=== PATIENT | female | born 1955 | race Caucasian/White ===

== ENCOUNTER 2023-09-24 08:55 | Outpatient (OUT) | payer MEDICARE, SELFPAY ==
--- NOTE | 2023-09-24 | XR_ITS ---
The [address] [address] Patient Name: PAT DELAROSA MRN: [id number] date: 1955 Sex: F Assigned Patient Location: [facility] Current Patient Location: RAD Accession/Order Number: [id number] Exam Date: 09/24/2023 09:03 Report Date: 09/24/2023 11:26 At the request of: ASHWINI GARCIA Procedure: XR ankle RT min 3V PROCEDURE: XR ankle RT min 3V COMPARISON: 10/16/2022 HISTORY: RIGHT ANKLE PAIN FINDINGS: BONES:Stable tibiotalar joint arthroplasty. No acute fracture, dislocation or mechanical failure. 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 To severe degenerative changes with joint space narrowing and marginal osteophyte formation most significant talar navicular joint. Moderate enthesopathic spurring of the calcaneus at the Achilles and plantar insertions SOFT TISSUES:Negative. No visible soft tissue swelling. EFFUSION:None visible. OTHER: Negative. XR/XR ankle RT min 3V IMPRESSION: Stable tibiotalar arthroplasty Electronically authenticated by: EDI ADAMS Date: 09/24/2023 11:26
== END 2023-09-24 08:56 | disposition home or self-care (01) ==
LOC: RAD 09:00
PROVIDERS: Visit Provider Podiatrist Foot & Ankle Surgery
DX: M25.571 Pain in right ankle and joints of right foot (principal)
CPT/HCPCS: 73610

== ENCOUNTER 2024-10-06 07:09 | Outpatient (OUT) | payer MEDICARE, SELFPAY ==
--- NOTE | 2024-10-06 | XR_ITS ---
[address] [address] Patient Name: PAT DELAROSA MRN: [id number] date: 1955 Sex: F Assigned Patient Location: [facility] Current Patient Location: Accession/Order Number: [id number] Exam Date: 10/06/2024 07:15 Report Date: 10/08/2024 12:04 At the request of: ASHWINI GARCIA Procedure: XR ankle RT min 3V PROCEDURE: XR ankle RT min 3V COMPARISON: 09/24/2023 HISTORY: M25.571 Ankle pain FINDINGS: BONES:Stable tibiotalar arthroplasty in anatomic alignment. 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 Moderate degenerative changes midfoot and hindfoot with joint space narrowing marginal osteophyte formation and enthesopathic spurring SOFT TISSUES:Negative. No visible soft tissue swelling. EFFUSION:None visible. OTHER: Negative. XR/XR ankle RT min 3V IMPRESSION: Stable tibiotalar arthroplasty. Electronically authenticated by: EDI ADAMS Date: 10/08/2024 12:04
--- OUTSIDE RECORDS SUMMARY | 2024-10-06 07:12 | XMS_ITS | CCD ---
Demographics Address [address] [place] [address] Preferred Language en Marital Status Single Voodoo Affiliation Unknown Race White Ethnic Group Not or Lati no Author Organization [facility] ion [facility] Care Team Providers Care Benefits Clerk Name Role Phone MD Raji Haile Primary Care Provider [phone] SHIELA Hernandez Attending Provider [phone] MD Lazara Raji Primary Care Provider MD Minh Mazariegos Attending Provider MD Minh Mazariegos Admit Provider Minh Mazariegos Unavailable MD Lazara Raji Primary Care Provider MD Minh Mazariegos Attending Provider MD Lazara Raji Primary Care Provider MD Minh Mazariegos Attending Provider [phone] DR EDI ADAMS V Consulting Unavailable ASHWINI GARCIA Admitting Unavailable ASHWINI GARCIA Attending Unavailable ASHWINI GARCIA Consulting Unavailable RACH SEN Admitting Unavailable DR KIET PHAM Consulting Unavailable RACH SEN Attending Unavailable RACH SEN Consulting Unavailable Bharat Valdivia Unavailable MD Lazara [facility] Primary Care Provider MD Minh Mazariegos Attending Provider MD Bharat Valdivia Attending Provider MD Raji Haile Primary Care Provider [phone] MD Bharat Valdivia Attending Provider CLAUDE Valentine Attending Provider Sanjuana Valentine Unavailable MD Lazara [facility] Primary Care Provider CLAUDE Valentineica Attending Provider MD Bharat Valdivia Attending Provider [phone] Lazara ASHBY, [facility] Primary Care Provider MD Lazara [facility] Primary Care Provider [phone] Ly, DO Temi L Attending Provider Unavailable Primary Care Provider UnavailMD Minh Goldberg Attending Provider Frances REYES Yolanda Leach Unavailable Lazara ASHBY [facility] Primary Care Provider BAN, TRACIE Attending Unavailable BAN, TRACIE Admitting Unavailable [facility] Primary Care Unavailable MINH MAZARIEGOS Attending Unavailable MINH MAZARIEGOS Admitting Unavailable MD Lazara [facility] Care Provider [phone] Ly, DO Temi L Attending Provider SHIELA Horowitz Attending Provider MD Lazara [facility] Care Provider Ly, DO Temi L Attending Provider MD Bharat Valdivia Attending Provider Unav ailable BAN, TRACIE Referring Unavailable BAN, TRACIE Attending Unavailable LORI AGUAYO Referring Unavailable [facility] Primary Care Unavailable LY, TEMI Referring Unavailable [facility] Primary Care Unavailable THANIA WELLS Attending Unavailable [facility] Primary Care Unavailable AUGUSTINA MCGARRY Referring Unavailable BAN, TRACIE Referring Unavailable Ly, Temi L Admitting Unavailable Ly, Temi L Attending Unavailable [facility] Primary Care Unavailable Ly, Temi L Admitting Unavailable Ly, Temi L Attending Unavailable [facility] Primary Care Unavailable [facility] Primary Care Unavailable Bharat Valdivia Admitting UnavailBharat Flaherty Attending UnavailAnisa Heredia Admitting Unavailable Anisa Horowitz Attending Unavailable [facility] Care Unavailable [facility] Primary Care Unavailable Minh Mazariegos Admitting Unavailable Minh Mazariegos Attending Unavailable Ly, Temi L Admitting Unavailable Ly, Temi L Attending Unavailable [facility] Primary Care Unavailable SHAHBAZ ROLON Referring Unavailable LAZARA, RAJI Arreola Referring Unavailable LAZARA, RAJI Arreola Attending Unavailable LAZARA, RAJI Arreola Attending Unavailable APLING, ALICE Lona Attending Unavailable APLING, ALICE B Referring Unavailable LAZARA, RAJI F Attending Unavailable LAZARA, RAJI F Attending Unavailable LAZARA, RAJI F Referring Unavailable LAZARA, RAJI Arreola Referring Unavailable LAZARA, RAJI Arreola Attending Unavailable LAZARA, RAJI Arreola Referring Unavailable LAZARA, RAJI Arreola Attending Unavailable Allergies Allergy Classification Reported Allergen(s) Allergy Type Date of Onset Reaction(s) Facility [facility]io[facility]onists (1 source) Morphine Drug Allergy 09-08-19 08 [facility] (20 sources) Morphine; Translations: [morphine] Drug Allergy 09-08-19 08 Palpitations [facility] (1 source) bee venom Drug allergy (disorder) [facility] (20 sources) buPROPion Drug Allergy 03-30-20 18 Hallucinations [facility] (20 sources) Honey bee venom Allergy to substance 01-27-20 23 Swelling [facility] (20 sources) varenicline Drug Allergy 10-23-19 22 Hallucinations [facility] (1 source) Acetaminophen / oxyCODONE; Translations: [Percocet 5/325] Drug Allergy [facility] Rep[facility] (4 sources) bee venom protein (honey bee); Translations: [bee venom protein (honey bee)] Allergy to substance 05-12-20 24 Edema [facility] (18 sources) Acetaminophen / oxyCODONE Drug Allergy 03-08-20 24 Nausea And Vomiting [facility] Medications Current Medications Medication Drug Class(es) Dates Sig (Normalized) Sig (Original) [id number] 200 actuat albuterol 0.09 mg/actuat metered dose inhaler (4 sources) beta2-Adrenergic Agonist Start: 04-28-2023 take 2 puff(s) by inhalation every six hours for wheezing albuterol HFA 90 mcg/act inhaler Indications: Chronic obstructive pulmonary disease, unspecified COPD type ([facility]/HCC) Inhale 2 puffs every 6 (six) hours if needed for wheezing. 18 g 11 04/28/2023 Active ascorbic acid 500 mg oral capsule (1 source) Vitamin C Vitamin C 500 MG Orally Active 24 hr buPROPion hydrochloride 300 mg extended release oral tablet (9 sources) Aminoketone Start: 10-16-2023 End: 10-23-2023 take 1 tablet by mouth every twenty-four hours in the morning buPROPion XL (Wellbutrin XL) 150 MG 24 hr tablet Indications: Major depressive disorder, recurrent, moderate (HCC) (CMS/HCC) Take 1 tablet (150 mg) by mouth in the morning for 7 days. Take 150 mg po every day x 1 week then 300 mg po qam Do not crush, chew, or split.. 7 tablet 0 10/16/2023 10/23/2023 Active Start: 10-16-2023 End: 10-15-2024 take 1 tablet by mouth every twenty-four hours in the morning buPROPion XL (Wellbutrin XL) 300 MG 24 hr tablet Indications: Major depressive disorder, recurrent, moderate (CMS/HCC) Take 1 tablet (300 mg) by mouth in the morning. Do not crush, chew, or split.. 30 tablet 11 10/16/2023 06/08/2024 Discontinued (Therapy completed) Calcium + D 500-1000-40 MG-UNT-MCG (11 sources) Calcium + D 500- 1000-40 MG-UNT-MCG Orally Active calcium carbonate 1250 mg chewable tablet (20 sources) Start: 12-16-2023 take 1 tablet by mouth once daily Calcium Carbonate (Calcium 500) 500 mg calcium (1,250 mg) tablet,chewable Active 500 MG PO Daily December 16, 2023 12:00am Start: 01-11-2022 End: 04-02-2023 Calcium Carbonate (Calcium 6 00) 600 mg calcium (1,500 mg) Tablet Discontinued 1200 MG PO Daily January 11, 2022 12:00am April 02, 2023 11:13am End: 06-08-2024 calcium carbonate (Os-Reji) 1 250 (500 Ca) MG tablet Take 500 mg by mouth in the morning. 06/08/2024 Discontinued (Therapy completed) calcium carbonat e (CALCIUM 300 ORAL) Take by mouth once daily. Active calcium carbonat e (CALCIUM 300 ORAL) Take by mouth once daily. 0 Active calcium carbonate 1250 mg / cholecalciferol 1000 unt / vitamin k 0.4 mg chewable tablet (1 source) Vitamin D Calcium + D 500- 1000-40 MG-UNT-MCG Orally Active cholecalciferol 0.125 mg oral tablet (20 sources) Vitamin D Start: 01-11-2022 take 1 tablet by mouth once daily Cholecalciferol (Vitamin D3) (Vitamin D3) 125 mcg (5,000 unit) Tablet Active 5000 UNIT PO Daily January 11, 2022 12:00am Cholecalciferol, Vitamin D3, (VITAMIN D-3) 50 mcg (2,000 unit) cap Take by mouth once daily. Active doxycycline hyclate 100 mg oral tablet (8 sources) Tetracycline-class Drug Start: 09-02-2024 End: 09-12-2024 doxycycline (Vibra-Tabs) 100 MG tablet Indications: Chronic obstructive pulmonary disease with acute exacerbation (CMS/HCC) Take 1 tablet (100 mg) by mouth in the morning and 1 tablet (100 mg) before bedtime. Do all this for 10 days. Take with a full glass of water and do not lie down for at least 30 minutes after.. 20 tablet 09/02/2024 09/12/2024 Active Start: 06-22-2024 End: 07-02-2024 doxycycline (Vibra-Tabs) 100 MG tablet Indications: COPD exacerbation (CMS/HCC) Take 1 tablet (100 mg) by mouth in the morning and 1 tablet (100 mg) before bedtime. Do all this for 10 days. Take with a full glass of water and do not lie down for at least 30 minutes after.. 20 tablet 06/22/2024 07/02/2024 Active Start: 10-16-2023 End: 10-26-2023 doxycycline (Vibra-Tabs) 100 MG tablet Indications: COPD exacerbation (CMS/HCC) Take 1 tablet (100 mg) by mouth in the morning and 1 tablet (100 mg) before bedtime. Do all this for 10 days. Take with a full glass of water and do not lie down for at least 30 minutes after.. 20 tablet 0 10/16/2023 10/26/2023 Active DULoxetine 60 mg delayed release oral capsule (20 sources) Serotonin and Norepinephrine Reuptake Inhibitor Start: 01-12-2024 End: 01-11-2025 take 1 capsule by mouth once daily DULoxetine (Cymbalta) [address] capsule Indications: Major depressive disorder, recurrent, moderate (CMS/HCC) Take 1 capsule (60 mg) by mouth Daily Do not crush or chew. 30 capsule 11 01/12/2024 01/11/2025 Active Start: 12-16-2023 take 1 capsule by mo ut once daily Duloxetine Active 30 MG PO Daily December 16, 2023 12:00am FreeTextSig: TAKE 1 CAPSULE BY MOUTH EVERY DAY Oral; Note: Source Status: Taking; Refills: 2; Qty: 90 Each; Provider: LAZARA ELLIS Start: 12-16-2023 take 1 capsule by mo ut once daily Duloxetine Active 60 MG PO Daily December 16, 2023 12:00am FreeTextSig: TAKE 1 CAPSULE BY MOUTH EVERY DAY Oral; Note: Source Status: Taking; Refills: 2; Qty: 90 Each; Provider: LAZARA ELLIS Start: 10-16-2023 End: 10-30-2023 take 1 capsule by mouth in the morning DULoxetine (Cymbalta) [address] capsule Indications: Major depressive disorder, recurrent, moderate (HCC) (CMS/HCC) Take 1 capsule (30 mg) by mouth in the morning for 14 days. Do not crush or chew.. 14 capsule 0 10/16/2023 10/30/2023 Active Start: 07-22-2023 End: 10-16-2023 take 1 capsule by mouth in the morning DULoxetine (Cymbalta) [address] capsule Indications: Current mild episode of major depressive disorder without prior episode (HCC) (CMS/HCC) TAKE 1 CAPSULE(60 MG) BY MOUTH IN THE MORNING 90 capsule 0 07/22/2023 10/16/2023 Discontinued (Therapy completed) Start: 01-11-2022 End: 04-02-2023 take 60 mg by mouth once daily Duloxetine Discontinued 60 MG PO Daily January 11, 2022 12:00am April 02, 2023 11:13am Hxdbrqhmfwr-Lvloitncl-Ipunxk (Trelegy Ellipta) 200-62.5-25 MCG/ACT aerosol powder (20 sources) Start: 10-31-2023 take 1 puff(s) by inhalation once daily Cvcrdyclsqv-Pvwaimxmm-Seqbdz (Trelegy Ellipta) 200-62.5-25 MCG/ACT aerosol powder Indications: Chronic obstructive pulmonary disease, unspecified COPD type (CMS/HCC) Inhale 1 puff Daily 180 each 3 10/31/2023 Active Fluticasone-Umec lidin-Vilant (Trelegy Ellipta) 200-62.5-25 MCG/ACT aerosol powder Inhale. 0 Active Oxzsvfrqjrs-Knkiihhms-Algfad er (11 sources) Start: 12-16-2023 Gkjlzfmtkwf-Kafitcyxb-Cqopgd er (Trelegy Ellipta) 200-62.5-25 mcg blister with device Active 1 INH INHALATION Daily December 16, 2023 12:00am lnfthmqkhvw-asgifuslc-mtmmee er (TRELEGY ELLIPTA) 200-62.5-25 mcg inhalation powder (7 sources) take 1 puff(s) by inhalation once daily evrunuvfnah-uscghjzky-opxuyvtl (TRELEGY ELLIPTA) 200-62.5-25 mcg inhalation powder Inhale 1 Puff as instructed once daily. Active take 1 puff(s) by in halation once daily wreomhzstbv-uityiuehk-qiivdoau (TRELEGY ELLIPTA) 200-62.5-25 mcg inhalation powder Inhale 1 Puff as instructed once daily. 0 Active hydroCHLOROthiazide 25 mg oral tablet (20 sources) Thiazide Diuretic Start: 03-17-2023 End: 03-16-2024 take 1 tablet by mouth in the morning hydroCHLOROthiazide (HYDRODiuril) 25 MG tablet Indications: Essential hypertension (CMS/HCC) TAKE 1 TABLET(25 MG) BY MOUTH IN THE MORNING 90 tablet 3 12/19/2023 Active Lactobacillus acidophilus (7 sources) Lactobacillus acidophilus (PROBIOTIC ACIDOPHILUS ORAL) Take by mouth once daily. Active Lactobacillus ac idophilus (PROBIOTIC ACIDOPHILUS ORAL) Take by mouth once daily. 0 Active lidocaine 0.05 mg/mg medicated patch (3 sources) Antiarrhythmic, Amide Local Anesthetic Start: 06-20-2023 Lidocaine 5 % 1 patch remove after 12 hours Externally Once a day for 30 Jun, Active linaclotide 0.29 mg oral capsule (20 sources) Guanylate Cyclase-C Agonist Start: 02-24-2024 End: 02-23-2025 take 2 capsules by mouth before mealtime linaCLOtide (Linzess) 145 MCG capsule Indications: Mixed hyperlipidemia (CMS/HCC) Take 2 capsules (290 mcg) by mouth in the morning. Take before meals. 180 capsule 3 02/24/2024 06/08/2024 Discontinued (Therapy completed) Start: 01-02-2024 Linzess 290 MC G capsule 04/05/2024 Active Start: 01-11-2022 End: 05-18-2024 take 1 capsule by mouth once daily Linaclotide (Linzess) 145 mcg capsule Discontinued 145 MCG PO Daily January 11, 2022 12:00am May 18, 2024 11:03am take 1 capsule by mo [facility] every twenty-four hours Linzess 145 MCG 1 capsule Orally Once a day for 30 days Active Linzess 145 MCG Not Available Oral for 30 Days Active lipase/protease/amylase (JING PEP ORAL) (7 sources) take 1 capsule by mouth once daily at mealtime lipase/protease/amylase (ZENPEP ORAL) Take by mouth. 40,000 international unit(s) 2 capsules with meals daily and 1 capsule with snacks. Active take 1 capsule by [facility] once daily at mealtime lipase/protease/amylase (ZENPEP ORAL) Ta ke by mouth. 40,000 international unit(s) 2 capsules with meals daily and 1 capsule with snacks. 0 Active methylPREDNISolone 4 mg oral tablet (3 sources) Corticosteroid Start: 06-20-2023 Medrol 4 MG as directed Orally daily for Jun, Active metoprolol tartrate 25 mg oral tablet (20 sources) beta-Adrenergic Yara take 1 tablet by mouth once metoprolol tartrate (Lopressor) 25 MG tablet Take 25 mg by mouth 1 (one) time Active metoprolol tartr ate (Lopressor) 25 MG tablet every 12 (twelve) hours Active mirtazapine 30 mg oral tablet (20 sources) Start: 03-19-2023 take 1 tablet by mouth at bedtime mirtazapine (Remeron) 30 MG tablet Take 30 mg by mouth at bedtime 03/19/2023 Active Nirmatrelvir&Ritonavir 300/100 (Paxlovid, 300/100,) 20 x 150 MG & 10 x 100MG tablet therapy pack (7 sources) Start: 08-30-2024 take 3 tablets by mouth in the morning Nirmatrelvir&Ritonavir 300/100 (Paxlovid, 300/100,) 20 x 150 MG & 10 x 100MG tablet therapy pack Indications: COVID-19 Take 3 tablets by mouth in the morning and 3 tablets before bedtime. 30 each 08/30/2024 Active Inkom 1-Zjd-Wbe-Fish Oil (Fish Oil) 1,200 (144-216) mg Capsule (20 sources) Start: 01-11-2022 take 1 capsule by mouth once daily Inkom 8-Rti-Lxr-Fish Oil (Fish Oil) 1,200 (144-216) mg Capsule Active 1 CAP PO Daily January 11, 2022 8:51am Start: 01-11-2022 take 1 capsule by mo uth once daily Inkom 7-Asl-Kps-Fish Oil (Fish Oil) 1,200 (144-216) mg Capsule Active 1 CAP PO Daily January 10, 2022 11:00pm Start: 01-11-2022 take 1 capsule by mo uth once daily Inkom 3-Zkf-Jif-Fish Oil (Fish Oil) 1,200 (144-216) mg Capsule Active 1 CAP PO Daily January 11, 2022 12:00am omega-3 DHA-EPA (FISH OIL) 1,200 (144-216) mg capsule (7 sources) take 1 capsule by mo uth once daily at breakfast omega-3 DHA-EPA (FISH OIL) 1,200 (144-216) mg capsule Take 1 capsule by mouth daily with breakfast. Active take 1 capsule by mo uth once daily at breakfast omega-3 DHA-EPA (FISH OIL) 1,200 (144-21 6) mg capsule Take 1 capsule by mouth daily with breakfast. 0 Active predniSONE 10 mg oral tablet (20 sources) Start: 09-02-2024 End: 09-12-2024 take 1 tablet by mouth five times daily, then take 1 tablet by mouth four times daily, then take 1 tablet by mouth three times daily, then take 1 tablet by mouth twice daily, then take 1 tablet by mouth once daily predniSONE (Deltasone) 10 MG tablet Indications: Chronic obstructive pulmonary disease with acute exacerbation (CMS/HCC) Take 1 tablet (10 mg) by mouth 5 (five) times a day for 2 days, THEN 1 tablet (10 mg) 4 (four) times a day for 2 days, THEN 1 tablet (10 mg) 3 (three) times a day for 2 days, THEN 1 tablet (10 mg) 2 (two) times a day for 2 days, THEN 1 tablet (10 mg) Daily for 2 days. 30 tablet 09/02/2024 09/12/2024 Active Start: 10-22-2024 End: 06-29-2024 take 1 tablet by mouth four times daily, then take 1 tablet by mouth three times daily, then take 1 tablet by mouth twice daily, then take 1 tablet by mouth once daily predniSONE (Deltasone) 10 MG tablet Indications: COPD exacerbation (CMS/HCC) Take 1 tablet (10 mg) by mouth 4 (four) times a day for 2 days, THEN 1 tablet (10 mg) 3 (three) times a day for 2 days, THEN 1 tablet (10 mg) 2 (two) times a day for 2 days, THEN 1 tablet (10 mg) Daily for 2 days. 20 tablet 06/22/2024 06/29/2024 Active Start: 10-16-2023 End: 10-26-2023 take 1 tablet by mouth five times daily, then take 1 tablet by mouth four times daily, then take 1 tablet by mouth three times daily, then take 1 tablet by mouth twice daily, then take 1 tablet by mouth once daily predniSONE (Deltasone) 10 MG tablet Indications: COPD exacerbation (CMS/HCC) Take 1 tablet (10 mg) by mouth 5 (five) times a day for 2 days, THEN 1 tablet (10 mg) 4 (four) times a day for 2 days, THEN 1 tablet (10 mg) 3 (three) times a day for 2 days, THEN 1 tablet (10 mg) 2 (two) times a day for 2 days, THEN 1 tablet (10 mg) Daily for 2 days. 30 tablet 0 10/16/2023 10/26/2023 Active Start: 01-25-2022 Prednisone Act eleuterio 1 dose pk PO per package directions January 25, 2022 8:15am take 4 tabs for 3 days then take 3 tabs for 3 days then take 2 tabs for 3 days then take 1 tab for 3 days Start: 01-25-2022 End: 04-02-2023 Prednisone Discontinued 1 do se pk PO per package directions January 24, 2022 11:00pm April 02, 2023 10:14am take 4 tabs for 3 days then take 3 tabs for 3 days then take 2 tabs for 3 days then take 1 tab for 3 days Start: 01-25-2022 End: 04-02-2023 Prednisone Discontinued 1 do se pk PO per package directions January 25, 2022 12:00am April 02, 2023 11:14am take 4 tabs for 3 days then take 3 tabs for 3 days then take 2 tabs for 3 days then take 1 tab for 3 days Start: 01-25-2022 Prednisone Act eleuterio 1 dose pk PO per package directions January 24, 2022 11:00pm take 4 tabs for 3 days then take 3 tabs for 3 days then take 2 tabs for 3 days then take 1 tab for 3 days Start: 01-25-2022 Prednisone Act eleuterio 1 dose pk PO per package directions January 25, 2022 12:00am take 4 tabs for 3 days then take 3 tabs for 3 days then take 2 tabs for 3 days then take 1 tab for 3 days Probiotic Product (DAILY PRO BIOTIC PO) (20 sources) Probiotic Produc t (DAILY PROBIOTIC PO) Take by mouth Active Probiotic Produc t (DAILY PROBIOTIC PO) Take by mouth. Active Probiotic Produc t (DAILY PROBIOTIC PO) Take by mouth. 0 Active Turmeric Curcumin 500 MG (12 sources) Turmeric Curcumi n 500 MG Orally Active Vitamin C 500 MG (11 sources) Vitamin C 500 MG Orally Active Completed/Discontinued Medications Medication Drug Class(es) Dates Sig (Normalized) Sig (Original) acetaminophen 325 mg / HYDROcodone bitartrate 5 mg oral tablet (9 sources) Opioid Agonist Start: 06-07-2023 End: 06-08-2024 HYDROcodone-acetami nophen ([place]) 5-325 MG tablet 06/07/2023 06/08/2024 Discontinued (Therapy completed) acetaminophen 325 mg / oxyCODONE hydrochloride 5 mg oral tablet (20 sources) Opioid Agonist Start: 07-15-2017 End: 01-11-2022 take 1 tablet by mouth every six hours Oxycodone-Acetamino phen Discontinued 1 TAB PO Q6H 40 14 July 15, 2017 1:00am January 11, 2022 8:42am amylase [id number] unt / lipase 49255 unt / protease [id number] unt delayed release oral capsule (13 sources) Start: 06-02-2023 End: 06-08-2024 take 2 capsules by mouth three times daily at mealtime, then take 1 capsule by mouth twice daily Zenpep [id number] units capsule delayed-release particles capsule TAKE 2 CAPSULES BY MOUTH THREE TIMES DAILY WITH MEALS AND 1 CAPSULE TWICE DAILY WITH SNACKS 06/02/2023 06/08/2024 Discontinued (Therapy completed) Start: 05-29-2023 take 2 capsules by m outh once daily at mealtime, then take 1 capsule by mouth once daily Zenpep [id number] UNIT 2 capsules with meals and 1 with snacks Orally daily for 30 days Please allow for 3 meals and 2 snacks daily May, Active atorvastatin 20 mg oral tablet (20 sources) HMG-CoA Reductase Inhibitor Start: 07-02-2017 End: 01-11-2022 take 1 tablet by mouth once daily at bedtime Atorvastatin Discontinued 1 TAB PO Daily at bedtime July 02, 2017 12:00am January 11, 2022 8:37am 120 actuat budesonide 0.16 mg/actuat / formoterol fumarate 0.0045 mg/actuat metered dose inhaler (20 sources) Corticosteroid, beta2-Adrenergic Agonist Start: 01-11-2022 End: 12-16-2023 take 1 puff(s) by inhalation twice daily Budesonide-Formote rol (Symbicort) 160-4.5 mcg/actuation HFA aerosol inhaler Discontinued 2 PUFF INHALATION Twice daily January 11, 2022 12:00am December 16, 2023 9:36am Symbicort 160-4. 5 MCG/ACT Not Available Inhalation for 30 Days Active Symbicort 160-4. 5 MCG/ACT Not Available Inhalation for 30 Days Active cephalexin 500 mg oral capsule (20 sources) Cephalosporin Antibacterial Start: 01-25-2022 End: 04-02-2023 take 500 mg by mouth three times daily Cephalexin Discontinued 500 MG PO Three times daily January 25, 2022 12:00am April 02, 2023 11:14am Start: 07-15-2017 End: 01-11-2022 take 1 capsule by mouth every eight hours Cephalexin (Keflex) 500 mg capsule Discontinued 500 MG PO Q8H 21 July 15, 2017 1:00am January 11, 2022 8:42am cetirizine hydrochloride 10 mg oral capsule (5 sources) Histamine-1 Receptor Antagonist Start: 05-08-2010 End: 02-02-2024 CETIRIZINE 10 MG CAP cyclobenzaprine hydrochloride 10 mg oral tablet (20 sources) Muscle Relaxant Start: 07-02-2017 End: 01-11-2022 take 1 tablet by mouth once daily at bedtime Cyclobenzaprine Discontinued 1 TAB PO Daily at bedtime 40 July 15, 2017 8:19am January 11, 2022 8:42am Start: 09-04-2007 End: 02-02-2024 take 10 mg by mouth three times daily Cyclobenzaprine Discontinued 10 MG PO Three times daily 40 January 25, 2022 12:00am April 02, 2023 11:13am docosahexaenoic acid 120 mg / eicosapentaenoic acid 180 mg oral capsule (9 sources) End: 06-08-2024 omega-3 (Fish Oil) 1000 MG capsule 1 capsule 1 (one) time each day at the same time. 06/08/2024 Discontinued (Therapy completed) docusate sodium 50 mg / sennosides, alf 8.6 mg oral tablet (20 sources) Start: 07-15-2017 End: 01-11-2022 take 2 tablets by mouth twice daily Sennosides-Docusa te Sodium (Dok Plus) 8.6-50 mg Tablet Discontinued 2 TAB PO Twice daily 40 July 15, 2017 1:00am January 11, 2022 8:42am escitalopram 20 mg oral tablet (20 sources) Serotonin Reuptake Inhibitor Start: 07-02-2017 End: 01-11-2022 take 1 tablet by mouth once daily Escitalopram Oxalate Discontinued 1 TAB PO Daily July 02, 2017 12:00am January 11, 2022 8:42am 24 hr etodolac 500 mg extended release oral tablet (20 sources) Nonsteroidal Anti-inflammatory Drug Start: 01-11-2022 End: 04-02-2023 take 500 mg by mouth twice daily Etodolac Discontinued 500 MG PO Twice daily January 11, 2022 12:00am April 02, 2023 11:13am fluconazole 100 mg oral tablet (5 sources) Azole Antifungal Start: 03-30-2024 End: 06-08-2024 take 1 tablet by mouth once daily fluconazole (Diflucan) 100 MG tablet Indications: Thrush Take 1 tablet (100 mg) by mouth Daily 3 tablet 03/30/2024 06/08/2024 Discontinued (Therapy completed) Ctmneu-Kaybebgv-Rojigl e (Zenpep) 40,000-126,000- 168,000 unit capsule,delayed release(DR/EC) (20 sources) Start: 11-27-2023 End: 05-18-2024 Apamss-Kbtonsgh-V mylase (Zenpep) 40,000-126,000- 168,000 unit capsule,delayed release(DR/EC) Discontinued 0 PO As Directed November 27, 2023 10:59am May 18, 2024 11:03am 2 capsules three times a day and 1 capsule with a snack orally as directed; Start: 11-27-2023 Lipase-Proteas e-Amylase (Zenpep) 40,000-126,000- 168,000 unit capsule,delayed release(DR/EC) Active 0 PO As Directed November 27, 2023 10:59am 2 capsules three times a day and 1 capsule with a snack orally as directed; Start: 11-27-2023 End: 11-27-2023 take [id number] capsules by mouth three times daily at mealtime Egjrih-Xxttiwss-Oyevkzb (Zenpep) 40,000-126,000- 168,000 unit capsule,delayed release(DR/EC) Discontinued 1 CAP PO Three times daily November 27, 2023 12:00am November 27, 2023 11:00am administer with meals and/or snacks meloxicam 15 mg oral tablet (5 sources) Nonsteroidal Anti-inflammatory Drug Start: 09-04-2007 End: 02-02-2024 MELOXICAM 15 MG TAB niacin 500 mg oral tablet (5 sources) Nicotinic Acid Start: 05-08-2010 End: 02-02-2024 NIACIN 500 MG TAB omeprazole 40 mg delayed release oral capsule (20 sources) Proton Pump Inhibitor Start: 03-09-2024 End: 08-31-2027 take 1 capsule by mouth before mealtime omeprazole (PriLOSEC) [address] capsule Indications: Gastroesophageal reflux disease without esophagitis Take 1 capsule (40 mg) by mouth in the morning. Take before meals. Do not crush or chew.. 90 capsule 3 03/09/2024 09/15/2024 Discontinued (Reorder) Start: 07-02-2017 End: 01-11-2022 take 40 mg by mouth once daily Omeprazole Active 40 MG PO Daily January 11, 2022 12:00am oxyCODONE hydrochloride 5 mg oral tablet (20 sources) Opioid Agonist Start: 01-25-2022 End: 04-02-2023 take 5-10 mg by mouth every six hours Oxycodone Discontinued 5 - 10 MG PO Q6H 20 04January 25, 2022 April 02, 2023 11:14am polyethylene glycol 3350 [id number] mg / potassium chloride 2970 mg / sodium bicarbonate 6740 mg / sodium chloride 5860 mg / sodium sulfate 47006 mg powder for oral solution (5 sources) Osmotic Laxative Start: 05-13-2024 End: 06-08-2024 GaviLyte-G 236 g solution FOLLOW INSTRUCTIONS GIVEN BY OFFICE 05/13/2024 06/08/2024 Discontinued (Therapy completed) Start: 05-12-2024 End: 06-01-2024 Peg 3350-Electrolytes (Golyt glenn) 236-22.74-6.74 -5.86 gram recon soln Discontinued 240 ML PO Q10M 3999May 12, 2024 12:00am June 01, 2024 10:31am Follow instructions given by office RABEprazole sodium 20 mg delayed release oral tablet (5 sources) Proton Pump Inhibitor Start: 05-08-2010 End: 02-02-2024 rabeprazole sodium(ACIPHEX 20 MG TAB) simvastatin 40 mg oral tablet (5 sources) HMG-CoA Reductase Inhibitor Start: 05-08-2010 End: 02-02-2024 SIMVASTATIN 40 MG TAB traZODone hydrochloride 50 mg oral tablet (5 sources) Serotonin Reuptake Inhibitor Start: 05-08-2010 End: 02-02-2024 TRAZODONE 50 MG TAB Triamcinolone (20 sources) Corticosteroid Start: 03-11-2018 Kenalog -40 mg Mar, 10 mg Start: 01-15-2018 Kenalog -40 mg December, 10 mg Problems Active Problems Problem Classification Problem Date Documented Da te Episodic/Chronic Abdominal hernia (4 sources) Hiatal hernia; Translations: [Diaphragmatic hernia without obstruction or gangrene] Episodic Anal and rectal conditions (1 source) Disease of anus and rectum, unspecified; Translations: [Anal lesion] Onset: Episodic Anxiety disorders (20 sources) Anxiety; Translations: [Anxiety disorder, unspecified] Onset: 6 05-30-2023 Chronic Aortic; peripheral; and visceral artery aneurysms (5 sources) Aortic aneurysm; Translations: [Aortic aneurysm of unspecified site, without rupture] Chronic Cataract (20 sources) Senile cataract; Translations: [Unspecified age-related cataract] Onset: 0 05-02-2010 Chronic Chronic obstructive pulmonary disease and bronchiectasis (20 sources) Chronic obstructive lung disease; Translations: [Chronic obstructive pulmonary disease, unspecified] Onset: 5 01-28-2023 Chronic Disorders of lipid metabolism (20 sources) Mixed hyperlipidemia; Translations: [Mixed hyperlipidemia] Onset: 6 01-28-2023 Chronic E Codes: Fall (1 source) Unspecified fall, initial encounter Episodic Esophageal disorders (20 sources) Gastroesophageal reflux disease; Translations: [Gastro-esophageal reflux disease without esophagitis] Onset: 6 Chronic Essential hypertension (20 sources) Essential hypertension; Translations: [Essential (primary) hypertension] Onset: 8 01-28-2023 Chronic Gastritis and duodenitis (20 sources) Atrophic gastritis; Translations: [Chronic atrophic gastritis without bleeding] Onset: 9 01-28-2023 Chronic Genitourinary symptoms and ill-defined conditions (20 sources) Genuine stress incontinence; Translations: [Stress incontinence (female) (male)] Onset: 0 01-28-2023 Chronic Immunizations and screening for infectious disease (3 sources) Patient encounter status; Translations: [Encounter for screening for human immunodeficiency virus [HIV]] 01-27-2024 Episodic Miscellaneous mental health disorders (20 sources) Primary insomnia; Translations: [Primary insomnia] Onset: 6 01-28-2023 Chronic Mood disorders (20 sources) Recurrent major depressive episodes, moderate ; Translations: [Major depressive disorder, recurrent, moderate] Onset: 8 01-28-2023 Chronic Noninfectious gastroenteritis (2 sources) Gastroenteritis; Translations: [Noninfective gastroenteritis and colitis, unspecified] 09-14-2024 Episodic Nonspecific chest pain (2 sources) Chest wall pain; Translations: [Other chest pain] 06-22-2024 Episodic Osteoarthritis (20 sources) Arthritis of left hip; Translations: [Unilateral primary osteoarthritis, left hip] Onset: 04-05-201 8 Chronic Other acquired deformities (11 sources) Lumbar spondylolisthesis; Translations: [Spondylolisthesis, lumbar region] Episodic Other acquired deformities (4 sources) Spondylolisthesis, lumbar region Onset: 2 Resolved: 2 Episodic Other and unspecified benign neoplasm (1 source) Polyp ; Translations: [Benign neoplasm, unspecified site] 04-27-2024 Episodic Other and unspecified benign neoplasm (1 source) Personal history of colonic polyps; Translations: [Personal history of colonic polyps] 05-12-2024 Episodic Other and unspecified benign neoplasm (1 source) Benign neoplasm, unspecified site; Translations: [Adenomatous polyposis] Onset: 4 Episodic Other connective tissue disease (20 sources) Artificial knee joint present; Translations: [Presence of unspecified artificial knee joint] Onset: 8 01-28-2023 Chronic Other connective tissue disease (20 sources) Arthrodesis status; Translations: [Arthrodesis status] Onset: 2 Resolved: 2 Episodic Other connective tissue disease (8 sources) History of lumbar fusion; Translations: [Arthrodesis status] 01-20-2024 Episodic Other disorders of stomach and duodenum (6 sources) Indigestion; Translations: [Functional dyspepsia] Episodic Other disorders of stomach and duodenum (1 source) Functional dyspepsia Episodic Other gastrointestinal disorders (20 sources) Irritable bowel syndrome characterized by constipation; Translations: [Irritable bowel syndrome with constipation] Onset: 8 01-28-2023 Chronic Other gastrointestinal disorders (1 source) Constipation, unspecified Episodic Other gastrointestinal disorders (2 sources) Chronic constipation; Translations: [Other constipation] 05-12-2024 Episodic Other gastrointestinal disorders (2 sources) Other constipation; Translations: [Constipation, unspecified] 05-12-2024 Episodic Other nervous system disorders (20 sources) Cervical myelopathy; Translations: [Disease of spinal cord, unspecified] Onset: 4 01-20-2024 Chronic Other nervous system disorders (12 sources) Disease of spinal cord, unspecified; Translations: [Cervical spondylosis with myelopathy] Onset: 2 Resolved: 2 Chronic Other nervous system disorders (20 sources) Chronic pain; Translations: [Other chronic pain] Onset: 6 01-28-2023 Chronic Other nutritional; endocrine; and metabolic disorders (1 source) Abnormal weight loss Episodic Other screening for suspected conditions (not mental disorders or infectious disease) (2 sources) Imaging of thorax abnormal; Translations: [Abnormal findings on diagnostic imaging of other specified body structures] 06-22-2024 Chronic Other screening for suspected conditions (not mental disorders or infectious disease) (20 sources) Mammography abnormal; Translations: [Other abnormal and inconclusive findings on diagnostic imaging of breast] Onset: 7 04-28-2023 Episodic Other upper respiratory disease (20 sources) Allergic rhinitis due to pollen; Translations: [Allergic rhinitis due to pollen] Onset: 0 01-28-2023 Chronic Other upper respiratory disease (20 sources) Seasonal allergy; Translations: [Other seasonal allergic rhinitis] Onset: 9 04-28-2023 Chronic Other upper respiratory infections (20 sources) Sinusitis; Translations: [Chronic sinusitis, unspecified] Onset: 9 04-28-2023 Chronic Peripheral and visceral atherosclerosis (20 sources) Intermittent claudication; Translations: [Peripheral vascular disease, unspecified] Onset: 0 04-28-2023 Chronic Residual codes; unclassified (20 sources) Obstructive sleep apnea syndrome; Translations: [Obstructive sleep apnea (adult) (pediatric)] Onset: 8 01-28-2023 Chronic Residual codes; unclassified (2 sources) Tobacco user; Translations: [Tobacco use] 10-16-2023 Episodic Residual codes; unclassified (1 source) Family history of leukemia; Translations: [Family history of leukemia] 04-27-2024 Episodic Residual codes; unclassified (1 source) Family history of breast cancer; Translations: [Family history of malignant neoplasm of breast] 04-27-2024 Episodic Residual codes; unclassified (1 source) Family history of cancer of colon; Translations: [Family history of malignant neoplasm of digestive organs] 04-27-2024 Episodic Residual codes; unclassified (1 source) Family history of leukemia; Translations: [Family history of leukemia] Onset: Episodic Residual codes; unclassified (1 source) Family history of malignant neoplasm of breast; Translations: [Family history of breast cancer] Onset: 4 Episodic Residual codes; unclassified (1 source) Family history of malignant neoplasm of digestive organs; Translations: [Family history of colon cancer] Onset: 4 Episodic Spondylosis; intervertebral disc disorders; other back problems (20 sources) Lumbar spondylosis; Translations: [Other intervertebral disc degeneration, lumbar region] Onset: 2 Resolved: 2 Chronic Substance-related disorders (20 sources) Smoker; Translations: [Nicotine dependence, unspecified, uncomplicated] Onset: 4 02-02-2024 Chronic Unclassified (20 sources) Patient on antidepressant monitoring plan Onset: 3 08-19-2023 Unclassified (20 sources) Baseline PHQ-9 Onset: 3 08-19-2023 Unclassified (1 source) Abdominal aortic aneurysm, without rupture, unspecified; Translations: [Abdominal aortic aneurysm, without rupture, unspecified] Onset: 4 Unclassified (1 source) Low back pain, unspecified; Translations: [Low back pain, unspecified] Onset: 4 Past or Other Problems Problem Classification Problem Date Documented Da te Episodic/Chronic Abdominal pain (20 sources) Unspecified abdominal pain; Translations: [Epigastric pain] Onset: 06-05-2024 Episodic Gastritis and duodenitis (20 sources) Gastritis; Translations: [Gastritis, unspecified, without bleeding] Onset: 01-28-2023 01-28-2023 Episodic Headache; including migraine (20 sources) Headache disorder; Translations: [Other headache syndrome] Onset: 09-03-2021 01-28-2023 Episodic Other and unspecified benign neoplasm (20 sources) History of polyp of colon; Translations: [Personal history of colonic polyps] Onset: 06-05-2024 05-12-2024 Episodic Other connective tissue disease (20 sources) Full thickness rotator cuff tear; Translations: [Complete rotator cuff tear or rupture of left shoulder, not specified as traumatic] Onset: 11-03-2018 01-28-2023 Episodic Other connective tissue disease (20 sources) Recurrent falls ; Translations: [Repeated falls] Onset: 05-14-2021 04-28-2023 Episodic Other connective tissue disease (20 sources) Tear of left rotator cuff; Translations: [Unspecified rotator cuff tear or rupture of left shoulder, not specified as traumatic] Onset: 03-19-2018 04-28-2023 Episodic Other connective tissue disease (19 sources) History of cervical spine fusion; Translations: [Arthrodesis status] Onset: 06-05-2024 04-22-2024 Episodic Other connective tissue disease (18 sources) Myalgia caused by statin; Translations: [Myalgia, unspecified site] Onset: 11-28-2023 11-28-2023 Episodic Other gastrointestinal disorders (20 sources) Constipation; Translations: [Constipation, unspecified] Onset: 01-28-2023 01-28-2023 Episodic Other lower respiratory disease (20 sources) Productive cough ; Translations: [Productive cough] Onset: 05-24-2019 04-28-2023 Episodic Other nervous system disorders (20 sources) Impairment of balance; Translations: [Other abnormalities of gait and mobility] Onset: 05-14-2021 04-28-2023 Episodic Pancreatic disorders (not diabetes) (20 sources) Exocrine pancreatic insufficiency; Translations: [Exocrine pancreatic insufficiency] Onset: 06-05-2024 Episodic Residual codes; unclassified (20 sources) History of hysterectomy for benign disease; Translations: [Acquired absence of both cervix and uterus] Onset: 05-06-2019 01-28-2023 Episodic Spondylosis; intervertebral disc disorders; other back problems (20 sources) Spinal stenosis of lumbar region; Translations: [Spinal stenosis, lumbar region with neurogenic claudication] Onset: 10-15-2021 Resolved: 04-23-2022 01-24-2022 Episodic Unclassified (1 source) Abdominal aortic aneurysm (AAA) 3.0 cm to 5.0 cm in diameter in female I71.40 Viral infection (2 sources) Anal warts; Translations: [Anogenital (venereal) warts] Onset: 01-27-2024 01-20-2024 Episodic Results Test Name Value Interpretation Reference Range Facility BI MAMMOGRAM SCREENING TOMOS YNTHESIS BILATERALon 09-29-2024 BI MAMMOGRAM SCREENING TOMOSYNTHESIS BILATERAL This is a summary report. The complete report is available in the patient's medical record. If you cannot access the medical record, please contact the sending organization for a detailed fax or copy. Examination: BI MAMMOGRAM SCREENING TOMOSYNTHESIS BILATERAL Clinical History: screen Technique: Screening digital mammography study of both breasts was performed with 2-D and 3-D tomosynthesis imaging. Study was compared to the prior exam dated 09/10/2023. Findings: There is no evidence of interval dominant spiculated mass, grouped microcalcifications, or skin thickening which would be suggestive of malignancy. Scattered benign-appearing calcifications are noted bilaterally. Axillary lymph nodes are noted bilaterally. IMPRESSION: Impression: No specific evidence of malignancy seen in either breast. BIRADS 2 - Benign Findings DENSITY: The breasts are heterogeneously dense, which may obscure small masses. FOLLOW-UP: Routine Screening Mammogram ELECTRONICALLY SIGNED BY: Eduardo Castro M.D. Normal Not Available CT CHEST W IV CONTRASTon CT CHEST W IV CONTRAST EXAM: CT Chest with Contrast. REASON FOR EXAM: Right upper chest pain status post falling one month ago. COMPARISON: CTA chest July 09, 2024. TECHNIQUE: Multiplanar images of the chest obtained. 100 mL of Isovue-300 IV administered without reported complication. FINDINGS: The lower neck is without abnormality. No mediastinal adenopathy. Sliver of fluid in the superior pericardial recess versus lymph node present. Previously measuring 1.65 cm in diameter and 22 Hounsfield units. Currently measuring 1.34 cm in diameter and 41 Hounsfield units. Morphologically slightly smaller. Ectasia of the ascending aorta is present, maximum dimension 3.64 cm, unchanged. Heart not enlarged. No pericardial thickening. Likely coronary artery calcifications are present. Images of the upper abdomen are without acute abnormality. Cholecystectomy clips are present. Areas of stranding in the right upper quadrant are noted. This conforms with stool or debris within bowel or colon on the coronal reconstructed images. There is no axillary adenopathy. There is a right anterolateral second rib fracture. Flowing periosteal reaction with healing of the fracture line. Cortical buckle of the anterior right third rib at the costovertebral margin. The lung parenchyma is without abnormality. Metallic fixation of the lower cervical spine and left shoulder are present. IMPRESSION: 1. Essentially healed right anterior second rib fracture from previous CT. 2. New cortical buckle of the anterior third rib near the costochondral junction. Correlate with interval trauma. This was not previously present. 3. Smaller anterior mediastinal fluid collection or lymph node. All CT scans at this institution are performed using dose optimization techniques as appropriate for the performed exam including the following: Automated exposure control Adjustment of the mA and/or kV according to patient size Use of iterative reconstruction technique This report is generated using voice recognition reporting ([employer]). On occasion, [employer] erroneously drops words from the report or replaces the spoken word with a similar sounding word. Please call with any questions/concerns regarding the report. Dictated and transcribed 09/29/2024/tm This report has been electronically signed and approved by the interpreting radiologist. Normal Not Available Comment on above: Order Comment: FELL 1 MONTH AGO, UPPER RT CHEST PAIN XR CHEST 2 VIEWSon 5 SARS-CoV-2 (COVID-19) RNA ARSEN+probe Ql (Unsp spec) Exam: XR CHEST 2 VIEWS Reason for study: COVID since Friday, productive cough Comparison: None FINDINGS: The heart size is normal. No airspace infiltrates or pleural effusions. Reverse arthroplasty of the left shoulder is noted. IMPRESSION: No infiltrates or acute findings. Dictated on: 09/02/2024 8:56 AM This report has been electronically signed and approved by the interpreting Radiologist. Normal Not Available XR Chest 2 Viewson 5 SARS-CoV-2 (COVID-19) RNA ARSEN+probe Ql (Unsp spec) Exam: XR CHEST 2 VIEWS Reason for study: COVID since Friday, productive cough Comparison: None FINDINGS: The heart size is normal. No airspace infiltrates or pleural effusions. Reverse arthroplasty of the left shoulder is noted. IMPRESSION: No infiltrates or acute findings. Dictated on: 09/02/2024 8:56 AM This report has been electronically signed and approved by the interpreting Radiologist. IMAGING Jeremías Geller MD - 09/02/2024 Exam: XR CHEST 2 VIEWS Reason for study: COVID since Friday, productive cough Comparison: None FINDINGS: The heart size is normal. No airspace infiltrates or pleural effusions. Reverse arthroplasty of the left shoulder is noted. IMPRESSION: No infiltrates or acute findings. Dictated on: 09/02/2024 8:56 AM This report has been electronically signed and approved by the interpreting Radiologist. [facility] Radiology Study observation (narrative) [facility] XR Chest 2 ViewsOrdered By: Jeremías Geller on 09-02-2024 [facility] [employer] Work Phone: CT ANGIOGRAM CHESTon [phone] CT ANGIOGRAM CHEST EXAM: CTA of the [address]. REASON FOR EXAM: Right upper chest pain 2 weeks ago. Previous CTA chest February 06, 2023. DISCUSSION: Axial, coronal sagittal images of the chest with MIP reconstructions obtained. 100 cc of Isovue-300 IV without reported complication. The lower neck is without abnormality. No mediastinal fluid collection. A hypodensity of the anterior mediastinum just anterior to the main pulmonary artery present measuring 1.65 cm. 21.56 Hounsfield units. This was previously present and is unchanged. The heart is not enlarged. No pericardial thickening. The RV/LV ratio is less than 1. Multivessel coronary artery calcifications are present. The pulmonary arteries are fairly well opacified. No filling defects, vascular cutoffs or web lesions. Images of the upper abdomen are without acute change. The aorta is notable for diffuse calcified and soft plaque without significant narrowing. No axillary adenopathy. The lungs are without consolidation or mass lesion. Trace bilateral pleural effusions are noted. A small 2 to 3 mm calcified lesion in the left lung base is present. The osseous structures are notable for degenerative changes of the right shoulder. Metallic fixation of the left shoulder. Bony callus formation of the right anterior second rib without fracture lines visualized. Cortical buckle is present. Metallic fixation of the lower cervical spine is present. IMPRESSION: 1. No CT evidence of acute pulmonary emboli. 2. Question subacute right anterior second rib fracture. There is exuberant callus formation more than typically encountered. A pathologic fracture or pathologic bone lesion is not excluded. Follow-up to document benign progression is recommended. 3. Coronary artery disease. Atherosclerosis of the arch. 4. Previous granulomatous exposure. 5. 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 Histology unknown. *This report is generated using voice recognition reporting ([employer]). On occasion [employer] erroneously drops words from the report or replaces the spoken word with similar sounding words. Please call with any questions/concerns regarding this report.* Dictated and transcribed 07/08/24/dpd This report has been electronically signed and approved by the interpreting radiologist. Normal Not Available Comment on above: Order Comment: RT UP PER CHEST PAIN 2 WKS AGO XR RIBS 2 VIEWS RIGHT WITH C HEST ANTEROPOSTERIORon 06-22-2024 XR RIBS 2 VIEWS RIGHT WITH CHEST ANTEROPOSTERIOR EXAM: XR Right Ribs, Five Views. REASON FOR EXAM: Acute right upper anterior chest/rib pain for one day, no known injury. COMPARISON: Chest x-ray May 27, 2022. FINDINGS: Five images. The cardiac silhouette is not enlarged. The mediastinum is slightly prominent. There is no pleural effusion, focal lung opacity or pneumothorax. Metallic fixation of the lower cervical spine noted. Humeral prosthesis on the left incompletely visualized. The rib detail demonstrates no pleural widening, sclerotic or lytic bone lesions or displaced rib fractures. Chronic right lateral seventh rib fracture with callus formation noted. Metallic fixation of the lumbar spine and cholecystectomy clips incidentally noted. IMPRESSION: 1. No evidence of acute rib fracture radiographically. 2. Chronic right lateral rib fracture as detailed above. 3. There is slight prominence of the mediastinum which can be accentuated by positioning and a diminished inspiratory effort. Mediastinal pathology not excluded. Recommend CTA of the chest for further evaluation. *This report is generated using voice recognition reporting ([employer]). On occasion [employer] erroneously drops words from the report or replaces the spoken word with similar sounding words. Please call with any questions/concerns regarding this report.* Dictated and transcribed 06/22/24/dpd This report has been electronically signed and approved by the interpreting radiologist. Electronically Signed Jerson Day II, M.D. 2024-06-22 10:43:15 Normal Not Available XR Ribs Views and Chest PAon 06-22-2024 EXAM: XR Right Ribs, Five Views. REASON FOR EXAM: Acute right upper anterior chest/rib pain for one day, no known injury. COMPARISON: Chest x-ray May 27, 2022. FINDINGS: Five images. The cardiac silhouette is not enlarged. The mediastinum is slightly prominent. There is no pleural effusion, focal lung opacity or pneumothorax. Metallic fixation of the lower cervical spine noted. Humeral prosthesis on the left incompletely visualized. The rib detail demonstrates no pleural widening, sclerotic or lytic bone lesions or displaced rib fractures. Chronic right lateral seventh rib fracture with callus formation noted. Metallic fixation of the lumbar spine and cholecystectomy clips incidentally noted. IMPRESSION: 1. No evidence of acute rib fracture radiographically. 2. Chronic right lateral rib fracture as detailed above. 3. There is slight prominence of the mediastinum which can be accentuated by positioning and a diminished inspiratory effort. Mediastinal pathology not excluded. Recommend CTA of the chest for further evaluation. *This report is generated using voice recognition reporting ([employer]). On occasion [employer] erroneously drops words from the report or replaces the spoken word with similar sounding words. Please call with any questions/concerns regarding this report.* Dictated and transcribed 06/22/24/dpd This report has been electronically signed and approved by the interpreting radiologist. Electronically Signed Jerson Day II, M.D. 2024-06-22 10:43:15 IMAGING Jerson Day MD - 06/22/2024 EXAM: XR Right Ribs, Five Views. REASON FOR EXAM: Acute right upper anterior chest/rib pain for one day, no known injury. COMPARISON: Chest x-ray May 27, 2022. FINDINGS: Five images. The cardiac silhouette is not enlarged. The mediastinum is slightly prominent. There is no pleural effusion, focal lung opacity or pneumothorax. Metallic fixation of the lower cervical spine noted. Humeral prosthesis on the left incompletely visualized. The rib detail demonstrates no pleural widening, sclerotic or lytic bone lesions or displaced rib fractures. Chronic right lateral seventh rib fracture with callus formation noted. Metallic fixation of the lumbar spine and cholecystectomy clips incidentally noted. IMPRESSION: 1. No evidence of acute rib fracture radiographically. 2. Chronic right lateral rib fracture as detailed above. 3. There is slight prominence of the mediastinum which can be accentuated by positioning and a diminished inspiratory effort. Mediastinal pathology not excluded. Recommend CTA of the chest for further evaluation. *This report is generated using voice recognition reporting ([employer]). On occasion PowerScribe erroneously drops words from the report or replaces the spoken word with similar sounding words. Please call with any questions/concerns regarding this report.* Dictated and transcribed 06/22/24/dpd This report has been electronically signed and approved by the interpreting radiologist. Electronically Signed Jerson Day II, M.D. 2024-06-22 10:43:15 [facility] Radiology Study observation (narrative) [facility] XR Ribs Views and Chest PAOr dered By: Jerson Day on 06-22-2024 [facility] Work Phone: US aortaon 06-07-2024 US aorta [facility] [place] [address] [place] [id number] Ultrasound Report Signed Patient: Debra Delarosa MR#: [id number] : 1955 Acct:[id number] Age/Sex: 68 / F ADM Date: 06/07/24 Loc: Room: Type: [facility] Attending Dr: Bharat Valdivia MD Ordering Provider: Bharat Valdivia MD Date of Service: 06/07/24 US/US aorta: Abdominal aortic aneurysm (AAA) 3.0 cm to 5.0 cm in diameter Copies to: Bharat Valdivia MD Aortic ultrasound Reason for exam: Follow-up aneurysm Comparison: Aortic ultrasound 07/02/2023 Technique: Grayscale, spectral and color Doppler images of the abdominal aorta were obtained. Findings: Stable aneurysmal dilatation of the distal abdominal aorta measuring 3.1 cm. There appears to be associated atherosclerotic calcification. Visualized common iliac arteries appear normal in caliber. US/US aorta Impression: Stable aneurysmal dilatation of the abdominal aorta measuring 3.1 cm. Impression dictated by: Josue Hickman Jr., DPatrickOPatrick06/07/2024 10:08 AM Dictation Location: [place] [address] Tech: Nunu Adorno Transcribed By: [facility] 06/07/24 1008 Dictated By: Josue Hickman Jr DO 06/07/24 1007 Signed By: 06/07/24 1008 Normal [facility] No Panel InformationOrdered By: Temi Fajardo on 06-02-2024 Miscellaneous Pathology Test See comment [facility] Comment on above: See report. Scanned copy available in EMR. Pathology Request for Lab Co rpon 06-02-2024 Pathology Request for Lab Jass Normal [facility] Comment on above: Order Comment: PATHO LOGY GI SPECIMEN Result Comment: See report. Scanned copy available in EMR. PERFORMED BY: [place] [address] PATHOLOGIST PHOTOLITHOGRAPHER MIKE MELVIN M.D. Performed By: #### P ATH TO [facility] #### [facility] [address] [id number] [facility] Lore 05-17-2024 CNPN Telephone ([facility]) -------- DEBRA DELAROSA Seda ([id number]) 1955 F Date Time Provider Department 05/17/24 TRACIE JOHNSON [facility] During your visit today, we recorded the following information about you: Margy Lobo 05/17/2024 10:58 AM Signed Patient calling to discuss genetic testing results. # [phone] Ramone Killian RN 05/17/2024 11:14 AM Signed Returned call. No answer. Left voice message informing her that she should reach out to her genetic counselor with any questions regarding her genetic tests and the results. If she has any questions about her surgery, she can give our office a call back. Allergies As of Date: 05/17/2024 Noted Allergy Reaction MORPHINE 09/08/2007 Date Reviewed: 02/13/2024 Reviewed by: Michelle Esposito, RN - Fully Assessed Reason for Visit: Results [95] Prescriptions as of 05/17/2024 - lipase/protease/amylase (ZENPEP ORAL) Take by mouth. 40,000 international unit(s) 2 capsules with meals daily and 1 capsule with snacks. - linaCLOtide (LINZESS) 290 mcg capsule Take by mouth daily at 6 am. - hydroCHLOROthiazide 25 mg tablet Take 25 mg by mouth once daily. - DULoxetine (CYMBALTA) 60 mg capsule Take 60 mg by mouth once daily. - Lactobacillus acidophilus (PROBIOTIC ACIDOPHILUS ORAL) Take by mouth once daily. - oxjcmhxsoby-pyfdymhix-yz lanter (TRELEGY ELLIPTA) 200-62.5-25 mcg inhalation powder Inhale 1 Puff as instructed once daily. - Cholecalciferol, Vitamin D3, (VITAMIN D-3) 50 mcg (2,000 unit) cap Take by mouth once daily. - omega-3 DHA-EPA (FISH OIL) 1,200 (144-216) mg capsule Take 1 capsule by mouth daily with breakfast. - calcium carbonate (CALCIUM 300 ORAL) Take by mouth once daily. - omeprazole (PRILOSEC) 40 mg capsule Take 40 mg by mouth once daily. Problem List As Of Date 05/17/2024 Noted Resolved Unspecified Senile Cataract [H25.9] 05/02/2010 Smoker [F17.200] 02/02/2024 COPD (chronic obstructive pulmonary disease) (H*02/02/2024 GERD (gastroesophageal reflux disease) [K21.9] 02/02/2024 Primary hypertension [I10] 02/02/2024 Obstructive sleep apnea syndrome [G47.33] 02/02/2024 Encounter Status:Closed by RAMONE KILLIAN on 05/17/24 Normal [facility] CNPN Telephone ([facility]) -------- DEBRA DELAROSA ([id number]) 1955 F Date Time Provider Department 05/17/24 RUSSELL WALKER During your visit today, we recorded the following information about you: Russell Walker MS 05/17/2024 12:04 PM Signed Results left on patient voicemail. Debra Delarosa's Custom Multi-Cancer Panel and Hereditary Myelodysplastic Syndrome/Leukemia Panel with preliminary evidence genes through [employer] was negative for a pathogenic variant. Please see WorkMeIn message for further discussion. Russell Walker, Licensed, Certified Genetic Counselor Allergies As of Date: 05/17/2024 Noted Allergy Reaction MORPHINE 09/08/2007 Date Reviewed: 02/13/2024 Reviewed by: Michelle Esposito RN - Fully Assessed Reason for Visit: Results [95] Cmt: Negative genetic test results Prescriptions as of 05/17/2024 - lipase/protease/amylase (ZENPEP ORAL) Take by mouth. 40,000 international unit(s) 2 capsules with meals daily and 1 capsule with snacks. - linaCLOtide (LINZESS) 290 mcg capsule Take by mouth daily at 6 am. - hydroCHLOROthiazide 25 mg tablet Take 25 mg by mouth once daily. - DULoxetine (CYMBALTA) 60 mg capsule Take 60 mg by mouth once daily. - Lactobacillus acidophilus (PROBIOTIC ACIDOPHILUS ORAL) Take by mouth once daily. - aastjrzvepz-bijomlyxe-bk lanter (TRELEGY ELLIPTA) 200-62.5-25 mcg inhalation powder Inhale 1 Puff as instructed once daily. - Cholecalciferol, Vitamin D3, (VITAMIN D-3) 50 mcg (2,000 unit) cap Take by mouth once daily. - omega-3 DHA-EPA (FISH OIL) 1,200 (144-216) mg capsule Take 1 capsule by mouth daily with breakfast. - calcium carbonate (CALCIUM 300 ORAL) Take by mouth once daily. - omeprazole (PRILOSEC) 40 mg capsule Take 40 mg by mouth once daily. Problem List As Of Date 05/17/2024 Noted Resolved Unspecified Senile Cataract [H25.9] 05/02/2010 Smoker [F17.200] 02/02/2024 COPD (chronic obstructive pulmonary disease) (H*02/02/2024 GERD (gastroesophageal reflux disease) [K21.9] 02/02/2024 Primary hypertension [I10] 02/02/2024 Obstructive sleep apnea syndrome [G47.33] 02/02/2024 Encounter Status:Closed by RUSSELL WALKER on 05/17/24 [facility] Telephone ([place]) -------- DEBRA DELAROSA ([id number]) 1955 F Date Time Provider Department 05/17/24 THANIA WELLS During your visit today, we recorded the following information about you: Angie Steiner 05/17/2024 11:30 AM Signed Received a call from PT looking for results of her genetic testing. Answered PT question that I cannot see if her results are back in the portal yet, but I will ask her GC Thania Wells to follow up as soon as she can. Explained that Thania will be out of office until later this week, so PT can expect a call later this week or early next week. PT expressed understanding and stated this is okay, she is just a bit anxious to know her results. Empathized with PT and let her know we will be in touch as soon as possible. PT had no further questions at this time. Angie Steiner Genetic Counseling Ride Attendant Allergies As of Date: 05/17/2024 Noted Allergy Reaction MORPHINE 09/08/2007 Date Reviewed: 02/13/2024 Reviewed by: Michelle Esposito RN - Fully Assessed Reason for Visit: Patient Question [0455] Cmt: Results Prescriptions as of 05/17/2024 - lipase/protease/amylase (ZENPEP ORAL) Take by mouth. 40,000 international unit(s) 2 capsules with meals daily and 1 capsule with snacks. - linaCLOtide (LINZESS) 290 mcg capsule Take by mouth daily at 6 am. - hydroCHLOROthiazide 25 mg tablet Take 25 mg by mouth once daily. - DULoxetine (CYMBALTA) 60 mg capsule Take 60 mg by mouth once daily. - Lactobacillus acidophilus (PROBIOTIC ACIDOPHILUS ORAL) Take by mouth once daily. - tstseusmxln-imjrwxgdb-qt lanter (TRELEGY ELLIPTA) 200-62.5-25 mcg inhalation powder Inhale 1 Puff as instructed once daily. - Cholecalciferol, Vitamin D3, (VITAMIN D-3) 50 mcg (2,000 unit) cap Take by mouth once daily. - omega-3 DHA-EPA (FISH OIL) 1,200 (144-216) mg capsule Take 1 capsule by mouth daily with breakfast. - calcium carbonate (CALCIUM 300 ORAL) Take by mouth once daily. - omeprazole (PRILOSEC) 40 mg capsule Take 40 mg by mouth once daily. Problem List As Of Date 05/17/2024 Noted Resolved Unspecified Senile Cataract [H25.9] 05/02/2010 Smoker [F17.200] 02/02/2024 COPD (chronic obstructive pulmonary disease) (H*02/02/2024 GERD (gastroesophageal reflux disease) [K21.9] 02/02/2024 Primary hypertension [I10] 02/02/2024 Obstructive sleep apnea syndrome [G47.33] 02/02/2024 Encounter Status:Closed by ANGIE STEINER on 05/17/24 Normal [facility] MISC SEND OUT TST 2023 [facility] TEST 1 Custom Multi-Cancer panel and Hereditary Myelodysplastic Syndrome/Leukemia Panel plus preliminary evidence genes [facility]CF TEST RESULTS 1 View results in Scan chris Documents link when available [facility] Healthcare Specimen Type: BLOOD SPECIMEN Ordering Facility: [facility] Address: [address] [place] [address] Original Ordering Provider: [facility] M[facility] SCAN TEST RESULTS 1 View results in Scanned Documents link when available Normal [facility] Comment on above: Order Comment: Speci men Type: BLOOD SPECIMEN Ordering Facility: [facility] Address: [address] [place] [address] Performed By: #### M ISC1 #### [facility] CLIA [id number] [address] [place] [address] [place] NON-INTERFACED REF LABS CLIA SEE SCANNED RESULTS REFERRAL LAB 1 (DROP-DOWN) [facility] Normal [facility] Comment on above: Order Comment: Speci men Type: BLOOD SPECIMEN Ordering Facility: [facility] Address: [address] [place] [address] Performed By: #### M ISC1 #### [facility] CLIA [id number] [address] [place] [address] [place] NON-INTERFACED REF LABS CLIA SEE SCANNED RESULTS TEST 1 Custom Multi-Cancer panel and Hereditary Myelodysplastic Syndrome/Leukemia Panel plus preliminary evidence genes Normal [facility] Comment on above: Order Comment: Speci men Type: BLOOD SPECIMEN Ordering Facility: [facility] Address: [address] [place] [id number] Performed By: #### M ISC1 #### [facility] CLIA [id number] [address] [facility] [address] [id number] [id number] [place] NON-INTERFACED REF LABS CLIA SEE SCANNED RESULTS MR cervical spine wo conon 0 03-25-2024 MR cervical spine wo con [facility] [place] [address] [place] [address] MRI Report Signed Patient: Debra Delarosa MR#: [id number] : 1955 Acct:[id number] Age/Sex: 68 / F ADM Date: 03/25/24 Loc: [facility]: [facility] Dr: Anisa Horowitz APRN Copies to: Anisa Horowitz APRN Ordering Provider: Anisa Horowitz APRN Date of Service: 03/25/24 MR/MR cervical spine wo con: G95.9 - Disease of spinal cord, unspecified MR cervical spine wo con 03/25/2024 8:01 AM SIGNS AND SYMPTOMS: Right-sided posterior neck pain PROTOCOL: Multiplanar multisequence MR images of the cervical spine were obtained without IV contrast COMPARISON: 02/06/2017 FINDINGS: The bones of the cervical spine are in anatomic alignment. There is preservation of vertebral body heights. Intervertebral disc fusion is noted at C5-C6. There is anterior and intervertebral fusion at C7-T1. There is moderate disc height loss at C6-C7 with severe disc height loss at T1-T2. Modic type I endplate edema is noted at T3-T4. There is posterior decompression from C4 through C6. T2 and T2 STIR hyperintense signal is noted in the cervical cord with cord atrophy at C6-C7 and T2-T3 consistent with chronic myelomalacia. No epidural or paraspinous fluid collection is appreciated. The visualized paraspinous soft tissues are within normal limits. The prevertebral soft tissues are within normal limits. At C2-C3: There is uncovertebral joint spurring and facet hypertrophy. There is moderate bilateral neural foraminal narrowing with mild spinal canal stenosis. This is slightly worse when compared to the prior exam. At C3-C4: There is a broad-based disc bulge without joint spurring and facet hypertrophy. There is mild left and moderate to severe right neural foraminal narrowing, similar to the prior exam. There is mild spinal canal stenosis which is unchanged. At C4-C5: There is a broad-based disc bulge with facet and into degenerative change contributing to mild bilateral neural foraminal narrowing and mild spinal canal narrowing. This is similar to the prior exam. At C5-C6: There is intervertebral fusion with uncovertebral joint spurring and facet hypertrophy contributing to moderate left and severe right neural foraminal narrowing with mild spinal canal narrowing. This is similar to the prior exam. At C6-C7: There is a broad-based disc bulge with uncovertebral joint spurring. There is moderate to severe bilateral neural foraminal narrowing with mild spinal canal narrowing. This is similar to the prior exam. At C7-T1: There is a broad-based disc bulge with facet and operative injection change. There is moderate to severe spinal canal narrowing with moderate to severe bilateral neural foraminal narrowing. Spinal canal narrowing has improved slightly with interval intervertebral disc and anterior fusion hardware placement. MR/MR cervical spine wo con IMPRESSION: Chronic myelomalacia is noted in the cervical cord at C6-C7 and T2-3. Postoperative changes are noted as described above with new intervertebral fusion and anterior fusion hardware placement at C7-T1. Similar significant degrees of spinal canal and neural foraminal narrowing are noted throughout the cervical spine showing only improvement in spinal canal stenosis at C7-T1. Impression dictated by: Julian Guerrero M.D.03/25/2024 1:39 PM Dictation Location: [place] [address] Transcribed By: [facility] 03/25/24 1339 Dictated By: Julian Guerrero II, MD 03/25/24 1225 Signed By: 03/25/24 1339 Normal [facility] ADT Notificationon ADT Notification - From: Savanah Macias (Therapy Registrar ([facility])) To: Centralized Scheduling Pool ([facility]); Sent: 02/24/2024 10:22:12 EDT Subject: ADT Notification Caller Name: DEBRA DELAROSA; Caller Number: Elvis , M RE: Debra Delarosa This patient was originally scheduled for January 22, 2024. She did not keep appointment. Can you please D/C this Pre Admit FIN if appropriate. Thank you, Savanah Stack D/C [facility] ANES POSTPROC EVALon 024 ANES POSTPROC EVAL HNO ID: [id number] Author: KIET LE MD Service: Anesthesiology Author Type: Anesthesiologist Type: Anesthesia Postprocedure Evaluation Filed: 02/13/2024 14:36 Note Text: POST ANESTHESIA EVALUATION NOTE : 1955 Procedure Summary Date: 02/13/24 Room / Location: [address] Anesthesia Start: 1353 Anesthesia Stop: 1425 Procedures: EXAM UNDER ANESTHESIA RECTAL (Anus) SURGICAL EXCISION LESION ANAL (Anus) Diagnosis: Anal lesion (Anal lesion [K62.9]) Surgeons: Tracie Johnson MD Responsible Provider: Kiet Le MD Anesthesia Type: MAC ASA Status: 3 Anesthesia Type: MAC Last Vitals Vitals Value Taken Time BP 139/69 02/13/24 1422 Temp 36.9 ?C (98.4 ?F) 02/13/24 1422 Pulse 02/13/24 1435 Resp 16 02/13/24 1422 SpO2 98 % 02/13/24 1422 Post Anesthesia Patient Status Patient Evaluation: PACU. PACU/ICU Patient Condition: stable. Anticipated Disposition: phase 2 then home. Neurological Status: aware and responsive. Pulmonary Status: breathing comfortably on room air Airway Control: returned to baseline unsupported. Cardiovascular Status: stable. Pain Management: clinically adequate Postoperative Hydration: acceptable. Intraoperative Events: no significant anesthesia events Post Operative Nausea/Vomiting Status: no significant post operative nausea or vomiting Recommendation: continue current plan of care. Anesthesia Observations No Documentation SIGNATURE: Kiet Le MD PATIENT NAME: Debra Delarosa DATE: February 13, 2024 TIME: 2:35 PM CSN: [id number] [facility] ANES PRE-OPon 02-13-2024 ANES PRE-OP HNO ID: [id number] Author: KIET LE MD Service: Anesthesiology Author Type: Anesthesiologist Type: Anesthesia Preprocedure Evaluation Filed: 02/13/2024 12:23 Note Text: ANESTHESIOLOGY DAY OF SURGERY NOTE : 1955 Procedure Information Date/Time: 02/13/24 1245 Procedures: EXAM UNDER ANESTHESIA RECTAL (Anus) SURGICAL EXCISION LESION ANAL (Anus) Location: [facility] Surgeons: Tracie Johnson MD Estimated body mass index is 24.13 kg/m? as calculated from the following: Height as of this encounter: 165.1 cm (5' 5 ). Weight as of this encounter: 65.8 kg (145 lb). Most recent hematocrit and potassium results: Hematocrit 43.3 02/02/2024 Potassium 4.1 02/02/2024 Relevant Problems ANESTHESIA (+) Obstructive sleep apnea syndrome CARDIO (+) Primary hypertension GI (+) GERD (gastroesophageal reflux disease) PULMONARY (+) COPD (chronic obstructive pulmonary disease) (HCC) (+) Obstructive sleep apnea syndrome I - PHYSICAL EVALUATION AIRWAY Patient intubated: No. Tracheostomy tube not present Mallampati: II. TM distance: >3 FB. Neck ROM: full ROM without neurological symptoms. Mouth opening: adequate. Short neck: no. Thick neck: no DENTAL Dental findings: teeth intact. Dentures, upper: complete. Additional exam findings: yes. CARDIOVASCULAR Rate: normal PULMONARY Breath sounds clear to auscultation. II - ANESTHESIA PLAN ASA Score: 3 Anesthetic Plan: MAC The patient is a current smoker. NPO Status: adequate Beta Yara Monitoring Plan Monitoring plan: standard ASA. Post Procedure Analgesic Plan Postoperative analgesic plan: multimodal analgesia. Informed Consent Anesthetic risks, benefits, alternatives, personnel and consent discussed: yes. Patient / Responsible Green Party agrees to proceed: yes Patient / Surrogate agrees to blood products: blood products not planned DNR status not reviewed with patient and/or family prior to surgery. Significant changes in the patient condition since the History and Physical, not otherwise documented in primary service progress note: no. Potential Anesthesia issues that may suggest increased risk of complications or contraindication to planned procedure: none. Vitals Value Taken Time BP 138/82 02/13/24 1215 Pulse 56 02/13/24 1215 Resp 18 02/13/24 1215 Temp 36.6 ?C (97.9 ?F) 02/13/24 1215 SpO2 99 % 02/13/24 1215 Facility-Administered Medications as of 02/13/2024 Medication Dose Route Frequency lidocaine (PF) 10 mg/mL (1 %) 1-2 mg injection (XYLOCAINE) 0.1-0.2 mL INTRADERMAL PRN lactated ringers iv infusion 5-30 mL/hr INTRAVENOUS CONTINUOUS NaCl 0.9% iv flush bag 20 mL INTRAVENOUS PRN acetaminophen 1,000 mg tab(s) (TYLENOL) 1,000 mg ORAL ONCE promethazine 12.5 mg tab(s) (PHENERGAN) 12.5 mg ORAL NOW lactated ringers iv infusion 30 mL/hr INTRAVENOUS CONTINUOUS No current outpatient medications on file as of 02/13/2024. I have interviewed and examined the patient. I have reviewed the medical record and/or the pre-anesthesia evaluation, pertinent labs, and test results. This contains updated information obtained within 48 hours of Surgery/Procedure. SIGNATURE: Kiet Le MD PATIENT NAME: Debra Delarosa DATE: February 13, 2024 TIME: 12:23 PM CSN: [id number] [facility] BRIEF OP NOTon 02-13-2024 BRIEF OP NOT HNO ID: [id number] Author: ERICKA OTTO MD Service: Colorectal Author Type: Fellow Type: Brief Op Note Filed: 02/13/2024 14:23 Note Text: BRIEF OPERATIVE NOTE - COLORECTAL SURGERY Log ID: [id number] Surgery/Procedure Date: 02/13/2024 Incision/Procedure Start Time: 2:07 PM Incision Close/Procedure End Time: 2:16 PM Surgeon(s) and Ride Attendant(s): Surgeon(s) and Role: * Tracie Johnson MD - Primary * Ericka Otto MD - Fellow No Additional Staff Procedures and Anesthesia: Procedure(s) and Anesthesia Type: * EXAM UNDER ANESTHESIA RECTAL - Monitored Anesthesia Care * SURGICAL EXCISION LESION ANAL - Monitored Anesthesia Care Stoma Type: N/A Findings: R lateral, L lateral, and posterior midline lesions excised. No acetyl acid changes otherwise Estimated Blood Loss: Minimal Specimens: Lesions as above Diagnosis Code(s): Pre-Op Diagnosis Codes: * Anal lesion [K62.9] Postop Diagnosis: Same Drains: None Wound Classification: Class 3, operative wound contaminated with anorectal wound Complications: None SIGNATURE: Ericka Otto MD PATIENT NAME: Debra Delarosa DATE: February 13, 2024 TIME: 2:22 PM Normal [facility] OPERATIVE NOon 02-13-2024 OPERATIVE NO HNO ID: [id number] Author: TRACIE JOHNSON MD Service: Colorectal Author Type: Physician Type: Operative Report Filed: 02/13/2024 14:23 Note Text: COLON AND RECTAL SURGERY OPERATIVE REPORT PATIENT NAME: Debra Delarosa ADMISSION DATE: 02/13/2024 LOG ID: [id number] SURGERY/PROCEDURE DATE: 02/13/2024 INCISION/PROCEDURE START TIME: 2:07 PM INCISION CLOSE/PROCEDURE END TIME: 2:16 PM AGE: [age] year old SEX: female SURGEON(S)/PROCEDURALIST (S) AND NETBACKUP ENGINEER(S): Surgeon(s) and Role: * Tracie Johnson MD - Primary * Ericka Otto MD - Fellow No Additional Staff ANESTHESIA: Monitored Anesthesia Care PREOPERATIVE DIAGNOSIS (ES): Anorectal LSIL POSTOPERATIVE DIAGNOSIS (ES): Anorectal LSIL NAME OF OPERATION: Exam under anesthesia, biopsy and fulguration of anorectal lesions INDICATIONS FOR PROCEDURE: Anorectal LSIL OPERATIVE FINDINGS: Normal anoderm. 3 mm right lateral rectal lesion 1 cm proximal to dentate line. Excisional biopsy with cautery performed. Left lateral 2 mm rectal lesion within 1 cm of dentate line. Excisional biopsy with cautery performed. Posterior midline rectal lesions x 3 within 1 cm of dentate line from 1-3 mm. Excisional biopsy with cautery performed of largest lesion, remaining lesions fulgurated. Acetic acid applied to rectal mucosa and anal canal, no additional lesions visualized. Acetic acid applied to anoderm, no additional lesions visualized. Normal external and internal hemorrhoids. DESCRIPTION OF PROCEDURE: The patient was brought to the operating room, placed under MAC anesthesia in the prone brooklynn-knife position. A surgical time-out was performed. The perineum was prepped and draped in normal sterile fashion and anesthetized with 40 mL of Exparel/0.5% Marcaine. A detailed digital rectal exam and anoscopy was performed which revealed: Normal anoderm. 3 mm right lateral rectal lesion 1 cm proximal to dentate line. Excisional biopsy with cautery performed. Left lateral 2 mm rectal lesion within 1 cm of dentate line. Excisional biopsy with cautery performed. Posterior midline rectal lesions x 3 within 1 cm of dentate line from 1-3 mm. Excisional biopsy with cautery performed of largest lesion, remaining lesions fulgurated. Acetic acid applied to rectal mucosa and anal canal, no additional lesions visualized. Acetic acid applied to anoderm, no additional lesions visualized. Normal external and internal hemorrhoids. ESTIMATED BLOOD LOSS: 1 mL SPECIMENS: Right lateral rectal lesion, left lateral rectal lesion, posterior midline rectal lesion DRAINS: None COMPLICATIONS: None INTRAOPERATIVE FLUIDS: See anesthesia record. SPONGE/INSTRUMENT/NEEDLE COUNTS: Correct x2. PRESENCE STATEMENT: I was present for the entire procedure as I have dictated above. Tracie Johnson M.D. Department of Surgery Division of Colon and Rectal Surgery [facility] SURGICAL PATHOLOGYon 024 CASE REPORT [facility] Comment on above: Order Comment: Speci men Type: TISSUE SPECIMEN Ordering Facility: [facility] Address: [address] [place] [address] Result Comment: Surg ical Pathology Report Case: [id number] Authorizing Provider: Tracie Johnson MD Collected: 02/13/2024 02:13 PM Ordering Location: [facility] Received: 02/13/2024 10:11 PM [facility] Center Pathologist: Sarina Carl MD Specimens: A) - Skin Lesion/Soft Tissue Ulcer (Specify site in comment), right lateral rectal lesion B) - Skin Lesion/Soft Tissue Ulcer (Specify site in comment), left lateral rectal lesion C) - Skin Lesion/Soft Tissue Ulcer (Specify site in comment), posterior midline rectal lesion Performed By: #### S #### [facility] CLIA [id number] [place] [address] [place] [facility] CLIA [id number] [address] [place], [place] [address] [place] [address] [place] CLINICAL HISTORY [facility] Comment on above: Order Comment: Speci men Type: TISSUE SPECIMEN Ordering Facility: [facility] Address: [address] [place] [address] Result Comment: Pre- op diagnosis: Anal lesion [K62.9] Performed By: #### S #### [facility] CLIA [id number] [place] [address] [place] [facility] CLIA [id number] [address] [place] [address] [place] FINAL DIAGNOSIS [facility] Comment on above: Order Comment: Speci men Type: TISSUE SPECIMEN Ordering Facility: [facility] Address: [address] [place] [address] Result Comment: A. S kin lesion/soft tissue ulcer, biopsy: - Hyperplastic polyp. B. Skin lesion/soft tissue ulcer, biopsy: - Colonic mucosa with hyperplastic changes. C. Skin lesion/soft tissue ulcer, biopsy: - Colonic mucosa with hyperplastic changes. Performed By: #### S #### [facility] CLIA [id number] [place] [address] [place] [facility] CLIA [id number] [address] [place] [address] [place] FINAL PERFORMING LAB Normal [facility] Comment on above: Order Comment: Speci men Type: TISSUE SPECIMEN Ordering Facility: [facility] Address: [address] [place] [address] Result Comment: Diag nostic interpretation performed at [facility], [place] [address] CLIA# [id number] Processing Assistant: Sarina Carl M.D. Performed By: #### S #### [facility] CLIA [id number] [place] [address] [place] [facility] CLIA [id number] [address] [place] [address] [place] GROSS DESCRIPTION Normal [facility] Comment on above: Order Comment: Speci men Type: TISSUE SPECIMEN Ordering Facility: [facility] Address: [address] [place] [address] Result Comment: A. S kin Lesion/Soft Tissue Ulcer (Specify site in comment) Received in formalin labeled right lateral rectal lesion is a segment of grigsby-pink mucosal covered soft tissue measuring 0.7 x 0.6 x 0.6 cm. The mucosal surface demonstrates an elevated nodule measuring 0.3 x 0.3 x 0.2 cm. The specimen is bisected and totally submitted in formalin in cassette A1. B. Skin Lesion/Soft Tissue Ulcer (Specify site in comment) Received in formalin labeled left lateral rectal lesion is a segment of grigsby-brown mucosal covered soft tissue measuring 0.7 x 0.4 x 0.4 cm. The mucosa demonstrates an elevated nodule measuring 0.3 x 0.3 x 0.2 cm. The specimen is bisected and totally submitted in formalin in cassette B1. C. Skin Lesion/Soft Tissue Ulcer (Specify site in comment) Received in formalin labeled posterior midline rectal lesion is a segment of grigsby-brown mucosal covered soft tissue measuring 0.5 x 0.2 x 0.2 cm. The mucosa is unremarkable. Totally submitted in formalin in cassette C1. Gross examination performed at [facility], [address] [place] [address] CLIA# [id number] [facility] 02/14/24 6:36 AM Performed By: #### S #### [facility] CLIA [id number] [address] [place] [address] [place] [facility] CLIA [id number] [address] [place] [address] [place] Basic metabolic 2000 panelon 02-02-2024 Anion gap [Moles/Vol] 11 mmol/L Normal 8-15 [facility] Comment on above: Order Comment: Speci men Type: BLOOD SPECIMEN Ordering Facility: [facility] Address: [address] [place] [address] Performed By: #### 2 4321-2 #### [facility] CLIA [id number] [address] [place] [address] [place] Calcium [Mass/Vol] 9.5 mg/dL Normal 8.5-10.2 [facility] Comment on above: Order Comment: Speci men Type: BLOOD SPECIMEN Ordering Facility: [facility] Address: [address] [place] [address] Performed By: #### 2 4321-2 #### [facility] CLIA [id number] [address] [place] [address] [place] Chloride [Moles/Vol] 102 mmol/L Normal 98-107 [facility] Comment on above: Order Comment: Speci men Type: BLOOD SPECIMEN Ordering Facility: [facility] Address: [address] [place] [address] Performed By: #### 2 4321-2 #### [facility] CLIA [id number] [address] [place] [address] [place] CO2 [Moles/Vol] 29 mmol/L Normal 22-30 [facility] Comment on above: Order Comment: Speci men Type: BLOOD SPECIMEN Ordering Facility: [facility] Address: [address] [place] [address] Performed By: #### 2 4321-2 #### [facility] CLIA [id number] [address] [place] [address] [place] Creatinine [Mass/Vol] 0.56 mg/dL Low 0.58-0.96 [facility] Comment on above: Order Comment: Speci men Type: BLOOD SPECIMEN Ordering Facility: [facility] Address: [address] [place] [address] Performed By: #### 2 4321-2 #### [facility] CLIA [id number] [address] [place] [address] [place] Creatinine and Glomerular filtration rate.predicted panel (S/P/Bld) 99 mL/min/1.73m??? Normal >=60 [facility] Comment on above: Order Comment: Speci men Type: BLOOD SPECIMEN Ordering Facility: [facility] Address: [address] [place] [address] Result Comment: Tayla mated Glomerular Filtration Rate (eGFR) is calculated using the 2020 CKD-EPI creatinine equation. This equation utilizes serum creatinine, sex, and age as parameters. The creatinine assay has traceable calibration to isotope dilution-mass spectrometry. Refer to KDIGO guidelines for clinical interpretation. In patients with unstable renal function, e.g. those with acute kidney injury, the eGFR may not accurately reflect actual GFR. Performed By: #### 2 4321-2 #### [facility] CLIA [id number] [address] [place] [address] [place] Glucose [Mass/Vol] 75 mg/dL Normal 74-99 [facility] Comment on above: Order Comment: Rose walker Type: BLOOD SPECIMEN Ordering Facility: [facility] Address: [address] [place] [address] Result Comment: The [place] Diabetes Association (ADA) provides guidance for cutoff values for fasting glucose and random glucose. The ADA defines fasting as no caloric intake for at least 8 hours. Fasting plasma glucose results between 100 to 125 mg/dL indicate increased risk for diabetes (prediabetes). Fasting plasma glucose results greater than or equal to 126 mg/dL meet the criteria for diagnosis of diabetes. In the absence of unequivocal hyperglycemia, results should be confirmed by repeat testing. In a patient with classic symptoms of hyperglycemia or hyperglycemic crisis, random plasma glucose results greater than or equal to 200 mg/dL meet the criteria for diagnosis of diabetes. Reference: Standards of Medical Care in Diabetes 2016, [place] Diabetes Association. Diabetes Care. 2016.39(Suppl 1). Performed By: #### 2 4321-2 #### [facility] CLIA [id number] [address] [place] [address] [place] Potassium [Moles/Vol] 4.1 mmol/L Normal 3.7-5.1 [facility] Comment on above: Order Comment: Rose walker Type: BLOOD SPECIMEN Ordering Facility: [facility] Address: [address] [place], [place] [id number] Performed By: #### 2 4321-2 #### [facility] CLIA [id number] [address] [place] [address] [place] Sodium [Moles/Vol] 142 mmol/L Normal 136-144 [facility] Comment on above: Order Comment: Rose walker Type: BLOOD SPECIMEN Ordering Facility: [facility] Address: [address] [place] [address] Performed By: #### 2 4321-2 #### [facility] CLIA [id number] [address] [place] [address] [place] Urea nitrogen [Mass/Vol] 12 mg/dL Normal 7-21 [facility] Comment on above: Order Comment: Speci men Type: BLOOD SPECIMEN Ordering Facility: [facility] Address: [address] [place] [address] Performed By: #### 2 4321-2 #### [facility] CLIA [id number] [address] [place] [address] [place] CBC panel Auto (Bld)on 02-01 Erythrocyte distribution width (RBC) [Ratio] 13.1 % 11.5 - 15.0 % [facility] Hematocrit (Bld) [Volume fraction] 43.3 % 36.0 - 46.0 % [facility] Hemoglobin (Bld) [Mass/Vol] 14.4 g/dL 11.5 - 15.5 g/dL [facility] Interpretation and review of laboratory results Normal [facility] MCH (RBC) [Entitic mass] 32.7 pg 26.0 - 34.0 pg [facility] MCHC (RBC) [Mass/Vol] 33.3 g/dL 30.5 - 36.0 g/dL [facility] MCV (RBC) [Entitic vol] 98.4 fL 80.0 - 100.0 fL [facility] Nucleated RBC (Bld) [#/Vol] NINF [facility] Platelet mean volume (Bld) [Entitic vol] 10.1 fL 9.0 - 12.7 fL [facility] Platelets (Bld) [#/Vol] 324 10*3/uL [facility] RBC (Bld) [#/Vol] 4.40 10*6/uL 3.90 - 5.2 0 m/uL [facility] WBC (Bld) [#/Vol] 10.19 10*3/uL [facility] Erythrocyte distribution width (RBC) [Ratio] 13.1 % Normal 11.5-15.0 [facility] Comment on above: Order Comment: Speci men Type: BLOOD SPECIMEN Ordering Facility: [facility] Address: [address] [place] [address] Performed By: #### 5 8410-2 #### [facility] CLIA [id number] [address] [place] [address] [place] Hematocrit (Bld) [Volume fraction] 43.3 % Normal 36.0-46.0 [facility] Comment on above: Order Comment: Speci men Type: BLOOD SPECIMEN Ordering Facility: [facility] Address: [address] [place] [address] Performed By: #### 5 8410-2 #### [facility] CLIA [id number] [address] [place] [address] [place] Hemoglobin (Bld) [Mass/Vol] 14.4 g/dL Normal 11.5-15.5 [facility] Comment on above: Order Comment: Speci men Type: BLOOD SPECIMEN Ordering Facility: [facility] Address: [address] [place] [address] Performed By: #### 5 8410-2 #### [facility] CLIA [id number] [address] [place] [address] [place] MCH (RBC) [Entitic mass] 32.7 pg Normal 26.0-34.0 [facility] Comment on above: Order Comment: Speci men Type: BLOOD SPECIMEN Ordering Facility: [facility] Address: [address] [place] [address] Performed By: #### 5 8410-2 #### [facility] CLIA [id number] [address] [place] [address] [place] MCHC (RBC) [Mass/Vol] 33.3 g/dL Normal 30.5-36.0 [facility] Comment on above: Order Comment: Speci men Type: BLOOD SPECIMEN Ordering Facility: [facility] Address: [address] [place] [address] Performed By: #### 5 8410-2 #### [facility] CLIA [id number] [address] [place] [address] [place] MCV (RBC) [Entitic vol] 98.4 fL Normal 80.0-100.0 [facility] Comment on above: Order Comment: Speci men Type: BLOOD SPECIMEN Ordering Facility: [facility] Address: [address] [place] [address] Performed By: #### 5 8410-2 #### [facility] CLIA [id number] [address] [place] [address] [place] Nucleated RBC (Bld) [#/Vol] 10*3/uL Normal <0.01 [facility] Comment on above: Order Comment: Speci men Type: BLOOD SPECIMEN Ordering Facility: [facility] Address: [address] [place] [address] Performed By: #### 5 8410-2 #### [facility] CLIA [id number] [address] [place] [address] [place] Platelet mean volume (Bld) [Entitic vol] 10.1 fL Normal 9.0-12.7 [facility] Comment on above: Order Comment: Speci men Type: BLOOD SPECIMEN Ordering Facility: [facility] Address: [address] [place] [address] Performed By: #### 5 8410-2 #### [facility] CLIA [id number] [address] [place] [address] [place] Platelets (Bld) [#/Vol] 324 10*3/uL Normal 150-400 [facility] Comment on above: Order Comment: Speci men Type: BLOOD SPECIMEN Ordering Facility: [facility] Address: [address] [place] [address] Performed By: #### 5 8410-2 #### [facility] CLIA [id number] [address] [place] [address] [place] RBC (Bld) [#/Vol] 4.40 10*6/uL Normal 3.90-5.20 [facility] Comment on above: Order Comment: Speci men Type: BLOOD SPECIMEN Ordering Facility: [facility] Address: [address] [place] [address] Performed By: #### 5 8410-2 #### [facility] CLIA [id number] [address] [place] [address] [place] WBC (Bld) [#/Vol] 10.19 10*3/uL Normal 3.70-11.00 [facility] Comment on above: Order Comment: Speci men Type: BLOOD SPECIMEN Ordering Facility: [facility] Address: [address] [place] [address] Performed By: #### 5 8410-2 #### [facility] CLIA [id number] [address] [place] [address] [place] HISTORY PHYSICALon HISTORY PHYSICAL HNO ID: [id number] Author: AUGUSTINA MCGARRY APRN.DIGITAL ACCOUNT MANAGER Service: ? Author Type: Nurse Practitioner Type: H&P Filed: 02/03/2024 15:11 Note Text: HISTORY AND PHYSICAL EXAMINATION SERVICE DATE: 02/02/2024 SERVICE TIME: 3:31 PM PRIMARY CARE PHYSICIAN: Raji Haile MD REASON FOR VISIT: Debra Delarosa is a 68 year old female who is scheduled for Procedure(s) (LRB): EXAM UNDER ANESTHESIA RECTAL (N/A) SURGICAL EXCISION LESION ANAL (N/A) at the request of Dr. Tracie Johnson for consultation. My final recommendation will be communicated back to the requesting physician by way of shared medical record or letter. Subjective CHIEF COMPLAINT: surgery HPI: Patient is a 68 year old female with Anal lesion identified on colonoscopy that is recommended for surgery. She currently denies any pain or bleeding. PAST MEDICAL HISTORY Diagnosis Date COPD (chronic obstructive pulmonary disease) (HCC) 02/02/2024 Obstructive sleep apnea syndrome 02/02/2024 Primary hypertension 02/02/2024 Smoker 02/02/2024 PAST SURGICAL HISTORY Procedure Laterality Date BACK SURGERY HX LUMBAR FUSION 2015.2021 COLONOSCOPY SCREENING HERNIA REPAIR HX JOINT REPLACEMENT HX [address] Peterson JOINT REPLACEMENT HX 2019 Rt ankle replacement PAST SURGICAL HISTORY OF Bilateral CARPAL TUNNEL RELEASE Bilateral PAST SURGICAL HISTORY OF CERVICAL FUSION - uknown level PAST SURGICAL HISTORY OF SECTION, LOW TRANSVERSE PAST SURGICAL HISTORY OF EGD PAST SURGICAL HISTORY OF open reduction internal fixation/ removal hardware; fx of right leg PAST SURGICAL HISTORY OF ARTHROSCOPY KNEE W/MENISCUS RPR MEDIAL/LATERAL 2011 PAST SURGICAL HISTORY OF ROTATOR CUFF REPAIR 04/2018 PAST SURGICAL HISTORY OF ROTATOR CUFF REPAIR Left 07/26/2019 Jonn PAST SURGICAL HISTORY OF Left TOTAL SHOULDER ARTHROPLASTY Left 02/28/2020 REMOVAL GALLBLADDER 2014 VAGINAL HYSTERECTOMY XCAPSL CTRC RMVL INSJ IO LENS PROSTH W/O ECP 05/15/2010 Performed by EUGENIA STANLEY at [facility] FAMILY HISTORY Problem Relation Age of Onset Diabetes Mother Arthritis Father Cancer Father Diabetes Sister Arthritis Brother SOCIAL HISTORY: Social History Tobacco Use Smoking status: Every Day Packs/day: 1.00 Years: 50.00 Additional pack years: 0.00 Total pack years: 50.00 Types: Cigarettes Vaping Use Vaping Use: Never used Substance Use Topics Alcohol use: Not Currently Drug use: Not Currently Prior to Admission medications as of 02/02/24 1541 Medication Sig Last Dose Taking lipase/protease/amylase (ZENPEP ORAL) Take by mouth. 40,000 international unit(s) 2 capsules with meals daily and 1 capsule with snacks. Taking Yes linaCLOtide (LINZESS) 290 mcg capsule Take by mouth daily at 6 am. Taking Yes hydroCHLOROthiazide 25 mg tablet Take 25 mg by mouth once daily. Taking Yes DULoxetine (CYMBALTA) 60 mg capsule Take 60 mg by mouth once daily. Taking Yes Lactobacillus acidophilus (PROBIOTIC ACIDOPHILUS ORAL) Take by mouth once daily. Taking Yes hbtafyfdgaf-edglpuato-bd lanter (TRELEGY ELLIPTA) 200-62.5-25 mcg inhalation powder Inhale 1 Puff as instructed once daily. Taking Yes omeprazole (PRILOSEC) 40 mg capsule Take 40 mg by mouth once daily. Taking Yes Cholecalciferol, Vitamin D3, (VITAMIN D-3) 50 mcg (2,000 unit) cap Take by mouth once daily. omega-3 DHA-EPA (FISH OIL) 1,200 (144-216) mg capsule Take 1 capsule by mouth daily with breakfast. calcium carbonate (CALCIUM 300 ORAL) Take by mouth once daily. No medication comments found. ALLERGIES Allergen Reactions Morphine COVID VACCINATION STATUS: Fully vaccinated REVIEW OF SYSTEMS: PAIN ASSESSMENT: General: No weight loss, malaise or fevers. Neuro: No history of TIA's, stroke, ELECTRICAL CONTROLS DESIGNER tumor, impaired sensorium, hemiplegia, paraplegia or quadraplegia. No neurological symptoms or problems. Respiratory: No history of current cough or dyspnea, or pneumonia in the past 6 weeks. (+) COPD, smoker, TEENA does not use CPAP Cardiovascular: Positive for: Hypertension, Negative for CAD, Chest Pain, CHF, PVD, Valvular Heart Disease, DVT/PE GI: Positive for GERD, Negative for Nausea, Vomiting, Abdominal pain, Difficulty swallowing, Liver disease, Pancreatitis : No history of dysuria, frequency or incontinence,, stones or chronic kidney disease CERTIFIED BREASTFEEDING EDUCATOR: Negative for abnormal vaginal bleeding, abnormal vaginal discharge. : Denies, No LMP recorded. Patient has had a hysterectomy. Endocrine: No history of diabetes. Has not taken steroids within the past 30 days. No history of endocrinological symptoms or problems. Hematology: No history of bleeding or clotting disorder. Pt is not taking anti-coagulation or platelet medications. No history of hematological symptoms or problems. Oncology: No history of CA metastasis, chemo within 30 days, or radiotherapy within 90 days. Has not lost 10% of body wt in 6 months. No history of (more content not included)... Normal [facility] HIV 1+2 Ab IA Qlon 4 HIV 1 and 2 Ab IA.rapid Nom (S/P/Bld) Normal [facility] Comment on above: Order Comment: Speci men Type: BLOOD SPECIMEN Ordering Facility: [facility] Address: [address] [place] [address] Result Comment: Test not indicated. Performed By: #### 5 8410-2 #### [facility] CLIA [id number] [address] [place], [place] [address] [place] [address] [place] HIV 1+2 Ab+HIV1 p24 Ag IA Ql Non-Reactive Normal Nonreactive [facility] Comment on above: Order Comment: Speci men Type: BLOOD SPECIMEN Ordering Facility: [facility] Address: [address] [place] [address] Performed By: #### 5 8410-2 #### [facility] CLIA [id number] [address] [place] [address] [place] HIV immunoassay testing algorithm interpretation (S/P/Bld) [Interp] Normal [facility] Comment on above: Order Comment: Speci men Type: BLOOD SPECIMEN [facility]ing Facility: [facility] Address: [address] [place] [address] Result Comment: No e vidence of HIV-1 or HIV-2 infection. Should recent infection be suspected, repeat testing may be considered 2-3 weeks after this draw. [place] Rev. Code 3701.243(E): This information has been disclosed to you from confidential records protected from disclosure by state law. ???You shall make no further disclosure of this information without the specific, written, and informed release of the individual to whom it pertains or as otherwise permitted by state law. A general authorization for the release of medical or other information is not sufficient for the purpose of the release of HIV test results or diagnoses. Performed By: #### 5 8410-2 #### [facility] CLIA [id number] [address] [place] [address] [place] Lore 01-30-2024 YOLA Telephone (LEN) -------- DEBRA DELAROSA ([id number]) 1955 F Date Time Provider Department 01/30/24 EDGAR BOSTON During your visit today, we recorded the following information about you: Edgar Boston APRN.DIGITAL ACCOUNT MANAGER 01/30/2024 7:38 AM Signed Patient was scheduled for virtual [facility] appt at 0730 today. Patient did not check in for visit. Called patient at 0735 to see if they needed any assistance logging in went straight to [facility]. This message routed to [facility] schedulers to contact patient to reschedule [facility] appt. Edgar Boston APRN.DIGITAL ACCOUNT MANAGER Allergies As of Date: 01/30/2024 Noted Allergy Reaction MORPHINE 09/08/2007 Date Reviewed: 01/27/2024 Reviewed by: Tracie Johnson MD - Fully Assessed Reason for Visit: Appointment [[id number]] Prescriptions as of 01/30/2024 - lipase/protease/amylase (ZENPEP ORAL) Take by mouth. 40,000 international unit(s) 2 capsules with meals daily and 1 capsule with snacks. - linaCLOtide (LINZESS) 290 mcg capsule Take by mouth daily at 6 am. - hydroCHLOROthiazide 25 mg tablet Take 25 mg by mouth once daily. - DULoxetine (CYMBALTA) 60 mg capsule Take 60 mg by mouth once daily. - Lactobacillus acidophilus (PROBIOTIC ACIDOPHILUS ORAL) Take by mouth once daily. - wdjybmbxhyw-zuwxhuhim-ie lanter (TRELEGY ELLIPTA) 200-62.5-25 mcg inhalation powder Inhale 1 Puff as instructed once daily. - Cholecalciferol, Vitamin D3, (VITAMIN D-3) 50 mcg (2,000 unit) cap Take by mouth once daily. - omega-3 DHA-EPA (FISH OIL) 1,200 (144-216) mg capsule Take 1 capsule by mouth daily with breakfast. - calcium carbonate (CALCIUM 300 ORAL) Take by mouth once daily. - omeprazole (PRILOSEC) 40 mg capsule Take 40 mg by mouth once daily. - SIMVASTATIN 40 MG TAB - NIACIN 500 MG TAB - TRAZODONE 50 MG TAB - CETIRIZINE 10 MG CAP - rabeprazole sodium(ACIPHEX 20 MG TAB) - MELOXICAM 15 MG TAB - CYCLOBENZAPRINE 10 MG TAB Problem List As Of Date 01/30/2024 Noted Resolved Unspecified Senile Cataract [H25.9] 05/02/2010 Encounter Status:Closed by EDGAR BOSTON on 01/30/24 [facility] CNOVon 01-27-2024 CNOV Office Visit ([facility] ) -------- DEBRA DELAROSA ([id number]) 1955 F Date Time Provider Department 01/27/24 8:00 AM [facility] During your visit today, we recorded the following information about you: Pulse Blood pressure Weight Height 65/minute 139/79 65.3 kg 1.651 m Tracie Johnson MD 01/27/2024 9:19 AM Signed COLORECTAL SURGERY January 27, 2024 Debra Delarosa This consult was requested by Dr. Temi Fajardo and my final recommendations will be communicated to the requesting health care provider by way of the shared medical record for internal providers or letter via the [employer] for external providers. 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 Anorectal lesions: None Anorectal symptoms: Last September had thick yellow liquid per rectum 2-3 times but none since. No itching, pain, bulges, lesions, bleeding, or urge to defecate Prior abnormal Pap or known HPV exposure: 2 abnormal PAP smears - at least 10 years ago with no issues on follow up Immunosuppressed? No history of cancer, chemotherapy use, or radiation use Patient states she is tolerating her diet, no recent weight changes, or excessive fatigue. She typically has a bowel movement daily but can go up to a week without one. Her stools can be hard or soft depending on the day but never hematochezia. She has tried stool softeners and hydration with no previous improvement in constipation. Most recently hasn't had a bowel movement in 4 days. 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 COPD HLD HTN PAST SURGICAL HISTORY Procedure Laterality Date XCAPSL CTRC RMVL INSJ IO LENS PROSTH W/O ECP 05/15/10 Performed by EUGENIA STANLEY at [facility] Cholecystectomy (years ago) Hysterectomy () Tubal ligation () Left inguinal hernia repair with mesh () Current Outpatient Medications Medication Sig Dispense Refill lipase/protease/amylase (ZENPEP ORAL) Take by mouth. 40,000 international unit(s) 2 capsules with meals daily and 1 capsule with snacks. linaCLOtide (LINZESS) 290 mcg capsule Take by mouth daily at 6 am. hydroCHLOROthiazide 25 mg tablet Take 25 mg by mouth once daily. DULoxetine (CYMBALTA) 60 mg capsule Take 60 mg by mouth once daily. Lactobacillus acidophilus (PROBIOTIC ACIDOPHILUS ORAL) Take by mouth once daily. euafrmmtvos-pouwnszpm-sq lanter (TRELEGY ELLIPTA) 200-62.5-25 mcg inhalation powder Inhale 1 Puff as instructed once daily. Cholecalciferol, Vitamin D3, (VITAMIN D-3) 50 mcg (2,000 unit) cap Take by mouth once daily. omega-3 DHA-EPA (FISH OIL) 1,200 (144-216) mg capsule Take 1 capsule by mouth daily with breakfast. calcium carbonate (CALCIUM 300 ORAL) Take by mouth once daily. omeprazole (PRILOSEC) 40 mg capsule Take 40 mg by mouth once daily. SIMVASTATIN 40 MG TAB 0 NIACIN 500 MG TAB 0 TRAZODONE 50 MG TAB 0 CETIRIZINE 10 MG CAP 0 rabeprazole sodium(ACIPHEX 20 MG TAB) 0 MELOXICAM 15 MG TAB 0 CYCLOBENZAPRINE 10 MG TAB 0 No current facility-administered medications for this visit. ALLERGIES Allergen Reactions Morphine No family history on file. Social History Tobacco Use Smoking status: Every Day Packs/day: 0.50 Years: 40.00 Additional pack years: 0.00 Total pack years: 20.00 Types: Cigarettes Substance Use Topics Alcohol use: Not Currently Drug use: Not Currently Physical Exam: BP 139/79 (BP Site: Right Arm, BP Position: Sitting) Pulse 65 Ht 165.1 cm (5' 5 ) Wt 65.3 kg (144 lb) SpO2 94% BMI 23.96 kg/m? General Appearance: Well appearing, alert, in no acute distress, well-hydrated, well nourished. Abdomen: soft, nontender, nondistended Anorectal: External exam reveals normal anoderm and external hemorrhoids. Digital rectal exam reveals right lateral anal canal lesion palpable, soft 5 mm [employer] Spot[employer] present: Yes Nena Anoscopy: The patient was placed in left lateral position. After digital exam with a lubricated finger, the scope was not easily inserted. Anoscopy aborted due to patient discomfort. Assessment Assessment and Plan: Debra Delarosa is a 68 year old female presents to (more content not included)... Normal [facility] Provider Orderson 01-20-2024 Provider Orders [id number] GTIFF [facility] XR lumbar spine AP/LAT/FLX/E XTon 01-20-2024 XR lumbar spine AP/LAT/FLX/EXT [facility] [place] [address] XRay Report Signed Patient: Debra Delarosa MR#: [id number] : 1955 Acct:[id number] Age/Sex: 68 / F ADM Date: 01/20/24 Loc: XD Room: Type: [facility] Attending Dr: Minh Mazariegos MD Copies to: Minh Mazariegos MD Ordering Provider: Minh Mazariegos MD Date of Service: 01/20/24 XR/XR lumbar spine AP/LAT/FLX/EXT: M54.50 - Low back pain, unspecified LUMBAR SPINE WITH FLEXION AND EXTENSION VIEWS - 4 views CLINICAL DATA: Low back pain. Previous back surgery COMPARISON: 06/20/2023 Standing AP as well as lateral views in neutral, flexion and extension were obtained. Patient is status post fusion with posterior rods and pedicle screws extending from L3 to L4 and L5 to S1. There are interbody fusion devices at these levels and at L4-5. The hardware appears intact and unchanged from the prior. There are no developing fractures. There is still minimal retrolisthesis of L1 on L2 and approximately 4 to 5 mm of anterolisthesis of L2 on L3. Alignment does not change significantly with flexion or extension. There is disc space narrowing at L2-3. There are small endplate spurs at the lower thoracic and upper lumbar spine. There is facet hypertrophy through the levels of fusion. The SI joints are intact. No paraspinal soft tissue abnormalities are noted. XR/XR lumbar spine AP/LAT/FLX/EXT IMPRESSION: POSTOPERATIVE AND DEGENERATIVE CHANGES, SIMILAR TO THE PRIOR. Impression dictated by: Jsesica Negron M.D.01/20/2024 11:07 AM Dictation Location: [facility] Transcribed By: BRITTA 01/20/24 1107 Dictated By: Jessica Negron MD 01/20/24 1058 Signed By: 01/20/24 1107 Normal [facility] [place] [facility] -------- DEBRA DELAROSA ([id number]) 1955 F Date Time Provider Department 01/06/24 [facility] During your visit today, we recorded the following information about you: Rocío Naik 01/06/2024 9:12 AM Signed Received referral for pt to see Dr. Johnson, from Dr. Temi Fajardo. Called and patient call in unavailable. They do not have MyChart either. Tonya Byrd 01/13/2024 9:14 AM Signed Used CC phone and was able to leave detailed VM to contact Dr. Johnson's office for assistance and scheduling appointment. Thank you. Tonya Galvan 01/16/2024 2:03 PM Signed Left VM offering scheduling assistance with Dr. Johnson and to contact office directly for assistance. Thank you. Tonya Bautista Allergies As of Date: 01/06/2024 Noted Allergy Reaction MORPHINE 09/08/2007 Date Reviewed: 05/15/2010 Reviewed by: Mikayla Thomas (Rn)(Hist), RN - Reviewed Reason for Visit: Appointment [186] Orders [681] Prescriptions as of 01/16/2024 - SIMVASTATIN 40 MG TAB - NIACIN 500 MG TAB - TRAZODONE 50 MG TAB - CETIRIZINE 10 MG CAP - rabeprazole sodium(ACIPHEX 20 MG TAB) - MELOXICAM 15 MG TAB - CYCLOBENZAPRINE 10 MG TAB Problem List As Of Date 01/06/2024 Noted Resolved Unspecified Senile Cataract [H25.9] 05/02/2010 Encounter Status:Closed by ROCÍO NAIK on 01/06/24 [facility] 12-30-2023 L Specimen: [id number] Received: 12/30/23 Status: NANCY Mancini Num: [id number] Spec Type: Surgical Subm Dr: Temi Fajardo DO Tissues: A Colon Biopsy (TRANSV POLYP) B Colon Biopsy (ASC POLYPS) C Colon Biopsy (ASC POLYPS CONTINUED) D Colon Biopsy (ANAL CANAL POLYP) Procedures: HE/14, Gross/Micro L4/4 Age/ Patient Sex Location Account Attending Physician Debra Delarosa 68/F [id number] Temi Fajardo DO SPEC NUM: [id number] RECD: 12/30/23 STATUS: NANCY MANCINI NUM: [id number] LANIE: 12/30/23- DR: Temi Fajardo DO ENTERED: 12/30/23-[address] [facility] [address]: SPEC TYPE: Surgical DEPT: S ORDERED: HE/14, Gross/Micro L4/4 ORDERED: HE/14, Gross/Micro L4/4 Pathological Diagnosis A. Transverse colon polyps, polypectomies: ? Tubular adenomas. B. Ascending colon polyps (A), biopsy/polypectomy: ? Tubular adenomas. C. Ascending colon polyps (B), biopsy/polypectomy: ? Tubular adenomas. D. Anal canal polyp, polypectomy: ? 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 Gross Description Received are 4 formalin filled containers each labeled with the patient's name, date of and specific specimen site. A. Further labeled transverse polyp are 3 grigsby polypoid tissue fragments admixed with mucus ranging from 0.6 x 0.3 x 0.1 cm to 0.3 x 0.2 x 0.1 cm, entirely submitted in A1. B. Further labeled ascending colon polyps 2a are multiple grigsby tissue fragments admixed with mucus measuring in aggregate 2.4 x 0.7 x 0.3 cm, entirely submitted in B1?B3. Specimen: [id number] Received: 12/30/23 Status: NANCY Mancini Num: [id number] Spec Type: Surgical Subm Dr: Temi Fajardo, DO Tissues: A Colon Biopsy (TRANSV POLYP) B Colon Biopsy (ASC POLYPS) C Colon Biopsy (ASC POLYPS CONTINUED) D Colon Biopsy (ANAL CANAL POLYP) Procedures: /14, Gross/Micro L4/4 Patient: Debra Delarosa [id number] (Continued) Specimen: [id number] Received: 12/30/23 (Continued) Gross Description (Continued) Signed (signature on file) Edi Charles MD 12/31/23 1244 Specimen: [id number] Received: 12/30/23 Status: NANCY Mancini Num: [id number] Spec Type: Surgical Subm Dr: Temi Fajardo DO Tissues: A Colon Biopsy (TRANSV POLYP) B Colon Biopsy (ASC POLYPS) C Colon Biopsy (ASC POLYPS CONTINUED) D Colon Biopsy (ANAL CANAL POLYP) Procedures: , Gross/Micro L4/4 Patient: Debra Delarosa [id number] (Continued) Specimen: [id number] Received: 12/30/23 (Continued) Gross Description (Continued) C. Further labeled ascending colon polyps 2b are multiple grigsby-pink polypoid tissue fragments admixed with mucus measuring in aggregate 2.5 x 2.1 x 0.3 cm, submitted entirely in C1-C2. D. Further labeled anal canal polyp are 2 grigsby mucosal tissue fragments admixed with mucus measuring 0.4 x 0.2 x 0.1 cm and 0.3 x 0.3 x 0.1 cm, entirely submitted in D1. Clinical history: Screening CPT Codes 56065 x 4 Specimen: [id number] Received: 12/30/23 Status: NANCY Leonmartita Num: [id number] Spec Type: Surgical Subm Dr: Temi Fajardo DO Tissues: A Colon Biopsy (TRANSV POLYP) B Colon Biopsy (ASC POLYPS) C Colon Biopsy (ASC POLYPS CONTINUED) D Colon Biopsy (ANAL CANAL POLYP) Procedures: , Gross/Micro L4/4 Patient: Debra Delarosa [id number] (Continued) Signed (signature on file) Eid Charles MD 12/31/23 1244 Normal [facility] Erythrocyte Sedimentation Ra gilberto 08-06-2023 ESR (Bld) [Velocity] 7 mm/h Normal 0-29 [facility] 51 Auto Other Erythrocyte sedimentation ra te by Photometric methodOrdered By: Sanjuana Valentine on 08-06-2023 ESR Photometric method (Bld) [Velocity] 7 mm/hr 0-29 [facility] Urate [Mass/volume] in Serum or PlasmaOrdered By: Sanjuana Valentine on 08-06-2023 Urate [Mass/Vol] 4.0 mg/dL 2.3-6.6 [facility] Uric Acidon 08-06-2023 Urate [Mass/Vol] 4.0354373 mg/dL Normal 2.3-6.6 mg/dL [facility] 51 Auto Other XR lumbar spine 6V w bending on 06-20-2023 XR lumbar spine 6V w bending [facility] 51 Auto Other XR lumbar spine 6V w bending [facility] 51 Auto Other XR lumbar spine 6V w bending [address] [place] [address] 51 Auto Other XR lumbar spine 6[place] [address] [facility] 51 Auto Other XR lumbar spine 6V w bending XRay Report [employer] Other XR lumbar spine 6V w bending Signed [employer] Other XR lumbar spine 6V w bending Patient: Debra Delarosa MR#: [id number] [facility] 51 Auto Other XR lumbar spine 6V w bending 19598 [employer] Other XR lumbar spine 6V w bending : 1955 Acct:[id number] [employer] Other XR lumbar spine 6V w bending Age/Sex: 67 / F ADM Date: 06/20/23 [employer] Other XR lumbar spine 6V w bending Loc: XD Room: Type: [facility] [employer] Other XR lumbar spine 6V w bending Attending Dr: Sanjuana BRENNANC [employer] Other XR lumbar spine 6V w bending Copies to: ANU AlmonteC [employer] Other XR lumbar spine 6V w bending Ordering Provider: CLAUDE Almonte [employer] Other XR lumbar spine 6V w bending Date of Service: 06/20/23 [employer] Other XR lumbar spine 6V w bending XR/XR lumbar spine 6V w bending: Z98.1 [employer] Other XR lumbar spine 6V w bending XR lumbar spine 6V w bending 06/20/2023 9:57 AM [employer] Other XR lumbar spine 6V w bending SIGNS AND SYMPTOMS: Low back stiffness and pain [employer] Other XR lumbar spine 6V w bending PROTOCOLS: Frontal, lateral, and flexion-extension views of the lumbar spine [employer] Other XR lumbar spine 6V w bending COMPARISON: None [employer] Other XR lumbar spine 6V w bending FINDINGS: [employer] Other XR lumbar spine 6V w bending There is moderate disc height loss at L2-3 with 4 mm of anterolisthesis of L2 upon L3 similar to the [employer] Other XR lumbar spine 6V w bending prior exam. There is no pathologic movement on flexion or extension. There is posterior and [employer] Other XR lumbar spine 6V w bending intervertebral fusion from L3 through S1. The vertebral body heights are preserved. [employer] Other XR lumbar spine 6V w bending The sacrum and sacroiliac joints are normal. Degenerative changes are noted in the hips, left [employer] Other XR lumbar spine 6V w bending greater than right. [employer] Other XR lumbar spine 6V w bending There is evidence of prior cholecystectomy in the right upper quadrant. [employer] Other XR lumbar spine 6V w bending XR/XR lumbar spine 6V w bending [employer] Other XR lumbar spine 6V w bending IMPRESSION: [employer] Other XR lumbar spine 6V w bending prior exam. There is no pathologic movement on flexion or extension. [employer] Other XR lumbar spine 6V w bending There is unchanged posterior and intervertebral fusion from L3 through S1. [employer] Other XR lumbar spine 6V w bending Impression dictated by: Julian Guerrero M.D.06/20/2023 2:22 PM [employer] Other XR lumbar spine 6V w bending Dictation Location: [place] [address] [employer] Other XR lumbar spine 6V w bending Transcribed By: BRITTA 06/20/23 [facility] [employer] Other XR lumbar spine 6V w bending Dictated By: Julian Guerrero II, MD 06/20/23 [facility] [employer] Other XR lumbar spine 6V w bending Signed By: [employer] Other XR lumbar spine 6V w bending 06/20/23 [facility] [employer] Other Calprotectin [Mass/mass] in StoolOrdered By: Bharat Valdivia on 04-03-2023 Calprotectin (Stl) [Mass/Mass] 52 ug/g 0-120 [facility] Comment on above: Concentration Interp retation Follow-Up< 5 - 50 ug/g Normal None>50 -120 ug/g Borderline Re-evaluate in 4-6 weeks >120 ug/g Abnormal Repeat as clinically indicatedPerformed at: [facility] [address] [id number] Director: Han Carlson MD, Phone: [phone] Elastase.pancreatic [Mass/ma ss] in StoolOrdered By: Bharat Valdivia on 04-03-2023 Elastase.pancreatic (Stl) [Mass/Mass] 184 >200 [facility] Comment on above: Result Units: ug Stephanie st./g Severe Pancreatic Insufficiency: <100 Moderate Pancreatic Insufficiency: 100 - 200 Normal: >200Performed at: [facility] [address] [id number] Director: Han Carlson MD, Phone: [phone] Stool lactoferrin detectionO rdered By: Bharat Valdivia on 04-03-2023 Lactoferrin Ql (Stl) [facility] Alanine aminotransferase [En zymatic activity/volume] in Serum or PlasmaOrdered By: Bharat Valdivia on 03-26-2023 ALT [Catalytic activity/Vol] 13 U/L 7-52 [facility] Albumin [Mass/volume] in Ser um or Plasma by Bromocresol green (BCG) dye binding methoOrdered By: Bharat Valdivia on 03-26-2023 Albumin BCG dye [Mass/Vol] 4.6 g/dL 3.5-5.7 [facility] Alkaline phosphatase [Enzyma tic activity/volume] in Serum or PlasmaOrdered By: Bharat Valdivia on 03-26-2023 ALP [Catalytic activity/Vol] 116 U/L 34-104 [facility] Aspartate aminotransferase [ Enzymatic activity/volume] in Serum or PlasmaOrdered By: Bharat Valdivia on 03-26-2023 AST [Catalytic activity/Vol] 13 U/L 13-39 [facility] Basophils Auto (Bld) [#/Vol] Ordered By: Bharat Valdivia on 03-26-2023 Basophils (Bld) [#/Vol] 0.1 10*3/uL 0.0-0.2 [facility] Basophils/100 WBC Auto (Bld) Ordered By: Bharat Valdivia on 03-26-2023 Basophils/100 WBC (Bld) 0.9 % . [facility] Bilirubin.total [Mass/volume ] in Serum or PlasmaOrdered By: Bharat Valdivia on 03-26-2023 Bilirubin [Mass/Vol] 1.5 mg/dL 0.3-1.0 [facility] Comment on above: Samples from patient s who have taken Naproxen have shown spurious elevation in Total Bilirubin levels. A metabolite of Naproxen, O-desmethylnaproxen, has been shown to interfere with the Halima-Alessio method for measuring Total Bilirubin. Calcium [Mass/volume] in Ser um or PlasmaOrdered By: Bharat Valdivia on 03-26-2023 Calcium [Mass/Vol] 9.5 mg/dL 8.6-10.3 [facility] Carbon dioxide, total [Moles /volume] in Serum or PlasmaOrdered By: Bharat Valdivia on 03-26-2023 CO2 [Moles/Vol] 29.6 mmol/L 21.0-31.0 [facility] Chloride [Moles/volume] in S kandice or PlasmaOrdered By: Bharat Valdivia on 03-26-2023 Chloride [Moles/Vol] 103 mmol/L 98-107 [facility] Creatinine [Mass/volume] in Serum or PlasmaOrdered By: Bharat Valdivia on 03-26-2023 Creatinine [Mass/Vol] 0.60 mg/dL 0.60-1.20 [facility] Eosinophils Auto (Bld) [#/Vo l]Ordered By: Bharat Valdivia on 03-26-2023 Eosinophils (Bld) [#/Vol] 0.2 10*3/uL 0.0-0.45 [facility] Eosinophils/100 WBC Auto (Bl d)Ordered By: Bharat Valdivia on 03-26-2023 Eosinophils/100 WBC (Bld) 1.7 % . [facility] Erythrocyte distribution wid th Auto (RBC) [Ratio]Ordered By: Bharat Valdivia on 03-26-2023 Erythrocyte distribution width (RBC) [Ratio] 13.4 % 11.9-15.3 [facility] Globulin Calc (S) [Mass/Vol] Ordered By: Bharat Valdivia on 03-26-2023 Globulin (S) [Mass/Vol] 2.4 g/dL [facility] Glucose [Mass/volume] in Ser um or PlasmaOrdered By: Bharat Valdivia on 03-26-2023 Glucose [Mass/Vol] 114 mg/dL 70-100 [facility] Comment on above: ADA recommended refe rence rangeRandom Glucose Reference Range is dependent on time and content of last meal. Glucose of more than 200 mg/dL in a nonstressed, ambulatory subject supports the diagnosis of Diabetes Mellitus. Hematocrit Auto (Bld) [Volum e fraction]Ordered By: Bharat Valdivia on 03-26-2023 Hematocrit (Bld) [Volume fraction] 43.4 % 34.0-46.4 [facility] Hemoglobin [Mass/volume] in BloodOrdered By: Bharat Valdivia on 03-26-2023 Hemoglobin (Bld) [Mass/Vol] 14.9 g/dL 11.8-15.4 [facility] Laboratory - CoagulationOrde red By: Bharat Valdivia on 03-26-2023 PT Coag (PPP) [Time] 11.3 s 9.0-12.9 [facility] Leukocytes [#/volume] correc kristel for nucleated erythrocytes in Blood by Automated counOrdered By: Bharat Valdivia on 03-26-2023 WBC corrected for nucl RBC Auto (Bld) [#/Vol] 9.3 10*3/uL 3.8-11.6 [facility] Lymphocytes Auto (Bld) [#/Vo l]Ordered By: Bharat Valdivia on 03-26-2023 Lymphocytes (Bld) [#/Vol] 2.0 10*3/uL 1.00-4.8 [facility] Lymphocytes/100 WBC Auto (Bl d)Ordered By: Bharat Valdivia on 03-26-2023 Lymphocytes/100 WBC (Bld) 21.8 % . [facility] MCH Auto (RBC) [Entitic mass ]Ordered By: Bharat Valdivia on 03-26-2023 MCH (RBC) [Entitic mass] 33.5 pg 24.7-34.3 [facility] MCHC Auto (RBC) [Mass/Vol]Or dered By: Bharat Valdivia on 03-26-2023 MCHC (RBC) [Mass/Vol] 34.4 g/dL 32.0-35.0 [facility] MCV Auto (RBC) [Entitic vol] Ordered By: Bharat Valdivia on 03-26-2023 MCV (RBC) [Entitic vol] 97.3 fL 80-100 [facility] Monocytes Auto (Bld) [#/Vol] Ordered By: Bharat Valdivia on 03-26-2023 Monocytes (Bld) [#/Vol] 0.9 10*3/uL 0.0-0.8 [facility] Monocytes/100 WBC Auto (Bld) Ordered By: Bharat Valdivia on 03-26-2023 Monocytes/100 WBC (Bld) 9.5 % . [facility] Neutrophils Auto (Bld) [#/Vo l]Ordered By: Bharat Valdivia on 03-26-2023 Neutrophils (Bld) [#/Vol] 6.1 10*3/uL 1.8-7.7 [facility] Neutrophils/100 WBC Auto (Bl d)Ordered By: Bharat Valdivia on 03-26-2023 Neutrophils/100 WBC (Bld) 66.1 % . [facility] No Panel InformationOrdered By: Bharat Valdivia on 03-26-2023 Estimated GFR (CKD-EPI) > 60.0 mL/Min [facility] Creatinine Clearance (Chem N/A [facility] Nucleated erythrocytes [Pres ence] in Blood by Automated countOrdered By: Bharat Vadlivia on 03-26-2023 Nucleated RBC Auto Ql (Bld) 0.1 /100{WBC} 0-0.5 [facility] Platelet mean volume Auto (B ld) [Entitic vol]Ordered By: Bharat Valdivia on 03-26-2023 Platelet mean volume (Bld) [Entitic vol] 7.6 fL 6.3-10.7 [facility] Platelet poor plasma interna tional normalized ratio (INR) by coagulation assay (relatOrdered By: Bharat Valdivia on 03-26-2023 INR Coag (PPP) [Relative time] 1.0 {INR} [facility] Comment on above: INR Therapeutic Rang e A) Pre- and Peroperative OAT started two weeks before surgery. NOT HIP SURGERY: 1.5 - 2.5 HIP SURGERY: 2 - 3B) Primary and secondary prevention of venous THROMBOSIS: 2 - 3C) Active venous thrombosis, pulmonary embolismand prevention of recurrent venous thrombosis: 2 - 3D) Prevention of arterial thromboembolismincluding patients with mechanical heart valves: 3 - 4.5 Platelets Auto (Bld) [#/Vol] Ordered By: Bharat Valdivia on 03-26-2023 Platelets (Bld) [#/Vol] 308 10*3/uL 150-450 [facility] Potassium [Moles/volume] in Serum or PlasmaOrdered By: Bharat Valdivia on 03-26-2023 Potassium [Moles/Vol] 3.0 mmol/L 3.5-5.1 [facility] Protein [Mass/volume] in Ser um or PlasmaOrdered By: Bharat Valdivia on 03-26-2023 Protein [Mass/Vol] 7.0 g/dL 6.4-8.9 [facility] RBC Auto (Bld) [#/Vol]Ordere d By: Bharat Valdivia on 03-26-2023 RBC (Bld) [#/Vol] 4.46 10*6/uL 3.60-5.00 [facility] [place] Serum or plasma albumin/glob ulin mass ratioOrdered By: Bharat Valdivia on 03-26-2023 Albumin/Globulin [Mass ratio] 1.9 {ratio} [facility] Serum or plasma anion gap de terminationOrdered By: Bharat Valdivia on 03-26-2023 Anion gap [Moles/Vol] 11.4 mmol/L 6.0-15.0 [facility] Sodium [Moles/volume] in Ser um or PlasmaOrdered By: Bharat Valdivia on 03-26-2023 Sodium [Moles/Vol] 141 mmol/L 136-145 [facility] Thyrotropin [Units/volume] i n Serum or PlasmaOrdered By: Bharat Valdivia on 03-26-2023 TSH Qn 1.60 m[IU]/L 0.45-5.33 [facility] Thyroxine (T4) free [Mass/vo lume] in Serum or PlasmaOrdered By: Bharat Valdivia on 03-26-2023 Free T4 [Mass/Vol] 0.99 ng/dL 0.61-1.12 [facility] Urea nitrogen [Mass/volume] in Serum or PlasmaOrdered By: Bharat Valdivia on 03-26-2023 Urea nitrogen [Mass/Vol] 13 mg/dL 7- [facility] WBC Auto (Bld) [#/Vol]Ordere d By: Bharat Valdivia on 03-26-2023 WBC (Bld) [#/Vol] 9.3 10*3/uL 3.8-11.6 [facility] XR Chest 2 Views*on 05-27-20 22 XR Chest 2 Views* HISTORY: Cough, righ t sided chest pain FNDINGS: Comparison made with prior examination August 02, 2021. Diffuse interstitial prominence, minimal progression from August 2021. Slight increase in subsegmental atelectasis right medial base. Mild paratracheal fullness likely accentuated by patient positioning/rotation. Cervical plate screw fusion hardware. Left shoulder arthroplasty. No new parenchymal consolidation or pulmonary edema, pleural effusion. Normal cardiac silhouette size. No rib fracture or pneumothorax. IMPRESSION: 1. Sight increase right medial basilar subsegmental atelectasis, no new consolidation or focal mass. 2. Persistent diffuse interstitial prominence consistent with interstitial lung disease. Report reported and signed by Josue Cesar on 05/27/2022 1607 Normal [facility] XR Spine Thoracic 2 Views*on 05-27-2022 XR Spine Thoracic 2 Views* FINDINGS: Normal vertebral body height and alignment. Mid thoracic arthritic changes. No fracture. IMPRESSION: 1. Diffuse arthritis, no fracture. Report reported and signed by Josue Cesar on 05/27/2022 1608 Normal [facility] SCREENING MAMMOGRAM W/KALEIGH, BILATERAL*on 05-15-2022 SCREENING MAMMOGRAM W/KALEIGH, BILATERAL* COMPARISON: May 14, 2021, May 07, 2019 TECHNIQUE: 2D and 3D Tomosynthesis of the right and left breasts was performed. FINDINGS: Breast composition demonstrates heterogeneously dense parenchyma. Overall appearance is stable. Typically benign calcifications. No suspicious microcalcifications, asymmetry, architectural distortion, or associated features are present. IMPRESSION: BIRADS 2: Benign mammogram Board Certified Radiologist. Accredited by the ACR and FDA. MAMMOGRAPHY IS VERY IMPORTANT TO YOUR HEALTH. THE CURRENT [place] [employer] GUIDELINES RECOMMENDS ANNUAL MAMMOGRAPHY BEGINNING AT AGE 40 THIS FACILITY USES A REMINDER SYSTEM TO ENSURE ALL PATIENTS RECEIVE REMINDER NOTIFICATIONS AT THE APPROPRIATE TIME BASED ON THE RECOMMENDATIONS OF THIS EXAM. Report reported and signed by Josue Cesar on 05/15/2022 0933 Normal [facility] COVID-19 Positive/NegativeOr dered By: Minh Mazariegos on 01-21-2022 SARS-CoV-2 (COVID-19) N gene ARSEN+probe Ql (Resp) Negative Negative [facility] Comment on above: Testing for SARS-CoV -2 by RT-PCR This test was developed and its performance characteristics determined by [employer] and validated at the [facility]. This test has not been FDA cleared or approved. This test has been authorized by FDA under an Emergency Use Authorization (EUA). This test has been validated in accordance with the FDA's Guidance Document (Policy for Diagnostics Testing in Laboratories Certified to Perform High Complexity Testing under CLIA prior to Emergency Use Authorization for Coronavirus Disease-2019 during the Public Health Emergency) issued on December 02, 2019. This test is only authorized for the duration of time the declaration that circumstances exist justifying the authorization of the emergency use of in vitro diagnostic tests for detection of SARS-CoV-2 virus and/or diagnosis of COVID-19 infection under section 564(b)(1) of the Act, 21 U.S.C. 360bbb-3(b)(1), unless the authorization is terminated or revoked sooner. Albumin [Mass/volume] in Ser um or PlasmaOrdered By: Minh Mazariegos on 01-09-2022 Albumin [Mass/Vol] 4.4 g/dL 3.2-5.5 [facility] Basophils Auto (Bld) [#/Vol] Ordered By: Minh Mazariegos on 01-09-2022 Basophils (Bld) [#/Vol] 0.1 10*3/uL 0.0-0.2 [facility] Basophils/100 WBC Auto (Bld) Ordered By: Minh Mazariegos on 01-09-2022 Basophils/100 WBC (Bld) 0.6 % [facility] Blood hemoglobin measurement (mass/volume)Ordered By: Minh Mazariegos on 01-09-2022 Hemoglobin (Bld) [Mass/Vol] 15.0 g/dL 11.8-15.4 [facility] Blood leukocytes automated c ount (number/volume)Ordered By: Minh Mazariegos on 01-09-2022 WBC (Bld) [#/Vol] 9.3 10*3/uL 4.5-11.0 [facility] Creatinine and Glomerular fi ltration rate.predicted panel (S/P/Bld)Ordered By: Minh Mazariegos on 01-09-2022 Creatinine [Mass/Vol] 0.66 mg/dL 0.44-1.03 [facility] Eosinophils Auto (Bld) [#/Vo l]Ordered By: Minh Mazariegos on 01-09-2022 Eosinophils (Bld) [#/Vol] 0.2 10*3/uL 0.0-0.45 [facility] Eosinophils/100 WBC Auto (Bl d)Ordered By: Minh Mazariegos on 01-09-2022 Eosinophils/100 WBC (Bld) 1.9 % [facility] Erythrocyte distribution wid th Auto (RBC) [Ratio]Ordered By: Minh Mazariegos on 01-09-2022 Erythrocyte distribution width (RBC) [Ratio] 13.4 % 11.9-15.3 [facility] Estimated glomerular filtrat ion rate (GFR) non- AmericanOrdered By: Minh Mazariegos on 01-09-2022 GFR/1.73 sq M.predicted among non-blacks MDRD (S/P/Bld) [Vol rate/Area] > 60 mL/Min [facility] Globulin Calc (S) [Mass/Vol] Ordered By: Minh Mazariegos on 01-09-2022 Globulin (S) [Mass/Vol] 2.6 g/dL [facility] Hematocrit Auto (Bld) [Volum e fraction]Ordered By: Minh Mazariegos on 01-09-2022 Hematocrit (Bld) [Volume fraction] 44.8 % 34.0-46.4 [facility] Laboratory - Hematology and Cell countsOrdered By: Minh Mazariegos on 01-09-2022 Nucleated RBC/100 WBC (Bld) [Ratio] 0.1 % 0-0.5 [facility] Lymphocytes Auto (Bld) [#/Vo l]Ordered By: Minh Mazariegos on 01-09-2022 Lymphocytes (Bld) [#/Vol] 2.5 10*3/uL 1.00-4.8 [facility] Lymphocytes/100 WBC Auto (Bl d)Ordered By: Minh Mazariegos on 01-09-2022 Lymphocytes/100 WBC (Bld) 26.8 % [facility] MCH Auto (RBC) [Entitic mass ]Ordered By: Minh Mazariegos on 01-09-2022 MCH (RBC) [Entitic mass] 32.9 pg 24.7-34.3 [facility] MCHC Auto (RBC) [Mass/Vol]Or dered By: Minh Mazariegos on 01-09-2022 MCHC (RBC) [Mass/Vol] 33.6 g/dL 32.0-35.0 [facility] MCV Auto (RBC) [Entitic vol] Ordered By: Minh Mazariegos on 01-09-2022 MCV (RBC) [Entitic vol] 98.1 fL 80-100 [facility] Monocytes Auto (Bld) [#/Vol] Ordered By: Minh Mazariegos on 01-09-2022 Monocytes (Bld) [#/Vol] 0.8 10*3/uL 0.0-0.8 [facility] Monocytes/100 WBC Auto (Bld) Ordered By: Minh Mazariegos on 01-09-2022 Monocytes/100 WBC (Bld) 8.6 % [facility] Neutrophils Auto (Bld) [#/Vo l]Ordered By: Minh Mazariegos on 01-09-2022 Neutrophils (Bld) [#/Vol] 5.8 10*3/uL 1.8-7.7 [facility] Neutrophils/100 WBC Auto (Bl d)Ordered By: Minh Mazariegos on 01-09-2022 Neutrophils/100 WBC (Bld) 62.1 % [facility] No Panel InformationOrdered By: Minh Mazariegos on 01-09-2022 Estimated GFR () > 60 mL/Min [facility] Comment on above: GFR estimated refere nce range: According to KDOQI guidelines, <60 ml/min/1.73m2 is sufficient to diagnose a patient with chronic kidney disease. Pharmacy Creatinine Clearance (Chem N/A [facility] Platelet mean volume Auto (B ld) [Entitic vol]Ordered By: Minh Mazariegos on 01-09-2022 Platelet mean volume (Bld) [Entitic vol] 8.6 fL 6.3-10.7 [facility] Platelets Auto (Bld) [#/Vol] Ordered By: Minh Mazariegos on 01-09-2022 Platelets (Bld) [#/Vol] 323 10*3/uL 150-450 [facility] Protein [Mass/volume] in Ser um or PlasmaOrdered By: Minh Mazariegos on 01-09-2022 Protein [Mass/Vol] 7.0 g/dL 6.1-7.9 [facility] RBC Auto (Bld) [#/Vol]Ordere d By: Minh Mazariegos on 01-09-2022 RBC (Bld) [#/Vol] 4.56 10*6/uL 3.60-5.00 [facility] [place] Serum or plasma alanine perales otransferase measurement without P-5'-P (enzymatic activiOrdered By: Minh Mazariegos on 01-09-2022 ALT No additional P-5'-P [Catalytic activity/Vol] 20 U/L 10-60 [facility] Serum or plasma albumin/glob ulin mass ratioOrdered By: Minh Mazariegos on 01-09-2022 Albumin/Globulin [Mass ratio] 1.7 {ratio} [facility] Serum or plasma alkaline maico sphatase measurement (enzymatic activity/volume)Ordered By: Minh Mazariegos on 01-09-2022 ALP [Catalytic activity/Vol] 93 U/L 32-92 [facility] Serum or plasma aspartate am inotransferase measurement (enzymatic activity/volume)Ordered By: Minh Mazariegos on 01-09-2022 AST [Catalytic activity/Vol] 20 U/L 10-42 [facility] Serum or plasma calcium nataliya urement (mass/volume)Ordered By: Minh Mazariegos on 01-09-2022 Calcium [Mass/Vol] 9.8 mg/dL 8.2-10.2 [facility] Serum or plasma chloride angelito surement (moles/volume)Ordered By: Minh Mazariegos on 01-09-2022 Chloride [Moles/Vol] 103 mmol/L 95-114 [facility] Serum or plasma glucose nataliya urement (mass/volume)Ordered By: Minh Mazariegos on 01-09-2022 Glucose [Mass/Vol] 80 mg/dL 70-100 [facility] Comment on above: ADA recommended refe rence range Random Glucose Reference Range is dependent on time and content of last meal. Glucose of more than 200 mg/dL in a nonstressed, ambulatory subject supports the diagnosis of Diabetes Mellitus. Serum or plasma potassium me asurement (moles/volume)Ordered By: Minh Mazariegos on 01-09-2022 Potassium [Moles/Vol] 3.8 mmol/L 3.5-5.1 [facility] Serum or plasma sodium measu rement (moles/volume)Ordered By: Minh Mazariegos on 01-09-2022 Sodium [Moles/Vol] 139 mmol/L 136-146 [facility] Serum or plasma total biliru bin measurement (mass/volume)Ordered By: Minh Mazariegos on 01-09-2022 Bilirubin [Mass/Vol] 1.0 mg/dL 0.3-1.2 [facility] Serum or plasma total carbon dioxide measurement (moles/volume)Ordered By: Minh Mazariegos on 01-09-2022 CO2 [Moles/Vol] 22.4 mmol/L 22.0-30.0 [facility] Serum or plasma urea nitroge n measurement (mass/volume)Ordered By: Minh Mazariegos on 01-09-2022 Urea nitrogen [Mass/Vol] 12 mg/dL 9-23 [facility] XR Hip Complete Left*on 10-02 XR Hip Complete Left* FINDINGS: Minimal superior hip joint space loss. No pincer or CAM deformities. No cortical or stress fracture. Lumbosacral fusion hardware. Pelvic calcifications, unchanged from prior CT May 17, 2021. IMPRESSION: Minimal arthritis. Report reported and signed by Josue Cesar on 10/15/2021 1111 Normal [facility] Vital Signs Date Time Vital Sign Value Performing Clinician Facility 09-14-2024 14:25-0500 Body height 163.8 cm Raji Haile MD Work Phone: [facility] 09-14-2024 14:25-0500 Body mass index (BMI) [Ratio] 24.54 kg/m2 Raji Haile MD Work Phone: [facility] 09-14-2024 14:25-0500 Body weight 65.86 kg Raji Haile MD Work Phone: [facility] 09-14-2024 14:25-0500 Diastolic blood pressure 84 mm[Hg] Raji Haile MD Work Phone: [facility] 09-14-2024 14:25-0500 Heart rate 67 /min Raji Haile MD Work Phone: [facility] 09-14-2024 14:25-0500 Respiratory rate 18 /min Raji Haile MD Work Phone: [facility] 09-14-2024 14:25-0500 SaO2% (BldA) [Mass fraction] 97 % Raji Haile MD Work Phone: [facility] 09-14-2024 14:25-0500 Systolic blood pressure 118 mm[Hg] Raji Haile MD Work Phone: [facility] 09-02-2024 08:17-0500 Body height 163.8 cm Raji Haile MD Work Phone: [facility] 09-02-2024 08:17-0500 Body mass index (BMI) [Ratio] 24.4 kg/m2 Raji Haile MD Work Phone: [facility] 09-02-2024 08:17-0500 Body weight 65.5 kg Raji Haile MD Work Phone: [facility] 09-02-2024 08:17-0500 Diastolic blood pressure 72 mm[Hg] Raji Haile MD Work Phone: [facility] 09-02-2024 08:17-0500 Heart rate 73 /min Raji Haile MD Work Phone: [facility] 01-02-2025 08:17-0500 Respiratory rate 20 /min Raji Haile MD Work Phone: [facility] 09-02-2024 08:17-0500 SaO2% (BldA) [Mass fraction] 97 % Raji Haile MD Work Phone: [facility] 09-02-2024 08:17-0500 Systolic blood pressure 118 mm[Hg] Raji Haile MD Work Phone: [facility] 06-22-2024 10:38-0400 Body height 163.8 cm Raji Haile MD Work Phone: [facility] 06-22-2024 10:38-0400 Body mass index (BMI) [Ratio] 24.67 kg/m2 Raji Haile MD Work Phone: [facility] 06-22-2024 10:38-0400 Body weight 66.22 kg Raji Haile MD Work Phone: [facility] 06-22-2024 10:38-0400 Diastolic blood pressure 72 mm[Hg] Raji Haile MD Work Phone: [facility] 06-22-2024 10:38-0400 Heart rate 68 /min Raji Haile MD Work Phone: [facility] 06-22-2024 10:38-0400 Respiratory rate 18 /min Raji Haile MD Work Phone: [facility] 06-22-2024 10:38-0400 SaO2% (BldA) [Mass fraction] 97 % Raji Haile MD Work Phone: [facility] 06-22-2024 10:38-0400 Systolic blood pressure 128 mm[Hg] Raji Haile MD Work Phone: [facility] 06-08-2024 11:10-0400 Body height 163.8 cm Raji Haile MD Work Phone: [facility] 06-08-2024 11:10-0400 Body mass index (BMI) [Ratio] 24.07 kg/m2 Raji Haile MD Work Phone: [facility] 06-08-2024 11:10-0400 Body temperature 97.11 [degF] aRji Haile MD Work Phone: [facility] 06-08-2024 11:10-0400 Body weight 64.59 kg Raji Haile MD Work Phone: [facility] 06-08-2024 11:10-0400 Diastolic blood pressure 64 mm[Hg] Raji Haile MD Work Phone: [facility] 06-08-2024 11:10-0400 Heart rate 70 /min Raji Haile MD Work Phone: [facility] 06-08-2024 11:10-0400 SaO2% (BldA) [Mass fraction] 97 % Raji Haile MD Work Phone: [facility] 06-08-2024 11:10-0400 Systolic blood pressure 108 mm[Hg] Raji Haile MD Work Phone: [facility] 06-01-2024 13:53-0400 Diastolic blood pressure 66 mm[Hg] MD Raji Haile Work Phone: [facility] 06-01-2024 13:53-0400 Heart rate 55 /min MD Raji Haile Work Phone: [facility] 06-01-2024 13:53-0400 Respiratory rate 16 /min MD Raji Haile Work Phone: [facility] 06-01-2024 13:53-0400 SaO2% (BldA) [Mass fraction] 97 % MD Raji Haile Work Phone: [facility] 06-01-2024 13:53-0400 Systolic blood pressure 126 mm[Hg] MD Raji Haile Work Phone: [facility] 06-01-2024 10:28-0400 Body height 165.1 cm MD Raji Haile Work Phone: [facility] 06-01-2024 10:28-0400 Body weight 63.5 kg MD Raji Haile Work Phone: [facility] 05-12-2024 09:01-0400 Body height 165.1 cm MD Raji Haile Work Phone: [facility] 05-12-2024 09:01-0400 Body mass index (BMI) [Ratio] 24.4 kg/m2 MD Rjai Haile Work Phone: [facility] 05-12-2024 09:01-0400 Body weight 66.67 kg MD Raji Haile Work Phone: [facility] 04-22-2024 10:17-0400 Body height 165.1 cm MD Raji Haile Work Phone: [facility] 04-22-2024 10:17-0400 Body mass index (BMI) [Ratio] 24.1 kg/m2 MD Raji Haile Work Phone: [facility] 04-22-2024 10:17-0400 Body weight 65.88 kg MD Raji Haile Work Phone: [facility] 03-02-2024 10:03-0400 Body height 165.1 cm MD Raji Haile Work Phone: [facility] 03-02-2024 10:03-0400 Body mass index (BMI) [Ratio] 23.6 kg/m2 MD Raji Haile Work Phone: [facility] 03-02-2024 10:03-0400 Body weight 64.41 kg MD Raji Haile Work Phone: [facility] 02-02-2024 15:02-0400 Diastolic blood pressure 73 mm[Hg] Pacc 4 Work Phone: [facility] 02-02-2024 15:02-0400 Systolic blood pressure 135 mm[Hg] [facility] 4 Work Phone: [facility] 02-02-2024 14:48-0400 Body height 165.1 cm [facility] 4 Work Phone: [facility] 02-02-2024 14:48-0400 Body mass index (BMI) [Ratio] 24.21 kg/m2 Pac 4 Work Phone: [facility] 02-02-2024 14:48-0400 Body temperature 97.81 [degF] Pac 4 Work Phone: [facility] 02-02-2024 14:48-0400 Body weight 66 kg Pac 4 Work Phone: [facility] 02-02-2024 14:48-0400 Heart rate 69 /min [facility] 4 Work Phone: [facility] 02-02-2024 14:48-0400 Respiratory rate 16 /min [facility] 4 Work Phone: [facility] 02-02-2024 14:48-0400 SaO2% (BldA) [Mass fraction] 96 % [facility] 4 Work Phone: [facility] 01-27-2024 08:07-0400 Body height 165.1 cm Tracie Johnson MD Work Phone: [facility] 01-27-2024 08:07-0400 Body mass index (BMI) [Ratio] 23.96 kg/m2 Tracie Johnson MD Work Phone: [facility] 01-27-2024 08:07-0400 Body weight 65.32 kg Tracie Johnson MD Work Phone: [facility] 01-27-2024 08:07-0400 Diastolic blood pressure 79 mm[Hg] Tracie Johnson MD Work Phone: [facility] 01-27-2024 08:07-0400 Heart rate 65 /min Tracie Johnson MD Work Phone: [facility] 01-27-2024 08:07-0400 SaO2% (BldA) [Mass fraction] 94 % Tracie Johnson MD Work Phone: [facility] 01-27-2024 08:07-0400 Systolic blood pressure 139 mm[Hg] Tracie Johnson MD Work Phone: [facility] 01-20-2024 08:51-0400 Body height 165.1 cm MD Raji Haile Work Phone: [facility] 01-20-2024 08:51-0400 Body mass index (BMI) [Ratio] 24 kg/m2 MD Raji Haile Work Phone: [facility] 01-20-2024 08:51-0400 Body weight 65.54 kg MD Raji Haile Work Phone: [facility] 12-30-2023 12:21-0400 Diastolic blood pressure 64 mm[Hg] MD Raji Haile Work Phone: [facility] 12-30-2023 12:21-0400 Heart rate 49 /min MD Raji Haile Work Phone: [facility] 12-30-2023 12:21-0400 Respiratory rate 18 /min MD Raji Haile Work Phone: [facility] 12-30-2023 12:21-0400 SaO2% (BldA) [Mass fraction] 95 % MD Raji Haile Work Phone: [facility] 12-30-2023 12:21-0400 Systolic blood pressure 129 mm[Hg] MD Raji Haile Work Phone: [facility] 12-30-2023 08:16-0400 Body height 165.1 cm MD Raji Haile Work Phone: [facility] 12-30-2023 08:16-0400 Body weight 63.95 kg MD Raji Haile Work Phone: [facility] 12-16-2023 11:46-0400 Diastolic blood pressure 69 mm[Hg] MD Raji Haile Work Phone: [facility] 12-16-2023 11:46-0400 Heart rate 50 /min MD Raji Haile Work Phone: [facility] 12-16-2023 11:46-0400 Respiratory rate 16 /min MD Raji Haile Work Phone: [facility] 12-16-2023 11:46-0400 SaO2% (BldA) [Mass fraction] 98 % MD Raji Haile Work Phone: [facility] 12-16-2023 11:46-0400 Systolic blood pressure 127 mm[Hg] MD Raji Haile Work Phone: [facility] 12-16-2023 09:45-0400 Body height 165.1 cm MD Raji Haile Work Phone: [facility] 12-16-2023 09:45-0400 Body temperature 98.3 [degF] MD Raji Haile Work Phone: [facility] 12-16-2023 09:45-0400 Body weight 62.59 kg MD Raji Haile Work Phone: [facility] 11-27-2023 10:21-0400 Body height 165.1 cm [facility] 11-27-2023 10:21-0400 Body mass index (BMI) [Ratio] 23.8 kg/m2 [facility] 11-27-2023 10:21-0400 Body weight 64.86 kg [facility] 11-27-2023 10:21-0400 Diastolic blood pressure 74 mm[Hg] [facility] 11-27-2023 10:21-0400 Heart rate 73 /min [facility] 11-27-2023 10:21-0400 Systolic blood pressure 124 mm[Hg] [facility] 10-16-2023 14:47-0500 Body height 163.8 cm Raji Haile MD Work Phone: [facility] 10-16-2023 14:47-0500 Body mass index (BMI) [Ratio] 24.54 kg/m2 Raji Haile MD Work Phone: [facility] 10-16-2023 14:47-0500 Body temperature 98.8 [degF] Raji Haile MD Work Phone: [facility] 10-16-2023 14:47-0500 Body weight 65.86 kg Raji Haile MD Work Phone: [facility] 10-16-2023 14:47-0500 Diastolic blood pressure 60 mm[Hg] Raji Haile MD Work Phone: [facility] 10-16-2023 14:47-0500 Heart rate 68 /min Raji Haile MD Work Phone: [facility] 10-16-2023 14:47-0500 SaO2% (BldA) [Mass fraction] 97 % Raji Haile MD Work Phone: [facility] 10-16-2023 14:47-0500 Systolic blood pressure 128 mm[Hg] Raji Haile MD Work Phone: [facility] 08-06-2023 09:20-0500 Body height 165.1 cm [employer] Other [employer] Other 08-06-2023 09:20-0500 Body mass index (BMI) [Ratio] 26.96 kg/m2 [employer] Other [employer] Other 08-06-2023 09:20-0500 Body weight 73.48 kg [employer] Other [employer] Other 06-20-2023 08:40-0400 Body height 165.1 cm [employer] Other [employer] Other 06-20-2023 08:40-0400 Body mass index (BMI) [Ratio] 24.79 kg/m2 [employer] Other [employer] Other 06-20-2023 08:40-0400 Body weight 67.59 kg [employer] Other [employer] Other 04-02-2023 14:02-0400 Diastolic blood pressure 60 mm[Hg] MD Raji Haile Work Phone: [facility] 04-02-2023 14:02-0400 Heart rate 63 /min MD Raji Haile Work Phone: [facility] 04-02-2023 14:02-0400 Respiratory rate 20 /min MD Raji Haile Work Phone: [facility] 04-02-2023 14:02-0400 SaO2% (BldA) [Mass fraction] 96 % MD Raji Haile Work Phone: [facility] 04-02-2023 14:02-0400 Systolic blood pressure 111 mm[Hg] MD Raji Haile Work Phone: [facility] 04-02-2023 11:08-0400 Body height 165.1 cm MD Raji Haile Work Phone: [facility] 04-02-2023 11:08-0400 Body weight 72.12 kg MD Raji Haile Work Phone: [facility] 03-19-2023 09:30-0400 Body height Bharat Valdivia Other [employer] Other 03-19-2023 09:30-0400 Body mass index (BMI) [Ratio] 26.46 kg/m2 Bharat Valdivia Other [employer] Other 03-19-2023 09:30-0400 Body weight 72.12 kg Bharat Valdivia Other [employer] Other 03-19-2023 09:30-0400 Diastolic blood pressure 84 mm[Hg] Bharat Valdivia Other [employer] Other 03-19-2023 09:30-0400 Systolic blood pressure 135 mm[Hg] Bharat Valdivia Other [employer] Other 07-30-2022 10:40-0500 Body height Minh Mazariegos Other [employer] Other 07-30-2022 10:40-0500 Body mass index (BMI) [Ratio] 29.12 kg/m2 Minh Mazarigeos Other [employer] Other 07-30-2022 10:40-0500 Body weight 79.38 kg Minh Mazariegos Other [employer] Other 04-23-2022 15:40-0400 Body height Minh Mazariegos Other [employer] Other 04-23-2022 15:40-0400 Body mass index (BMI) [Ratio] 29.12 kg/m2 Minh Mazariegos Other [employer] Other 04-23-2022 15:40-0400 Body weight 79.38 kg Minh Mazariegos Other [employer] Other 02-28-2022 14:00-0400 Body height Minh Mazariegos Other [employer] Other 02-28-2022 14:00-0400 Body mass index (BMI) [Ratio] 29.62 kg/m2 Minh Mazariegos Other [employer] Other 02-28-2022 14:00-0400 Body weight 80.74 kg Minh Mazariegos Other [employer] Other 01-25-2022 08:00-0400 Body temperature 97.7 [degF] MD Raji Haile Work Phone: [facility] 01-25-2022 08:00-0400 Diastolic blood pressure 70 mm[Hg] MD Raji Haile Work Phone: [facility] 01-25-2022 08:00-0400 Heart rate 53 /min MD Raji Haile Work Phone: [facility] 01-25-2022 08:00-0400 Respiratory rate 16 /min MD Raji Haile Work Phone: [facility] 01-25-2022 08:00-0400 SaO2% (BldA) [Mass fraction] 93 % MD Raji Haile Work Phone: [facility] 01-25-2022 08:00-0400 Systolic blood pressure 125 mm[Hg] MD Raji Haile Work Phone: [facility] 01-25-2022 05:37-0400 Body weight 72.57 kg MD Raji Haile Work Phone: [facility] 01-24-2022 09:40-0400 Body height 165.1 cm MD Raji Haile Work Phone: [facility] 01-23-2022 16:41-0400 Inhaled oxygen flow rate 1 L/min MD Raji Haile Work Phone: [facility] 01-23-2022 11:03-0400 Body mass index (BMI) [Ratio] 26.6 kg/m2 MD Raji Haile Work Phone: [facility] 12-18-2021 14:40-0400 Body height Minh Mazariegos Other [employer] Other 12-18-2021 14:40-0400 Body mass index (BMI) [Ratio] 29.62 kg/m2 Minh Mazariegos Other [employer] Other 12-18-2021 14:40-0400 Body weight 80.74 kg Minh Mazariegos Other [employer] Other 11-27-2021 11:40-0400 Body height Minh Mazariegos Other [employer] Other 11-27-2021 11:40-0400 Body mass index (BMI) [Ratio] 29.62 kg/m2 Minh Mazariegos Other [employer] Other 11-27-2021 11:40-0400 Body weight 80.74 kg Minh Mazariegos Other [employer] Other 09-04-2021 13:45-0500 Body temperature 98.4 [degF] MD Raji Haile Work Phone: [facility] 09-04-2021 13:45-0500 Diastolic blood pressure 76 mm[Hg] MD Raji Haile Work Phone: [facility] 09-04-2021 13:45-0500 Heart rate 49 /min MD Raji Haile Work Phone: [facility] 09-04-2021 13:45-0500 Respiratory rate 18 /min MD Raji Haile Work Phone: [facility] 09-04-2021 13:45-0500 SaO2% (BldA) [Mass fraction] 98 % MD Raji Haile Work Phone: [facility] 09-04-2021 13:45-0500 Systolic blood pressure 150 mm[Hg] MD Raji Haile Work Phone: [facility] Encounters Encounter Date Encounter Type Care Provider Facility Start: 09-29-2024 End: 09-29-2024 ambulatory SHAHBAZ ROLON Not Available Start: 09-15-2024 End: 09-15-2024 Refill Raji Haile MD Work Phone: [facility] Comment on above: Gastroesophageal ref lux disease without esophagitis Start: 09-14-2024 End: 09-14-2024 Office outpatient visit 15 minutes Raji Haile MD Work Phone: [facility] Comment on above: Gastroenteritis (Tomeka raji Dx); Encounter for screening mammogram for malignant neoplasm of breast Start: 09-14-2024 End: 09-14-2024 ambulatory RAJI HAILE Not Available Start: 09-14-2024 End: 09-14-2024 Bamboo flowsheet Raji Haile MD Work Phone: [facility] Start: 09-14-2024 End: 09-14-2024 Bamboo flowsheet Raji Haile MD Work Phone: [facility] Start: 09-02-2024 End: 09-02-2024 Bamboo flowsheet Raji Haile MD Work Phone: [facility] Start: 09-02-2024 End: 09-02-2024 Bamboo flowsheet Raji Haile MD Work Phone: [facility] Start: 09-02-2024 End: 09-02-2024 Office outpatient visit 25 minutes Raji Haile MD Work Phone: [facility] Comment on above: Chronic obstructive pulmonary disease with acute exacerbation (CMS/HCC) (Primary Dx) Start: 09-02-2024 End: 09-02-2024 ambulatory RAJI Elba HAILE Not Available Start: 07-12-2024 End: 07-12-2024 Telephone encounter Raji Haile MD Work Phone: [facility] Start: 07-09-2024 End: 07-09-2024 ambulatory RAJI Elba LAZARA Not Available Start: 06-24-2024 End: 06-24-2024 Telephone encounter Raji Haile MD Work Phone: [facility] Start: 06-22-2024 End: 06-22-2024 Bamboo flowsheet Raji Haile MD Work Phone: [facility] Start: 06-22-2024 End: 06-22-2024 Bamboo flowsheet Raji Haile MD Work Phone: [facility] Start: 06-22-2024 End: 06-22-2024 Office outpatient visit 15 minutes Raji Haile MD Work Phone: [facility] Comment on above: COPD exacerbation (C MS/HCC) (Primary Dx); Chest wall pain Start: 06-22-2024 End: 06-22-2024 Orders Only Raji Haile MD Work Phone: [facility] Comment on above: Abnormal chest x-ray (Primary Dx) Start: 06-08-2024 End: 06-08-2024 Bamboo flowsheet Raji Haile MD Work Phone: [facility] Start: 06-08-2024 End: 06-08-2024 Bamboo flowsheet Raji Haile MD Work Phone: [facility] Start: 06-08-2024 End: 06-08-2024 Office outpatient visit 15 minutes Raji Haile MD Work Phone: [facility] Comment on above: Encounter for immuni zation (Primary Dx); History of colon polyps; GERD without esophagitis; Essential hypertension (CMS/HCC) Start: 06-08-2024 End: 06-08-2024 ambulatory RAJI HAILE Not Available Start: 06-07-2024 End: 06-07-2024 Patient encounter procedure MD Raji Halie Work Phone: [facility] [place] Work Phone: Start: 06-07-2024 End: 06-07-2024 ambulatory MD Raji Haile Work Phone: [facility] Work Phone: Start: 06-01-2024 Non-patient / Non-visit MD Chaparrita Haile Work Phone: [facility] Work Phone: Start: 06-01-2024 End: 06-01-2024 Admission to same day surgery center MD Raji Haile Work Phone: [facility] Work Phone: Start: 06-01-2024 End: 06-01-2024 ambulatory MD Raji Haile Work Phone: [facility] Work Phone: Start: 05-17-2024 End: 05-28-2024 Telephone encounter Tracie Johnosn MD Work Phone: Colorectal Surgery Comment on above: Results Patient Question (Re sults) Results (Negative ge netic test results) Start: 05-12-2024 End: 05-12-2024 ambulatory MD Raji Haile Work Phone: [facility] Work Phone: Start: 05-12-2024 End: 05-12-2024 Patient encounter procedure MD Raji Haile Work Phone: [facility] Gastroenterology Work Phone: Start: 04-30-2024 End: 05-07-2024 Clinisync Result Encounter Generic External Data Provider [facility] External Department Unsolicited Start: 04-30-2024 End: 05-07-2024 Clinisync Result Encounter Generic External Data Provider [facility] External Department Unsolicited Start: 04-30-2024 End: 04-30-2024 ambulatory LORI AGUAYO Facility:[facility] Start: 04-27-2024 End: 04-27-2024 ambulatory Thania Wells MS Work Phone: [facility] Comment on above: Adenomatous polyposi s (Primary Dx); Family history of leukemia; Family history of breast cancer; Family history of colon cancer Start: 04-27-2024 End: 04-27-2024 Telemedicine consultation with patient Thania Wells MS Work Phone: [facility] Start: 04-22-2024 End: 04-22-2024 ambulatory MD Raji Haile Work Phone: [facility] Work Phone: Start: 04-22-2024 End: 04-22-2024 Patient encounter procedure MD Raji Haile Work Phone: [facility] Work Phone: Start: 03-25-2024 End: 03-25-2024 Patient encounter procedure MD Raji Haile Work Phone: [facility] [address] Work Phone: Start: 03-25-2024 End: 03-25-2024 ambulatory MD Raji Haile Work Phone: [facility] Work Phone: Start: 03-09-2024 End: 03-09-2024 ambulatory ALICE BALDERAS Not Available Start: 03-02-2024 End: 03-02-2024 ambulatory MD Raji Haile Work Phone: [facility] Work Phone: Start: 03-02-2024 End: 03-02-2024 Patient encounter procedure MD Raji Haile Work Phone: [facility] Work Phone: Start: 02-24-2024 End: 02-24-2024 ambulatory Raji Haile Facility:[facility] Start: 02-24-2024 End: 02-24-2024 ambulatory RAJI HAILE Not Available Start: 02-13-2024 End: 02-13-2024 ambulatory TRACIE JOHNSON Facility:[facility] Start: 02-02-2024 End: 02-02-2024 Admission to [place] [address] Work Phone: Pre Anesthesia Start: 02-02-2024 End: 02-02-2024 ambulatory RAJI HAILE Facility:[facility] Start: 02-02-2024 End: 02-02-2024 Anesthesia consultation [facility] Work Phone: Pre Anesthesia Comment on above: Preop examination (P rimary Dx); Smoker; Chronic obstructive pulmonary disease, unspecified COPD type (HCC); Gastroesophageal reflux disease without esophagitis; Primary hypertension; Obstructive sleep apnea syndrome Start: 02-02-2024 Encounter for other preprocedural examination TRACIE JOHNSON [facility] Start: 02-02-2024 End: 02-02-2024 Preprocedural examination done [facility] 4 Work Phone: [facility] Work Phone: Start: 01-30-2024 Telephone encounter Edgar Pina APRN.DIGITAL ACCOUNT MANAGER Work Phone: Pre Anesthesia Comment on above: Appointment Start: 01-27-2024 End: 01-27-2024 ambulatory TRACIE JOHNSON Facility:[facility] Start: 01-27-2024 End: 01-27-2024 Patient encounter procedure Tracie Johnson MD Work Phone: Colorectal Surgery Comment on above: Anal condyloma (Prim alexandra Dx); Encounter for screening for HIV Start: 01-20-2024 End: 01-20-2024 Patient encounter procedure MD Raji Haile Work Phone: [facility] Neurosurgery Work Phone: Start: 01-20-2024 End: 01-20-2024 ambulatory MD Raji Haile Work Phone: [facility] Work Phone: Start: 01-06-2024 Admission to same da y surgery center Tracie Johnson MD Work Phone: Colorectal Surgery Start: 01-06-2024 E-mail encounter fro m caregiver Tracie Johnson MD Work Phone: Colorectal Surgery Start: 01-06-2024 Telephone encounter Tracie lao MD Work Phone: Colorectal Surgery Comment on above: Appointment; Orders Start: 01-02-2024 Non-patient / Non-visit MD Chaparrita Haile Work Phone: [facility] Work Phone: Start: 12-30-2023 Non-patient / Non-visit MD Chaparrita Haile Work Phone: [facility] Gastroenterology Work Phone: Start: 12-30-2023 End: 12-30-2023 Admission to same day surgery center MD Raji Haile Work Phone: [facility] Work Phone: Start: 12-30-2023 End: 12-30-2023 ambulatory MD Raji Haile Work Phone: [facility] Work Phone: Start: 12-16-2023 Non-patient / Non-visit MD Chaparrita Haile Work Phone: [facility] Gastroenterology Work Phone: Start: 12-16-2023 End: 12-16-2023 Admission to same day surgery center MD Raji Haile Work Phone: [facility] Work Phone: Start: 12-16-2023 End: 12-16-2023 ambulatory MD Raji Haile Work Phone: [facility] Work Phone: Start: 11-27-2023 End: 11-27-2023 ambulatory [facility] Work Phone: Start: 11-27-2023 End: 11-27-2023 Patient encounter procedure [facility] Gastroenterology Work Phone: Start: 10-16-2023 End: 10-16-2023 Office outpatient visit 15 minutes Raji Haile MD Work Phone: [facility] Comment on above: COPD exacerbation (C MS/HCC) (Primary Dx); Major depressive disorder, recurrent, moderate (F33.1); Tobacco abuse Start: 10-16-2023 End: 10-16-2023 ambulatory RAJI HAILE Not Available Start: 10-16-2023 Bamboo flowsheet Raji Haiel MD Work Phone: [facility] Start: 10-16-2023 Bamboo flowsheet Raji Haile MD Work Phone: [facility] Start: 10-10-2023 Telephone encounter Raji pascual MD Work Phone: [facility] Start: 08-06-2023 Office outpatient vi sit 25 minutes Sanjuana Valentine [facility] Neurosurgery Start: 08-06-2023 End: 08-06-2023 ambulatory MD Raji Haile Work Phone: [facility] Work Phone: Start: 08-06-2023 End: 08-06-2023 Patient encounter procedure MD Raji Hiale Work Phone: [facility] [place] Work Phone: Start: 07-09-2023 End: 07-09-2023 ambulatory Bharat Valdivia Other [employer] Other Start: 07-09-2023 Telephone encounter Bharat driver [facility] Start: 07-02-2023 End: 07-02-2023 Patient encounter procedure MD Raji Haile Work Phone: [facility] [place] Work Phone: Start: 06-20-2023 Office outpatient vi sit 15 minutes Sanjuana Valentine [facility] Neurosurgery Start: 06-20-2023 End: 06-20-2023 ambulatory MD Raji Haile Work Phone: [facility] Work Phone: Start: 06-20-2023 End: 06-20-2023 Patient encounter procedure MD Raji Haile Work Phone: [facility] [place] Work Phone: Start: 05-29-2023 End: 05-29-2023 ambulatory Bharat Valdivia Other [place] Other Start: 05-29-2023 Telephone encounter Bharat driver [facility] Start: 04-07-2023 End: 04-07-2023 ambulatory Bharat Valdivia Other [employer] Other Start: 04-07-2023 Telephone encounter Bharat driver [facility] Start: 04-03-2023 End: 04-03-2023 ambulatory MD Raji Haile Work Phone: [facility] [employer] Work Phone: Start: 04-03-2023 End: 04-03-2023 Patient encounter procedure MD Raji Haile Work Phone: [facility] [place] Work Phone: Start: 04-02-2023 End: 04-02-2023 Admission to same day surgery center MD Raji Haile Work Phone: [facility] Work Phone: Start: 04-02-2023 End: 04-02-2023 ambulatory MD Raji Haile Work Phone: [facility] Work Phone: Start: 03-26-2023 End: 03-26-2023 ambulatory MD Raji Haile Work Phone: [facility] Work Phone: Start: 03-26-2023 End: 03-26-2023 Patient encounter procedure MD Raji Haile Work Phone: [facility]CT Scan [facility] [place] Work Phone: Start: 03-19-2023 End: 03-19-2023 ambulatory Bharat Valdivia Other [facility] [employer] Other Start: 03-19-2023 Office outpatient ne w 45 minutes Bharat Valdivia [facility] Gastroenterology Start: 01-21-2023 End: 01-21-2023 Patient encounter procedure MD Raji Haile Work Phone: [facility] [place] Work Phone: Start: 10-16-2022 End: 10-17-[address] EDI ADAMS Facility:[facility] Start: 07-30-2022 Office outpatient vi sit [address] [facility] Neurosurgery Start: 07-30-2022 End: 07-30-2022 ambulatory MD Raji Haile Work Phone: [facility] [employer] Other Start: 07-30-2022 End: 07-30-2022 Patient encounter procedure MD Raji Haile Work Phone: [facility] Start: 04-23-2022 End: 04-23-2022 ambulatory Minh Mazariegos Other [employer] Other Start: 04-23-2022 Postop follow up vis it related to original px Minh Mazariegos [facility] Neurosurgery Start: 04-23-2022 End: 04-23-2022 Patient encounter procedure MD Raji Haile Work Phone: [facility] Start: 04-18-2022 End: 04-19-2022 ambulatory RACH SEN Facility: Start: 02-28-2022 End: 02-28-2022 ambulatory Minh Mazariegos Other [employer] Other Start: 02-28-2022 Postop follow up vis it related to original px Minh Mazariegos [facility] Start: 02-28-2022 End: 02-28-2022 Patient encounter procedure MD Raji Haile Work Phone: [facility] Start: 01-23-2022 Admission to [facility] center Minh Mazariegos [facility] Start: 01-23-2022 End: 01-23-2022 ambulatory Minh Mazariegos Other [employer] Other Start: 01-23-2022 End: 01-25-2022 Evaluation and management of inpatient MD Raji Haile Work Phone: [facility] [place] [facility] Start: 01-21-2022 End: 01-21-2022 Patient encounter procedure MD Raji Haile Work Phone: [facility]-Pre-Surgical Testing Start: 01-09-2022 End: 01-09-2022 Patient encounter procedure MD Raji Haile Work Phone: [facility]-Surgical Testing Start: 12-18-2021 End: 12-18-2021 ambulatory Minh Mazariegos Other [employer] Other Start: 12-18-2021 Office outpatient vi sit [address] [facility] Neurosurgery Start: 12-10-2021 End: 12-10-2021 Patient encounter procedure MD Raji Haile Work Phone: [facility]XRay [facility] [place] Start: 11-27-2021 End: 11-27-2021 ambulatory Minh Bryant Other [facility] [employer] Other Start: 11-27-2021 Office outpatient ne w [address] [facility] Neurosurgery Start: 09-04-2021 End: 09-04-2021 Discharged Recurring MD Raji Haile Work Phone: [facility]-Infusion Therapy - O/P Procedures Date Procedure Procedure Detail Performing Clinician Start: 06-07-2024 US scan of aorta MD Raji Haile Work Phone: Start: 06-01-2024 End: 06-01-2024 Colonoscopy MD Raji Haile Work Phone: Start: 04-30-2024 MISC SEND OUT TST 1 Generic External Data Provider Start: 03-25-2024 MRI of cervical spine without contrast MD Raji Haile Work Phone: Start: 02-24-2024 Lipid 1996 panel - Serum or Plasma Thania Wells MS Work Phone: Start: 01-20-2024 X-ray of lumbar spine, four views MD Chaparrita Haile Work Phone: Start: 12-30-2023 Screening colonoscopy MD Raji Haile Work Phone: Start: 12-30-2023 Colonoscopy Generic Provider Start: 12-16-2023 Screening colonoscopy MD Raji Haile Work Phone: Start: 09-10-2023 Mammography Raji Haile MD Work Phone: Start: 07-02-2023 US scan of aorta MD Raji Haile Work Phone: Start: 06-20-2023 X-ray of cervical spine MD Raji Haile Work Phone: Start: 06-20-2023 X-ray of lumbar spine, six views including bending views MD Raji Haile Work Phone: Start: 04-03-2023 Lactoferrin measurement MD Raji Haile Work Phone: Start: 04-02-2023 Esophagogastroduodenoscopy MD Raji Haile Work Phone: Start: 03-26-2023 Computed tomography of abdomen and pelvis with contrast MD Raji Haile Work Phone: Start: 01-21-2023 X-ray of lumbar spine, four views MD Chaparrita Haile Work Phone: Start: 07-30-2022 X-ray of lumbar spine, four views MD Chaparrita Haile Work Phone: Start: 04-23-2022 X-ray of lumbar spine, four views MD Chaparrita Haile Work Phone: Start: 02-28-2022 X-ray of lumbar spine, two or three views MD Raji Haile Work Phone: Start: 01-23-2022 OR XLIF Lumbar Lateral Interbody Fusion (Not Applicable) MD Raji Haile Work Phone: Start: 01-23-2022 X-ray of lumbar spine, two or three views MD Raji Haile Work Phone: Start: 12-10-2021 X-ray of cervical spine MD Raji Haile Work Phone: Start: 12-10-2021 X-ray of lumbar spine, six views including bending views MD Raji Haile Work Phone: Start: 03-06-2020 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 Raji Haile MD Work Phone: Start: 09-22-2015 Colonoscopy Raji Haile MD Work Phone: Plan of Treatment Date Care Activity Detail Author Start: 06-01-2034 Screening for malign ant neoplasm of colon [facility] Start: 12-29-2033 Screening for malign ant neoplasm of colon [facility] Start: 06-26-2032 Urine microalbumin profile DTaP,Tdap,Td Vaccine (3 - Td or Tdap) [facility] Start: 02-23-2029 Lipid panel Lipid Screening [facility] Start: 02-01-2027 Diabetes Screening Diabetes Screenin g [facility] Start: 11-06-2025 Diabetes Screening Diabetes Screenin g [facility] Start: 09-22-2025 Screening for malign ant neoplasm of colon [facility] Start: 09-27-2024 End: 09-27-2024 Professional / ancillary services management 09/27/2024 10:30 AM EST Ancillary Procedure [facility] [address] [place] [phone] [facility] [address] Start: 09-14-2024 End: 09-14-2024 Patient encounter procedure 09/14/2024 2:20 PM EST Office Visit [facility] [address] [facility] [place] [phone] Raji Haile MD [address] [place] [address] Arrived [facility] Comment on above: Arrived Start: 09-14-2024 End: 11-12-2025 DBT Breast - bilateral screening Bilateral screening mammogram with tomosynthesis Imaging Routine Encounter for screening mammogram for malignant neoplasm of breast Expected: 09/14/2024, Expires: 11/12/2025 [facility] Work Phone: Comment on above: Expected: 09/14/2024 , Expires: 11/12/2025 Start: 09-10-2024 Screening for malign ant neoplasm of breast [facility] Start: 09-02-2024 End: 09-02-2024 Patient encounter procedure 09/02/2024 8:40 AM EST Office Visit [facility] [address] [facility] [phone] Raji Haile MD [address] [facility] [address] Arrived [facility] Comment on above: Arrived Start: 08-26-2024 End: 08-26-2024 Patient encounter procedure 08/26/2024 8:00 AM EST Office Visit [facility] [address] [facility] [place] [phone] Raji Haile MD [address] [facility] [place] [address] [facility] Start: 06-22-2024 End: 06-22-2025 CTA Chest vessels WO and W contrast IV CT chest angiogram w and/or wo IV contrast Imaging Routine Abnormal chest x-ray Expected: 06/22/2024, Expires: 06/22/2025 [facility] Work Phone: Comment on above: Expected: 06/22/2024 , Expires: 06/22/2025 Start: 06-22-2024 End: 06-22-2024 Patient encounter procedure 06/22/2024 10:40 AM EDT Office Visit [facility] [address] [facility] [place] [phone] Raji Haile MD [address] [facility] [place] [address] Arrived [facility] Comment on above: Arrived Start: 06-08-2024 End: 06-08-2024 Patient encounter procedure 06/08/2024 11:20 AM EDT Office Visit [facility] [address] [facility] [place] [address] Raji Haile MD [address] [place] [address] Arrived [facility] Comment on above: Arrived Start: 06-01-2024 [facility] Start: 05-02-2024 Covid-19 Vaccine ( season) Covid-19 Vaccine ( season) [facility] Start: 05-02-2024 Influenza vaccination [facility] Start: 04-30-2024 End: 04-30-2024 ambulatory 04/30/2024 10:30 AM EDT Results Only [place] [facility] [address] [place] [address] [facility] Start: 04-27-2024 End: 07-27-2024 [facility] [place]ST 1 MISC SEND OUT TST 1 Lab Routine Adenomatous polyposis Family history of leukemia Family history of breast cancer Family history of colon cancer Expected: 04/27/2024, Expires: 07/27/2024 [facility] Work Phone: Comment on above: Expected: 04/27/2024 , Expires: 07/27/2024 Start: 04-22-2024 Patient referral [facility] Work Phone: Start: 03-12-2024 Medicare Annual Well ness (AWV) Medicare Annual Wellness (AWV) [facility] Start: 02-24-2024 End: 02-24-2024 Patient encounter procedure 02/24/2024 8:45 AM EDT Office Visit [facility] [address] [facility] [place] [phone] Alice Balderas NP [address] [facility] [address] [place] [address] [facility] Start: 02-19-2024 End: 02-19-2024 Patient encounter procedure 02/19/2024 8:40 AM EDT Office Visit [facility] [address] [facility] [place] [address] Raji Haile MD [address] [facility] [place] [address] [facility] Start: 02-13-2024 End: 02-13-2024 Admission to same day surgery center 02/13/2024 1:15 PM EDT - 02/13/2024 2:15 PM EDT Surgery [facility] [place] [address] [place] [address] [place] [address] [place] [id number] EXAM UNDER ANESTHESIA RECTAL [facility] Comment on above: EXAM UNDER ANESTHESI A RECTAL Start: 02-13-2024 End: 02-13-2024 Anrct xm surg req anes general spi/edrl dx EXAM UNDER ANESTHESIA RECTAL Anal lesion 02/13/2024 1:15 PM EDT [facility] Start: 02-13-2024 End: 02-13-2024 Dstrj lesion anus simple surg excision SURGICAL EXCISION LESION ANAL Anal lesion 02/13/2024 1:15 PM EDT [facility] Start: 02-13-2024 Subsequent hospital visit by physician 02/13/2024 1:15 PM EDT Hospital Encounter [address] [place] [address] [place] [address] [place] [address] Anal lesion [K62.9] [facility] Comment on above: Anal lesion [K62.9] Start: 02-07-2024 Screening for malign ant neoplasm of lung Lung Cancer Screening [facility] Start: 02-03-2024 End: 05-04-2024 HIV 1+2 Ab [Presence] in Serum or Plasma by Immunoassay HIV 1/2 COMBO WITH REFLEX TO DIFFERENTIATION Lab Routine Anal condyloma Encounter for screening for HIV Expected: 02/03/2024, Expires: 05/04/2024 [facility] Work Phone: Comment on above: Expected: 02/03/2024 , Expires: 05/04/2024 Start: 02-03-2024 End: 02-03-2024 ambulatory 02/03/2024 8:00 AM EDT Results Only [facility] [address] [place] [address] [facility] Start: 02-02-2024 End: 02-02-2024 Anesthesia consultation 02/02/2024 3:00 PM EDT PAT Pre Anesthesia [address] [place] [address] unable to do vv Pre Anesthesia Comment on above: unable to do vv Start: 02-02-2024 End: 05-03-2024 Basic metabolic 2000 panel - Serum or Plasma [facility] Work Phone: Comment on above: Expected: 02/02/2024 , Expires: 05/03/2024 Start: 01-20-2024 Patient referral [facility] Work Phone: Start: 01-20-2024 X-ray of lumbar spin e, four views XR lumbar spine AP/LAT/FLX/EXT [facility] Start: 01-02-2024 End: 01-02-2024 Patient encounter procedure 01/02/2024 10:00 AM EDT Office Visit [facility] [address] [place] [address] Yolanda Daniels, DO [address] [place] [address] [facility] Start: 12-30-2023 [facility] Start: 12-16-2023 [facility] Start: 10-30-2023 Covid-19 Vaccine () Covid-19 Vaccine () [facility] Start: 10-16-2023 End: 10-16-2023 Patient encounter procedure 10/16/2023 2:40 PM EST Office Visit [facility] [address] [place] [address] Raji Haile MD [address] [place] [address] Arrived [facility] Comment on above: Arrived Start: 09-01-2023 Advance Directive Discussion Advance Directive Discussion [facility] Start: 09-01-2023 Behavioral Health Screening Behavioral Health Screening [facility] Start: 08-06-2023 [facility] Start: 05-02-2023 Covid-19 Vaccine () Covid-19 Vaccine () [facility] Start: 04-02-2023 [facility] Start: 01-23-2022 Fusion of Lumbar Vertebral Joint with Interbody Fusion Device, Anterior Approach, Anterior Column, Open Approach [facility] Start: 01-23-2022 Fusion of Lumbar Vertebral Joint with Synthetic Substitute, Posterior Approach, Posterior Column, Open Approach [facility] Start: 01-23-2022 Removal of Synthetic Substitute from Lumbar Vertebral Joint, Open Approach Removal of Synthetic Substitute from Lumbar Vertebral Joint, Open Approach [facility] Start: 11-25-2019 Pneumococcal Vaccine : 65+ (1 of 1 - PCV) Pneumococcal Vaccine: 65+ (1 of 1 - PCV) [facility] Start: 11-25-2019 Screening for osteoporosis Bone Density Screening [facility] Start: 2014 RSV Vaccine (1 - 1-d ose 60+ series) RSV Vaccine (1 - 1-dose 60+ series) [facility] Start: 2004 Shingrix Vaccine (1 of 2) Lara grix Vaccine (1 of 2) [facility] Start: 11-25-1999 Diabetes Screening Diabetes Screenin g [facility] Start: 11-25-1999 Lipid panel Lipid Screening [facility] Start: 11-25-1999 Screening for malign ant neoplasm of colon [facility] Start: 1994 Screening for malign ant neoplasm of breast Mammogram Screening [facility] Start: 1984 Zoledronic acid therapy Alpha- 1 Antitrypsin Deficiency Screening [facility] Start: 1973 Urine microalbumin profile DTaP,Tdap,Td Vaccine (1 - Tdap) [facility] Start: 1972 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 Annual PCP Team Chronic Disease Visit [facility] Start: 1972 Anxiety Screening Anxiety Screening [facility] Start: 1972 BP Controlled (<130/80) BP Controlle d (<130/80) [facility] Start: 1972 Depression Screening Depression Scre ening [facility] Start: 1972 Hepatitis C screening Hepatitis C Sc daniel [facility] Start: 1972 Spirometry Spirometry [facility] Start: 1954 Screening for malign ant neoplasm of colon [facility] Alanine aminotransfe rase [Enzymatic activity/volume] in Serum or Plasma by No addition of P-5'-P [facility] Work Phone: Albumin [Mass/volume ] in Serum or Plasma [facility] Work Phone: Albumin/Globulin ratio [facility] Work Phone: Alkaline phosphatase [Enzymatic activity/volume] in Serum or Plasma [facility] Work Phone: Aspartate aminotransferase [Enzymatic activity/volume] in Serum or Plasma [facility] Work Phone: Basophil count [facility] Work Phone: Basophil percent differential count [facility] Work Phone: Bilirubin.total [Mass/volume] in Serum or Plasma [facility] Work Phone: Calcium [Mass/volume ] in Serum or Plasma [facility] Work Phone: Carbon dioxide, tota l [Moles/volume] in Serum or Plasma [facility] Work Phone: Chloride [Moles/volu me] in Serum or Plasma [facility] Work Phone: Creatinine and Glome rular filtration rate.predicted panel - Serum, Plasma or Blood [facility] Work Phone: Elastase.pancreatic [Mass/mass] in Stool [facility] Eosinophil percent differential count [facility] Work Phone: Eosinophils [#/volum e] in Blood [facility] Work Phone: Erythrocyte mean corpuscular volume determination [facility] Work Phone: Erythrocytes [#/volu me] in Blood [facility] Work Phone: Globulin [Mass/volum e] in Serum [facility] Work Phone: Glucose [Mass/volume ] in Serum or Plasma [facility] Work Phone: Hematocrit [Volume Fraction] of Blood [facility] Work Phone: Hemoglobin [Mass/vol ume] in Blood [facility] Work Phone: Hemoglobin distribut ion, width determination [facility] Work Phone: Homogenous nuclear A b pattern [Titer] in Serum [facility] Leukocytes [#/volume ] in Blood [facility] Work Phone: Lymphocyte count [facility] Work Phone: Lymphocyte percent differential count [facility] Work Phone: Mean corpuscular hemoglobin concentration determination [facility] Work Phone: Mean corpuscular hemoglobin determination [facility] Work Phone: Measurement of renal function [facility] Work Phone: Monocyte count [facility] Work Phone: Monocyte percent differential count [facility] Work Phone: MR Cervical spine WO contrast [facility] Neutrophil count [facility] Work Phone: Neutrophil percent differential count [facility] Work Phone: Nuclear Ab [Titer] i n Serum [facility] Patient Education [facility] Work Phone: Patient referral [facility] Work Phone: Platelet mean volume determination [facility] Work Phone: Platelets [#/volume] in Blood [facility] Work Phone: Potassium [Moles/vol ume] in Serum or Plasma [facility] Work Phone: Protein [Mass/volume ] in Serum or Plasma [facility] Work Phone: Rheumatoid factor [Units/volume] in Serum or Plasma [facility] Sodium [Moles/volume ] in Serum or Plasma [facility] Work Phone: Urea nitrogen [Mass/volume] in Serum or Plasma [facility] Work Phone: Immunizations Immunization Date Immunization Notes Care Provider Tomasa pérez 06-08-2024 influenza, high dose seasonal, preservative-free Raji Haile MD Work Phone: [facility] 07-16-2023 Influenza, Seasonal, Quadrivalent, Adjuvanted Raji Haile MD Work Phone: [facility] 07-16-2023 influenza virus vacc ine, unspecified formulation Thania Wells MS Work Phone: [facility] 06-30-2023 Pneumococcal Conjuga te PCV 20 Raji Haile MD Work Phone: [facility] Work Phone: 06-30-2023 RSV, recombinant, protein subunit RSVpreF, adjuvant reconstitu, 120mcg/0.5mL, PF (Arexvy) Raji Haile MD Work Phone: [facility] 06-30-2023 SARS-COV-2 (COVID-19 ) vaccine, mRNA, spike protein, LNP, PF, 50 mcg/0.5 mL Raji Haile MD Work Phone: [facility] 06-26-2022 Influenza, Seasonal, Quadrivalent, Adjuvanted Raji Haile MD Work Phone: [facility] 06-26-2022 Moderna SARS-CoV-2 50mcg/0.5mL Booster Raji Haile MD Work Phone: [facility] 06-26-2022 Pneumococcal Conjuga te PCV 20 Raji Haile MD Work Phone: [facility] 06-26-2022 SARS-COV-2 (COVID-19 ) vaccine, mRNA, spike protein, LNP, bivalent, PF Raji Haile MD Work Phone: [facility] 06-26-2022 tetanus toxoid, redu mavis diphtheria toxoid, and acellular pertussis vaccine, adsorbed Raji Haile MD Work Phone: [facility] 05-29-2021 COVID-19 mRNA, Comir edgar ([employer]) MD Raji Haile Work Phone: [facility] 05-29-2021 Influenza, High-dose Seasonal, Quadrivalent, Preservative Free Raji Haile MD Work Phone: [facility] 10-31-2020 COVID-19 mRNA, Comdaniela hernández (Pfizer) MD Raji Haile Work Phone: [facility] 10-30-2020 Pfizer Purple Cap SARS-CoV-2 Vaccination Raji Haile MD Work Phone: [facility] 10-10-2020 COVID-19 mRNA, Comdaniela hernández (Pfizer) MD Raji Haile Work Phone: [facility] 10-09-2020 Pfizer Purple Cap SARS-CoV-2 Vaccination Raji Haiel MD Work Phone: [facility] 05-11-2020 influenza, high dose seasonal, preservative-free Raji Haile MD Work Phone: [facility] 05-11-2020 Influenza, High-dose Seasonal, Quadrivalent, Preservative Free Raji Haile MD Work Phone: [facility] 05-11-2020 pneumococcal polysaccharide vaccine, 23 valent Raji Haile MD Work Phone: [facility] 06-09-2019 Seasonal, quadrivale nt, recombinant, injectable influenza vaccine, preservative free Raji Haile MD Work Phone: [facility] 03-08-2019 zoster vaccine recombinant Raji Haile MD Work Phone: [facility] 12-18-2018 zoster vaccine recombinant Raji Haile MD Work Phone: [facility] 06-29-2018 influenza, injectabl e, quadrivalent, contains preservative Raji Haile MD Work Phone: [facility] 06-29-2018 influenza, injectabl e, quadrivalent, preservative free Raji Haile MD Work Phone: [facility] 06-25-2017 influenza, injectabl e, quadrivalent, preservative free Raji Haile MD Work Phone: [facility] 06-25-2017 influenza, seasonal, injectable Raji Haile MD Work Phone: [facility] 03-22-2017 tetanus toxoid, redu mavis diphtheria toxoid, and acellular pertussis vaccine, adsorbed Raji Haile MD Work Phone: [facility] 05-31-2016 influenza, injectabl e, quadrivalent, preservative free Raji Haile MD Work Phone: [facility] 07-24-2015 pneumococcal conjuga te vaccine, 13 valent Raji Haile MD Work Phone: [facility] 06-21-2015 influenza, injectabl e, quadrivalent, preservative free Raji Haile MD Work Phone: [facility] 06-03-2012 tetanus and diphther ia toxoids, adsorbed, preservative free, for adult use (2 Lf of tetanus toxoid and 2 Lf of diphtheria toxoid) Raji Haile MD Work Phone: [facility] 04-30-2012 pneumococcal polysaccharide vaccine, 23 valent Raji Haile MD Work Phone: [facility] 04-30-2012 seasonal influenza, intradermal, preservative free Raji Haile MD Work Phone: [facility] 08-29-2011 seasonal influenza, intradermal, preservative free Raji Haile MD Work Phone: [facility] 07-16-2010 seasonal influenza, intradermal, preservative free Raji Haile MD Work Phone: [facility] Payers Date Payer Category Payer Medicaid [place]ICA[place] [id number] 2024 Worker's Compensation [id number] 2024 Unknown [id number] 2023 Self-pay [id number] 2023 Private Health Insurance [id number] 2023 Private Health Insurance [id number] 2020 Medicaid [id number] 2017 Private Health Insurance [id number] 2008 Medicare [id number] 1954 Unknown [id number] 2.16.840.1.830109.3.579.2 .593 1954 Unknown [id number] 2.16.840.1.639268.3.579.2 .593 1954 Unknown [id number] 2.16.840.1.319268.3.579.2 .718 1954 Unknown [id number] 2.16.840.1.377366.3.579.2 .1259 1954 Unknown [id number] 2.16.840.1.835934.3.579.2 .1259 1954 Unknown [id number] 2.16.840.1.208432.3.579.2 .1259 1954 Unknown [id number] 2.16.840.1.922166.3.579.2 .1259 1954 Unknown [id number] 2.840.1.905406.3.579.2 .1258 1954 Unknown [id number] 2.840.1.350376.3.579.2 .1258 1954 Unknown [id number] 2.840.1.911688.3.579.2 .1258 1954 Unknown [id number] 2.840.1.149843.3.579.2 .1258 1954 Unknown [id number] 2.0.1.336139.3.579.2 .1258 1954 Unknown [id number] .0.1.368851.3.579.2 .1258 1954 Unknown [id number] .0.1.295319.3.579.2 .1258 1954 Unknown [id number] .840.1.219142.3.579.2 .1258 1954 Unknown [id number] .0.1.173138.3.579.2 .1258 Medicare [id number] Medicare Medicare [id number] Private Health Insurance [facility] [id number] Unknown [id number] Unknown [id number] 2.840.1.918321.3.579.2 .531 Unknown [id number] 2.840.1.802447.3.579.2 .531 Unknown [id number] 2.840.1.017197.3.579.2 .531 Unknown [id number] 2.16.840.1.085137.3.579.2 .531 Unknown [id number] 2.16.840.1.254227.3.579.2 .531 Unknown [id number] 2.16.840.1.380793.3.579.2 .531 Social History Date Type Detail Facility Start: 07-14-2017 End: 06-01-2024 Tobacco smoking status PAIS Smoker (finding) [facility] Start: 1955 Sex Assigned At Female [facility] Start: 01-27-2023 End: 02-24-2024 Sex Assigned At [facility] Start: 11-04-1972 End: 06-08-2024 Tobacco smoking status PAIS Smokes tobacco daily [facility] Start: 11-04-1972 End: 11-04-2022 History of tobacco use Cigarette Smoker [facility] Start: 01-27-2023 End: 07-02-2023 Cigarettes smoked current (pack per day) - Reported 1 [facility] Start: 07-02-2023 End: 06-08-2024 Tobacco use and exposure Smokeless tobacco non-user [facility] Start: 08-19-2023 End: 09-14-2024 Alcohol intake Lifetime non-drinker (finding) [facility] Within the last year , have you been afraid of your partner or ex-partner? No [facility] Are you now , , , , never or living with a partner? [facility] How often to you hav e a drink containing alcohol? Never [facility] How many standard drinks containing alcohol do you have on a typical day? Patient does not drink [facility] How hard is it for y ou to pay for the very basics like food, housing, medical care, and heating Not very hard [facility] Do you feel stress - tense, restless, nervous, or anxious, or unable to sleep at night because your mind is troubled all the time - these days [OSQ] Only a little [facility] (I/We) worried wheth er (my/our) food would run out before (I/we) got money to buy more. Never true [facility] Start: 01-24-2023 Alcohol Comment Caffeine: 2-3 cups/day coffee [facility] Start: 11-13-2022 Gender identity Identifies as female gender (finding) [facility] Start: 01-27-2023 Sexual orientation Heterosexual (finding) [facility] Start: 05-16-2010 Alcohol intake Current drinker of alcohol (finding) [facility] Start: 1955 Sex Assigned At Not on file [facility] Start: 01-27-2024 End: 04-27-2024 Alcohol intake Ex-drinker (finding) [facility] Start: 06-08-2024 Alcohol Comment Caffeine: 4 cups/day coffee [facility] Medical Equipment Procedure Code Equipment Code Equipment Origin al Text Equipment Identifier Dates Fusion, spine, lumbar, XLIF STRATOFUSE DBM 10CC FDA Start: 01-23-2022 Fusion, spine, lumbar, XLIF Orthopaedic bone screw, non-bioabsorbable, non-sterile [id number] FDA Start: 01-23-2022 Fusion, spine, lumbar, XLIF Bone-screw internal spinal fixation system, non-sterile [id number] FDA Start: 01-23-2022 Fusion, spine, lumbar, XLIF Spinal fusion graft kit [id number] FDA Start: 01-23-2022 Fusion, spine, lumbar, XLIF Metallic spinal fusion cage, non-sterile [id number] FDA Start: 01-23-2022 Fusion, spine, lumbar, XLIF Bone-screw internal spinal fixation system, non-sterile [id number] FDA Start: 01-23-2022 Fusion, spine, lumbar, XLIF Orthopaedic bone screw, non-bioabsorbable, non-sterile [id number] FDA Start: 01-23-2022 Fusion, spine, lumbar, XLIF STRATOFUSE DBM 10CC FDA Start: 01-23-2022 Fusion, spine, lumbar, XLIF STRATOFUSE DBM 10CC FDA Start: 01-23-2022 Fusion, spine, lumbar, XLIF STRATOFUSE DBM 10CC FDA Start: 01-23-2022 Fusion, spine, lumbar, XLIF STRATOFUSE DBM 10CC FDA Start: 01-23-2022 Fusion, spine, lumbar, XLIF STRATOFUSE DBM 10CC FDA Start: 01-23-2022 Fusion, spine, lumbar, XLIF STRATOFUSE DBM 10CC FDA Start: 01-23-2022 Fusion, spine, lumbar, XLIF STRATOFUSE DBM 10CC FDA Start: 01-23-2022 Fusion, spine, lumbar, XLIF STRATOFUSE DBM 10CC FDA Start: 01-23-2022 Fusion, spine, lumbar, XLIF STRATOFUSE DBM 10CC FDA Start: 01-23-2022 Fusion, spine, lumbar, XLIF STRATOFUSE DBM 10CC FDA Start: 01-23-2022 Fusion, spine, lumbar, XLIF STRATOFUSE DBM 10CC FDA Start: 01-23-2022 Fusion, spine, lumbar, XLIF STRATOFUSE DBM 10CC FDA Start: 01-23-2022 Fusion, spine, lumbar, XLIF STRATOFUSE DBM 10CC FDA Start: 01-23-2022 Fusion, spine, lumbar, XLIF STRATOFUSE DBM 10CC FDA Start: 01-23-2022 Fusion, spine, lumbar, XLIF STRATOFUSE DBM 10CC FDA Start: 01-23-2022 Fusion, spine, lumbar, XLIF STRATOFUSE DBM 10CC FDA Start: 01-23-2022 Fusion, spine, lumbar, XLIF STRATOFUSE DBM 10CC FDA Start: 01-23-2022 Fusion, spine, lumbar, XLIF STRATOFUSE DBM 10CC FDA Start: 01-23-2022 Fusion, spine, lumbar, XLIF STRATOFUSE DBM 10CC FDA Start: 01-23-2022 BONE 7MM DUO FDA Start: 07-14-2017 PLATE NUVASIVE 1 LEVEL CERVICA FDA Start: 07-14-2017 SCREW NUVASIVE 4 .0 X 13MM SELF FDA Start: 07-14-2017 SCREW NUVASIVE 4 .0 X 13MM SELF FDA Start: 07-14-2017 SCREW NUVASIVE 4 .0 X 13MM SELF FDA Start: 07-14-2017 BONE 7MM DUO FDA Start: 07-14-2017 PLATE NUVASIVE 1 LEVEL CERVICA FDA Start: 07-14-2017 SCREW NUVASIVE 4 .0 X 13MM SELF FDA Start: 07-14-2017 SCREW NUVASIVE 4 .0 X 13MM SELF FDA Start: 07-14-2017 SCREW NUVASIVE 4 .0 X 13MM SELF FDA Start: 07-14-2017 BONE 7MM DUO FDA Start: 07-14-2017 PLATE NUVASIVE 1 LEVEL CERVICA FDA Start: 07-14-2017 SCREW NUVASIVE 4 .0 X 13MM SELF FDA Start: 07-14-2017 SCREW NUVASIVE 4 .0 X 13MM SELF FDA Start: 07-14-2017 SCREW NUVASIVE 4 .0 X 13MM SELF FDA Start: 07-14-2017 BONE 7MM DUO FDA Start: 07-14-2017 PLATE NUVASIVE 1 LEVEL CERVICA FDA Start: 07-14-2017 SCREW NUVASIVE 4 .0 X 13MM SELF FDA Start: 07-14-2017 SCREW NUVASIVE 4 .0 X 13MM SELF FDA Start: 07-14-2017 SCREW NUVASIVE 4 .0 X 13MM SELF FDA Start: 07-14-2017 BONE 7MM DUO FDA Start: 07-14-2017 PLATE NUVASIVE 1 LEVEL CERVICA FDA Start: 07-14-2017 SCREW NUVASIVE 4 .0 X 13MM SELF FDA Start: 07-14-2017 SCREW NUVASIVE 4 .0 X 13MM SELF FDA Start: 07-14-2017 SCREW NUVASIVE 4 .0 X 13MM SELF FDA Start: 07-14-2017 BONE 7MM DUO FDA Start: 07-14-2017 PLATE NUVASIVE 1 LEVEL CERVICA FDA Start: 07-14-2017 SCREW NUVASIVE 4 .0 X 13MM SELF FDA Start: 07-14-2017 SCREW NUVASIVE 4 .0 X 13MM SELF FDA Start: 07-14-2017 SCREW NUVASIVE 4 .0 X 13MM SELF FDA Start: 07-14-2017 BONE 7MM DUO FDA Start: 07-14-2017 PLATE NUVASIVE 1 LEVEL CERVICA FDA Start: 07-14-2017 SCREW NUVASIVE 4 .0 X 13MM SELF FDA Start: 07-14-2017 SCREW NUVASIVE 4 .0 X 13MM SELF FDA Start: 07-14-2017 SCREW NUVASIVE 4 .0 X 13MM SELF FDA Start: 07-14-2017 BONE 7MM DUO FDA Start: 07-14-2017 PLATE NUVASIVE 1 LEVEL CERVICA FDA Start: 07-14-2017 SCREW NUVASIVE 4 .0 X 13MM SELF FDA Start: 07-14-2017 SCREW NUVASIVE 4 .0 X 13MM SELF FDA Start: 07-14-2017 SCREW NUVASIVE 4 .0 X 13MM SELF FDA Start: 07-14-2017 BONE 7MM DUO FDA Start: 07-14-2017 PLATE NUVASIVE 1 LEVEL CERVICA FDA Start: 07-14-2017 SCREW NUVASIVE 4 .0 X 13MM SELF FDA Start: 07-14-2017 SCREW NUVASIVE 4 .0 X 13MM SELF FDA Start: 07-14-2017 SCREW NUVASIVE 4 .0 X 13MM SELF FDA Start: 07-14-2017 BONE 7MM DUO FDA Start: 07-14-2017 PLATE NUVASIVE 1 LEVEL CERVICA FDA Start: 07-14-2017 SCREW NUVASIVE 4 .0 X 13MM SELF FDA Start: 07-14-2017 SCREW NUVASIVE 4 .0 X 13MM SELF FDA Start: 07-14-2017 SCREW NUVASIVE 4 .0 X 13MM SELF FDA Start: 07-14-2017 BONE 7MM DUO FDA Start: 07-14-2017 PLATE NUVASIVE 1 LEVEL CERVICA FDA Start: 07-14-2017 SCREW NUVASIVE 4 .0 X 13MM SELF FDA Start: 07-14-2017 SCREW NUVASIVE 4 .0 X 13MM SELF FDA Start: 07-14-2017 SCREW NUVASIVE 4 .0 X 13MM SELF FDA Start: 07-14-2017 BONE 7MM DUO FDA Start: 07-14-2017 PLATE NUVASIVE 1 LEVEL CERVICA FDA Start: 07-14-2017 SCREW NUVASIVE 4 .0 X 13MM SELF FDA Start: 07-14-2017 SCREW NUVASIVE 4 .0 X 13MM SELF FDA Start: 07-14-2017 SCREW NUVASIVE 4 .0 X 13MM SELF FDA Start: 07-14-2017 BONE 7MM DUO FDA Start: 07-14-2017 PLATE NUVASIVE 1 LEVEL CERVICA FDA Start: 07-14-2017 SCREW NUVASIVE 4 .0 X 13MM SELF FDA Start: 07-14-2017 SCREW NUVASIVE 4 .0 X 13MM SELF FDA Start: 07-14-2017 SCREW NUVASIVE 4 .0 X 13MM SELF FDA Start: 07-14-2017 BONE 7MM DUO FDA Start: 07-14-2017 PLATE NUVASIVE 1 LEVEL CERVICA FDA Start: 07-14-2017 SCREW NUVASIVE 4 .0 X 13MM SELF FDA Start: 07-14-2017 SCREW NUVASIVE 4 .0 X 13MM SELF FDA Start: 07-14-2017 SCREW NUVASIVE 4 .0 X 13MM SELF FDA Start: 07-14-2017 BONE 7MM DUO FDA Start: 07-14-2017 PLATE NUVASIVE 1 LEVEL CERVICA FDA Start: 07-14-2017 SCREW NUVASIVE 4 .0 X 13MM SELF FDA Start: 07-14-2017 SCREW NUVASIVE 4 .0 X 13MM SELF FDA Start: 07-14-2017 SCREW NUVASIVE 4 .0 X 13MM SELF FDA Start: 07-14-2017 BONE 7MM DUO FDA Start: 07-14-2017 PLATE NUVASIVE 1 LEVEL CERVICA FDA Start: 07-14-2017 SCREW NUVASIVE 4 .0 X 13MM SELF FDA Start: 07-14-2017 SCREW NUVASIVE 4 .0 X 13MM SELF FDA Start: 07-14-2017 SCREW NUVASIVE 4 .0 X 13MM SELF FDA Start: 07-14-2017 Lens Iol 1pc Shu Iq [id number] - [id number] Start: 05-15-2010 BONE 7MM DUO FDA Start: 07-14-2017 PLATE NUVASIVE 1 LEVEL CERVICA FDA Start: 07-14-2017 SCREW NUVASIVE 4 .0 X 13MM SELF FDA Start: 07-14-2017 SCREW NUVASIVE 4 .0 X 13MM SELF FDA Start: 07-14-2017 SCREW NUVASIVE 4 .0 X 13MM SELF FDA Start: 07-14-2017 BONE 7MM DUO FDA Start: 07-14-2017 PLATE NUVASIVE 1 LEVEL CERVICA FDA Start: 07-14-2017 SCREW NUVASIVE 4 .0 X 13MM SELF FDA Start: 07-14-2017 SCREW NUVASIVE 4 .0 X 13MM SELF FDA Start: 07-14-2017 SCREW NUVASIVE 4 .0 X 13MM SELF FDA Start: 07-14-2017 BONE 7MM DUO FDA Start: 07-14-2017 PLATE NUVASIVE 1 LEVEL CERVICA FDA Start: 07-14-2017 SCREW NUVASIVE 4 .0 X 13MM SELF FDA Start: 07-14-2017 SCREW NUVASIVE 4 .0 X 13MM SELF FDA Start: 07-14-2017 SCREW NUVASIVE 4 .0 X 13MM SELF FDA Start: 07-14-2017 BONE 7MM DUO FDA Start: 07-14-2017 PLATE NUVASIVE 1 LEVEL CERVICA FDA Start: 07-14-2017 SCREW NUVASIVE 4 .0 X 13MM SELF FDA Start: 07-14-2017 SCREW NUVASIVE 4 .0 X 13MM SELF FDA Start: 07-14-2017 SCREW NUVASIVE 4 .0 X 13MM SELF FDA Start: 07-14-2017 BONE 7MM DUO FDA Start: 07-14-2017 PLATE NUVASIVE 1 LEVEL CERVICA FDA Start: 07-14-2017 SCREW NUVASIVE 4 .0 X 13MM SELF FDA Start: 07-14-2017 SCREW NUVASIVE 4 .0 X 13MM SELF FDA Start: 07-14-2017 SCREW NUVASIVE 4 .0 X 13MM SELF FDA Start: 07-14-2017 BONE 7MM DUO FDA Start: 07-14-2017 PLATE NUVASIVE 1 LEVEL CERVICA FDA Start: 07-14-2017 SCREW NUVASIVE 4 .0 X 13MM SELF FDA Start: 07-14-2017 SCREW NUVASIVE 4 .0 X 13MM SELF FDA Start: 07-14-2017 SCREW NUVASIVE 4 .0 X 13MM SELF FDA Start: 07-14-2017 BONE 7MM DUO FDA Start: 07-14-2017 PLATE NUVASIVE 1 LEVEL CERVICA FDA Start: 07-14-2017 SCREW NUVASIVE 4 .0 X 13MM SELF FDA Start: 07-14-2017 SCREW NUVASIVE 4 .0 X 13MM SELF FDA Start: 07-14-2017 SCREW NUVASIVE 4 .0 X 13MM SELF FDA Start: 07-14-2017 BONE 7MM DUO FDA Start: 07-14-2017 PLATE NUVASIVE 1 LEVEL CERVICA FDA Start: 07-14-2017 SCREW NUVASIVE 4 .0 X 13MM SELF FDA Start: 07-14-2017 SCREW NUVASIVE 4 .0 X 13MM SELF FDA Start: 07-14-2017 SCREW NUVASIVE 4 .0 X 13MM SELF FDA Start: 07-14-2017 BONE 7MM DUO FDA Start: 07-14-2017 PLATE NUVASIVE 1 LEVEL CERVICA FDA Start: 07-14-2017 SCREW NUVASIVE 4 .0 X 13MM SELF FDA Start: 07-14-2017 SCREW NUVASIVE 4 .0 X 13MM SELF FDA Start: 07-14-2017 SCREW NUVASIVE 4 .0 X 13MM SELF FDA Start: 07-14-2017 Goals Date Patient Goal Desired Activity /State Personal health goal Functional Status Date Assessment Result Facility 01-25-2022 Functional status Patient at [facility] Work Phone: Mental Status Date Assessment Result Facility 01-25-2022 Cognitive function Cognitive Sta tus Patient at Baseline [facility] Work Phone: Clinical Notes 11-09-2021 to 09-15-2024 Telephone Encounter - Raji Haile MD - 09/15/2024 12:41 PM ESTTelephone Encounter - Raji Haile MD - 09/15/2024 12:41 PM Rosemarie Haile MD - 09/14/2024 2:20 PM ESTPatient Instructions Note Date & Type Note Facility 09-15-2024 Telephone encounter Note Approvals with refills [facility] 09-15-2024 Miscellaneous Notes Approvals with refills documented in this encounter [facility] 09-14-2024 History of Presen t illness Narrative Images from the original note were not included. Debra Delarosa is a 68 y.o. female presents with chief complaint of Abdominal Cramping and Diarrhea HPI: HPI History of Present Illness The patient presents for evaluation of diarrhea. She reports experiencing severe diarrhea, which she attributes to a norovirus infection. The onset of symptoms was two days prior, with a significant exacerbation on Friday. She has had 8 bowel movements today. Her appetite remains diminished, but she continues to maintain regular urination without any associated pain or suspicion of a urinary tract infection. She is seeking a work excuse note as she plans to resume her duties on the upcoming Friday. She was previously off work from 09/06/2024 through the entirety of the last week due to a concurrent COVID-19 infection. SUBJECTIVE: MEDICATIONS: Current Outpatient Medications Medication Instructions DULoxetine (CYMBALTA) 60 mg, Oral, Daily, Do not crush or chew. Frasvnzmada-Xefdyestb-Rdqdnz (Trelegy Ellipta) 200-62.5-25 MCG/ACT aerosol powder 1 puff, Inhalation, Daily hydroCHLOROthiazide (HYDRODiuril) 25 MG tablet TAKE 1 TABLET(25 MG) BY MOUTH IN THE MORNING Linzess 290 MCG capsule metoprolol tartrate (LOPRESSOR) 25 mg, Once mirtazapine (REMERON) 30 mg, Nightly Nirmatrelvir&Ritonavir 300/100 (Paxlovid, 300/100,) 20 x 150 MG & 10 x 100MG tablet therapy pack 3 tablets, Oral, 2 times daily omeprazole (PRILOSEC) 40 mg, Oral, Daily before breakfast, Do not crush or chew. Probiotic Product (DAILY PROBIOTIC PO) Take by mouth ALLERGIES: Allergies Allergen Reactions Bee Venom Swelling Bupropion Hallucinations Varenicline Hallucinations Oxycodone-Acetaminophen Nausea And Vomiting Morphine Palpitations SURGICAL HISTORY: Past Surgical History: Procedure Laterality Date CARPAL TUNNEL RELEASE Bilateral CATARACT EXTRACTION CERVICAL FUSION unknown level SECTION, LOW TRANSVERSE CHOLECYSTECTOMY [address] ANGIOGRAM CHEST 07/09/2024 CT ANGIOGRAM CHEST 07/09/[address] [facility] [address] EGD 09/22/2015 EGD w/ Biopsy and Colonoscopy HERNIA REPAIR HYSTERECTOMY JOINT REPLACEMENT [address] Peterson JOINT REPLACEMENT 09/29/2018 Rt ankle replacement LUMBAR FUSION unknown level LUMBAR FUSION 07/10/2016 PLIF LUMBAR FUSION 01/23/2022 Dr Mazariegos [facility] NECK SURGERY 07/14/2017 rods/pins ORIF TIBIA & FIBULA FRACTURES open reduction internal fixation/ removal hardware; fx of right leg IN ARTHROSCOPY KNEE W/MENISCUS RPR MEDIAL/LATERAL 2011 meniscal tear IN EDG TRANSORAL BIOPSY SINGLE/MULTIPLE 06/2019 EGD with Bx ROTATOR CUFF REPAIR 04/2018 Repair supraspinatus and subcap tendon tears ROTATOR CUFF REPAIR Left 07/26/2019 Jonn TOTAL SHOULDER ARTHROPLASTY Left 02/28/2020 Dr. Lunsford FAMILY HISTORY: Family History Problem Relation Name Age of Onset Diabetes Mother Diabetes Sister Rheum arthritis Brother Diabetes Sibling Hypertension Sibling Osteoarthritis Sibling 2 sisters Accidental Son car accident SOCIAL HISTORY: Social History Tobacco Use Smoking status: Every Day Current packs/day: 0.50 Average packs/day: 1 pack/day for 51.0 years (50.5 ttl pk-yrs) Types: Cigarettes Start date: 11/04/1972 Last attempt to quit: 11/04/2022 Smokeless tobacco: Never Substance Use Topics Alcohol use: Never Comment: Caffeine: 4 cups/day coffee Drug use: Never Depression: Not at risk (02/24/2024) PHQ-2 PHQ-2 Score: 0 REVIEW OF SYMPTOMS: Review of Systems OBJECTIVE: Visit Vitals BP 118/84 (BP Location: Left arm, Patient Position: Sitting, BP Cuff Size: Adult) Pulse 67 Resp 18 Ht 5' 4.5 Wt 145 lb 3.2 oz SpO2 97% BMI 24.54 kg/m OB Status Hysterectomy Smoking Status Every Day BSA 1.73 m Physical Exam Constitutional: Appearance: Normal appearance. She is normal weight. HENT: Head: Normocephalic and atraumatic. Nose: Nose normal. Mouth/Throat: Mouth: Mucous membranes are moist. Eyes: Pupils: Pupils are equal, round, and reactive to light. Cardiovascular: Rate and Rhythm: Normal rate and regular rhythm. Heart sounds: No murmur heard. Pulmonary: Effort: Pulmonary effort is normal. Breath sounds: Normal breath sounds. No wheezing or rhonchi. Musculoskeletal: General: No swelling. Cervical back: Normal range of motion and neck supple. Right lower leg: No edema. Left lower leg: No edema. Skin: General: Skin is warm and dry. Findings: No rash. Neurological: Mental Status: She is alert and oriented to person, place, and time. Sensory: No sensory deficit. Gait: Gait normal. Psychiatric: Mood and Affect: Mood normal. Thought Content: Thought content normal. Judgment: Judgment normal. ASSESSMENT AND PLAN: Assessment/Plan Problem List Items Addressed This Visit None Visit Diagnoses Gastroenteritis - Primary Encounter for screening mammogram for malignant neoplasm of breast Relevant Orders Bilateral screening mammogram with tomosynthesis . Assessment & Plan 1. Diarrhea. The etiology of the diarrhea is likely due to a norovirus infection, which has been prevalent recently. She reports improvement in symptoms with no current bowel movements today. Her appetite is not back to normal, but she is urinating regularly without pain or signs of a urinary tract infection. A work excuse note has been provided, covering her absence from 09/06/2024 through the previous week, with a return date scheduled for 09/20/2024. 2. Health maintenance. A mammogram has been ordered for routine screening. documented in this encounter [facility] 09-02-2024 History of Presen t illness Narrative Debra Delarosa is a 68 y.o. female presents with chief complaint of Hypertension HPI: HPI History of Present Illness The patient presents for evaluation of COVID-19. She has been experiencing COVID-19 since 08/30/2024, which include a persistent cough producing thick, deep green sputum. She has been conducting home tests daily, all of which have returned positive results. She reports that her grandchildren have also contracted the virus. She is seeking a medical excuse to abstain from work for an additional week due to her illness. She is currently employed for 13 hours per week but expresses a preference for a maximum of 15 hours per week. She was unable to obtain her prescribed medication due to insurance issues, but she has new insurance now. She also reports significant pain, which she attributes to her recent illness. SOCIAL HISTORY She is currently employed for 13 hours per week. MEDICATIONS Current: Paxlovid SUBJECTIVE: MEDICATIONS: Current Outpatient Medications Medication Instructions DULoxetine (CYMBALTA) 60 mg, Oral, Daily, Do not crush or chew. Ckqjkjxpqlc-Pjtehuxal-Fliofo (Trelegy Ellipta) 200-62.5-25 MCG/ACT aerosol powder 1 puff, Inhalation, Daily hydroCHLOROthiazide (HYDRODiuril) 25 MG tablet TAKE 1 TABLET(25 MG) BY MOUTH IN THE MORNING Linzess 290 MCG capsule metoprolol tartrate (LOPRESSOR) 25 mg, Once mirtazapine (REMERON) 30 mg, Nightly Nirmatrelvir&Ritonavir 300/100 (Paxlovid, 300/100,) 20 x 150 MG & 10 x 100MG tablet therapy pack 3 tablets, Oral, 2 times daily omeprazole (PRILOSEC) 40 mg, Oral, Daily before breakfast, Do not crush or chew. Probiotic Product (DAILY PROBIOTIC PO) Take by mouth ALLERGIES: Allergies Allergen Reactions Bee Venom Swelling Bupropion Hallucinations Varenicline Hallucinations Oxycodone-Acetaminophen Nausea And Vomiting Morphine Palpitations SURGICAL HISTORY: Past Surgical History: Procedure Laterality Date CARPAL TUNNEL RELEASE Bilateral CATARACT EXTRACTION CERVICAL FUSION unknown level SECTION, LOW TRANSVERSE CHOLECYSTECTOMY [address] ANGIOGRAM CHEST 07/09/2024 CT ANGIOGRAM CHEST 07/09/[address] [facility] [address] EGD 09/22/2015 EGD w/ Biopsy and Colonoscopy HERNIA REPAIR HYSTERECTOMY JOINT REPLACEMENT [address] Peterson JOINT REPLACEMENT 09/29/2018 Rt ankle replacement LUMBAR FUSION unknown level LUMBAR FUSION 07/10/2016 PLIF LUMBAR FUSION 01/23/2022 Dr Mazariegos [facility] NECK SURGERY 07/14/2017 rods/pins ORIF TIBIA & FIBULA FRACTURES open reduction internal fixation/ removal hardware; fx of right leg IN ARTHROSCOPY KNEE W/MENISCUS RPR MEDIAL/LATERAL 2011 meniscal tear IN EDG TRANSORAL BIOPSY SINGLE/MULTIPLE 06/2019 EGD with Bx ROTATOR CUFF REPAIR 04/2018 Repair supraspinatus and subcap tendon tears ROTATOR CUFF REPAIR Left 07/26/2019 Jonn TOTAL SHOULDER ARTHROPLASTY Left 02/28/2020 Dr. Lunsford FAMILY HISTORY: Family History Problem Relation Name Age of Onset Diabetes Mother Diabetes Sister Rheum arthritis Brother Diabetes Sibling Hypertension Sibling Osteoarthritis Sibling 2 sisters Accidental Son car accident SOCIAL HISTORY: Social History Tobacco Use Smoking status: Every Day Current packs/day: 0.50 Average packs/day: 1 pack/day for 51.0 years (50.5 ttl pk-yrs) Types: Cigarettes Start date: 11/04/1972 Last attempt to quit: 11/04/2022 Smokeless tobacco: Never Substance Use Topics Alcohol use: Never Comment: Caffeine: 4 cups/day coffee Drug use: Never Depression: Not at risk (02/24/2024) PHQ-2 PHQ-2 Score: 0 REVIEW OF SYMPTOMS: Review of Systems OBJECTIVE: Visit Vitals BP 118/72 (BP Location: Left arm, Patient Position: Sitting, BP Cuff Size: Adult) Pulse 73 Resp 20 Ht 5' 4.5 Wt 144 lb 6.4 oz SpO2 97% BMI 24.40 kg/m OB Status Hysterectomy Smoking Status Every Day BSA 1.73 m Physical Exam Constitutional: Appearance: Normal appearance. She is normal weight. HENT: Head: Normocephalic and atraumatic. Right Ear: Tympanic membrane and ear canal normal. Left Ear: Tympanic membrane and ear canal normal. Nose: Congestion and rhinorrhea present. Mouth/Throat: Mouth: Mucous membranes are moist. Pharynx: Oropharyngeal exudate present. Eyes: Pupils: Pupils are equal, round, and reactive to light. Cardiovascular: Rate and Rhythm: Normal rate and regular rhythm. Heart sounds: No murmur heard. Pulmonary: Effort: Pulmonary effort is normal. Breath sounds: Rhonchi present. No wheezing. Musculoskeletal: General: No swelling. Cervical back: Normal range of motion and neck supple. Right lower leg: No edema. Left lower leg: No edema. Lymphadenopathy: Cervical: No cervical adenopathy. Skin: General: Skin is warm and dry. Findings: No rash. Neurological: Mental Status: She is oriented to person, place, and time. Sensory: No sensory deficit. Gait: Gait normal. Psychiatric: Mood and Affect: Mood normal. Thought Content: Thought content normal. Judgment: Judgment normal. ASSESSMENT AND PLAN: Assessment/Plan Problem List Items Addressed This Visit Chronic obstructive pulmonary disease (CMS/HCC) - Primary [facility] 11/21 Relevant Medications predniSONE (Deltasone) 10 MG tablet doxycycline (Vibra-Tabs) 100 MG tablet Other Relevant Orders XR chest 2 views (Completed) Assessment & Plan 1. COVID-19. She reports experiencing significant pain since the onset of her illness. A prescription for Paxlovid has been issued. Additionally, she will be started on prednisone and doxycycline. An x-ray has been ordered for further evaluation. A work note has been provided, excusing her from work until the following Friday. If her condition deteriorates, she is advised to seek immediate medical attention at the emergency room. If there is no improvement in her symptoms, she should inform the clinic. 2. Pain. She reports experiencing significant pain since the onset of her illness. An x-ray has been ordered for further evaluation. documented in this encounter [facility] 07-12-2024 Telephone encounter Note Patient called and would like to discuss CT results. Ty [facility] 07-12-2024 Miscellaneous Notes Patient called and would like to discuss CT results. Ty documented in this encounter [facility] 06-24-[address] chest angiogram has been ordered for patient. She called her insurance and it is still pending- which could take 14 days. It is suggested that it be marked as URGENT, then [facility] can get her scheduled quicker. Can you add this to her order? Please advise pt. Thank you. [facility] 06-24-[address] chest angiogram has been ordered for patient. She called her insurance and it is still pending- which could take 14 days. It is suggested that it be marked as URGENT, then [facility] can get her scheduled quicker. Can you add this to her order? Please advise pt. Thank you. documented in this encounter [facility] 06-22-2024 History of Presen t illness Narrative Debra Delarosa is a 68 y.o. female presents with chief complaint of Chest Pain (Patient presents today for right sided chest pain with breathing, coughing, and specific movements. Patient states that this started last night. Patient also has cough with production of yellowish green sputum. ) HPI: HPI SUBJECTIVE: MEDICATIONS: Current Outpatient Medications Medication Instructions DULoxetine (CYMBALTA) 60 mg, Oral, Daily, Do not crush or chew. Zpmaehikiqo-Cvbsqadgb-Wfamem (Trelegy Ellipta) 200-62.5-25 MCG/ACT aerosol powder 1 puff, Inhalation, Daily hydroCHLOROthiazide (HYDRODiuril) 25 MG tablet TAKE 1 TABLET(25 MG) BY MOUTH IN THE MORNING Linzess 290 MCG capsule metoprolol tartrate (LOPRESSOR) 25 mg, Once mirtazapine (REMERON) 30 mg, Nightly omeprazole (PRILOSEC) 40 mg, Oral, Daily before breakfast, Do not crush or chew. Probiotic Product (DAILY PROBIOTIC PO) Take by mouth. ALLERGIES: Allergies Allergen Reactions Bee Venom Swelling Bupropion Hallucinations Varenicline Hallucinations Oxycodone-Acetaminophen Nausea And Vomiting Morphine Palpitations SURGICAL HISTORY: Past Surgical History: Procedure Laterality Date CARPAL TUNNEL RELEASE Bilateral CATARACT EXTRACTION CERVICAL FUSION unknown level SECTION, LOW TRANSVERSE CHOLECYSTECTOMY 2013 COLONOSCOPY 2004 EGD 09/22/2015 EGD w/ Biopsy and Colonoscopy HERNIA REPAIR HYSTERECTOMY JOINT REPLACEMENT [address] Peterson JOINT REPLACEMENT 09/29/2018 Rt ankle replacement LUMBAR FUSION unknown level LUMBAR FUSION 07/10/2016 PLIF LUMBAR FUSION 01/23/2022 Dr Mazariegos [facility] NECK SURGERY 07/14/2017 rods/pins ORIF TIBIA & FIBULA FRACTURES open reduction internal fixation/ removal hardware; fx of right leg IN ARTHROSCOPY KNEE W/MENISCUS RPR MEDIAL/LATERAL 2011 meniscal tear IN EDG TRANSORAL BIOPSY SINGLE/MULTIPLE 06/2019 EGD with Bx ROTATOR CUFF REPAIR 04/2018 Repair supraspinatus and subcap tendon tears ROTATOR CUFF REPAIR Left 07/26/2019 Jonn TOTAL SHOULDER ARTHROPLASTY Left 02/28/2020 Dr. Lunsford FAMILY HISTORY: Family History Problem Relation Name Age of Onset Diabetes Mother Diabetes Sister Rheum arthritis Brother Diabetes Sibling Hypertension Sibling Osteoarthritis Sibling 2 sisters Accidental Son car accident SOCIAL HISTORY: Social History Tobacco Use Smoking status: Every Day Current packs/day: 0.50 Average packs/day: 1 pack/day for 50.8 years (50.4 ttl pk-yrs) Types: Cigarettes Start date: 11/04/1972 Last attempt to quit: 11/04/2022 Smokeless tobacco: Never Substance Use Topics Alcohol use: Never Comment: Caffeine: 4 cups/day coffee Drug use: Never Depression: Not at risk (02/24/2024) PHQ-2 PHQ-2 Score: 0 REVIEW OF SYMPTOMS: Review of Systems Respiratory: Negative. Cardiovascular: Negative. OBJECTIVE: Visit Vitals BP 128/72 (BP Location: Left arm, Patient Position: Sitting, BP Cuff Size: Adult) Pulse 68 Resp 18 Ht 5' 4.5 Wt 146 lb SpO2 97% BMI 24.67 kg/m OB Status Hysterectomy Smoking Status Every Day BSA 1.74 m Physical Exam Constitutional: Appearance: Normal appearance. She is normal weight. HENT: Head: Normocephalic and atraumatic. Nose: Nose normal. Mouth/Throat: Mouth: Mucous membranes are moist. Eyes: Pupils: Pupils are equal, round, and reactive to light. Cardiovascular: Rate and Rhythm: Normal rate and regular rhythm. Heart sounds: No murmur heard. Pulmonary: Comments: Prolonged exp phase Right anterior chest wall very tender t palpation mid clavicular line appx rib 8 Musculoskeletal: General: No swelling. Cervical back: Normal range of motion and neck supple. Right lower leg: No edema. Left lower leg: No edema. Skin: General: Skin is warm and dry. Findings: No rash. Neurological: Mental Status: She is alert and oriented to person, place, and time. Sensory: No sensory deficit. Gait: Gait normal. Psychiatric: Mood and Affect: Mood normal. Thought Content: Thought content normal. Judgment: Judgment normal. ASSESSMENT AND PLAN: Assessment/Plan Problem List Items Addressed This Visit None Visit Diagnoses COPD exacerbation (CMS/HCC) - Primary Relevant Medications doxycycline (Vibra-Tabs) 100 MG tablet predniSONE (Deltasone) 10 MG tablet Chest wall pain Relevant Orders XR ribs 2 views right w chest anteroposterior Tylenol for pain suspect ms strain from cough , cont with inhalers documented in this encounter [facility] 06-08-2024 History of Presen t illness Narrative Images from the original note were not included. Debra Delarosa is a 68 y.o. female presents with chief complaint of Establish Care HPI: Patient went to [facility] in April to do some genetic testing. The clinic told her everything looks good but wants a second pair of eyes to make sure everything is okay and that there is no cancer. She did just have 11 colon polyps removed a week ago by in [facility]. She would also like to get flu, covid and pneumonia shots today. History of Present Illness The patient presents for a follow-up visit. She has undergone genetic testing due to the presence of polyps, which was conducted to rule out cancer. . She also mentions that she will be undergoing another colonoscopy in a year. IMMUNIZATIONS She is up to date on her pneumonia vaccine. SUBJECTIVE: MEDICATIONS: ALLERGIES Current Outpatient Medications Medication Instructions DULoxetine (CYMBALTA) 60 mg, Oral, Daily, Do not crush or chew. Clejploatgr-Rjvucbuzd-Efxbqg (Trelegy Ellipta) 200-62.5-25 MCG/ACT aerosol powder 1 puff, Inhalation, Daily hydroCHLOROthiazide (HYDRODiuril) 25 MG tablet TAKE 1 TABLET(25 MG) BY MOUTH IN THE MORNING Linzess 290 MCG capsule metoprolol tartrate (Lopressor) 25 MG tablet Every 12 hours mirtazapine (REMERON) 30 mg, Oral, Nightly omeprazole (PRILOSEC) 40 mg, Oral, Daily before breakfast, Do not crush or chew. Probiotic Product (DAILY PROBIOTIC PO) Oral Allergies Allergen Reactions Bee Venom Swelling Bupropion Hallucinations Varenicline Hallucinations Oxycodone-Acetaminophen Nausea And Vomiting Morphine Palpitations PAST MEDICAL HISTORY: SOCIAL HISTORY SURGICAL HISTORY: Past Medical History: Diagnosis Date Abnormal vaginal Pap smear 2003 Bipolar disorder ([facility]) Carpal tunnel syndrome of right wrist Cervicalgia Chronic fatigue COPD (chronic obstructive pulmonary disease) ([facility]) COVID 09/2021 Depression ([facility]) Displacement of lumbar intervertebral disc Diverticulosis Fracture of right lower leg Fx right leg Gastritis 2019 Granuloma annulare History of meniscal tear Hyperlipidemia ([facility]) Hypertension ([facility]) Incomplete rotator cuff tear Left shoulder supraspinatus and sub cap tears Irritable bowel syndrome Lumbar and sacral arthritis Lumbar spondylosis Osteoarthritis Primary osteoarthritis of left hand Primary osteoarthritis, right hand Right ankle pain Sleep apnea Tobacco use Social History Tobacco Use Smoking status: Every Day Current packs/day: 0.50 Average packs/day: 1 pack/day for 50.8 years (50.4 ttl pk-yrs) Types: Cigarettes Start date: 11/04/1972 Last attempt to quit: 11/04/2022 Smokeless tobacco: Never Substance Use Topics Alcohol use: Never Comment: Caffeine: 4 cups/day coffee Drug use: Never Past Surgical History: Procedure Laterality Date CARPAL TUNNEL RELEASE Bilateral CATARACT EXTRACTION CERVICAL FUSION unknown level SECTION, LOW TRANSVERSE CHOLECYSTECTOMY 2014 COLONOSCOPY 2004 EGD 09/22/2015 EGD w/ Biopsy and Colonoscopy HERNIA REPAIR HYSTERECTOMY JOINT REPLACEMENT [address] Peterson JOINT REPLACEMENT 09/29/2018 Rt ankle replacement LUMBAR FUSION unknown level LUMBAR FUSION 07/10/2016 PLIF LUMBAR FUSION 01/23/2022 Dr Mazariegos [facility] NECK SURGERY 07/14/2017 rods/pins ORIF TIBIA & FIBULA FRACTURES open reduction internal fixation/ removal hardware; fx of right leg IN ARTHROSCOPY KNEE W/MENISCUS RPR MEDIAL/LATERAL 2011 meniscal tear IN EDG TRANSORAL BIOPSY SINGLE/MULTIPLE 06/2019 EGD with Bx ROTATOR CUFF REPAIR 04/2018 Repair supraspinatus and subcap tendon tears ROTATOR CUFF REPAIR Left 07/26/2019 Jonn TOTAL SHOULDER ARTHROPLASTY Left 02/28/2020 Dr. Lunsford REVIEW OF SYMPTOMS: Review of Systems All other systems reviewed and are negative. OBJECTIVE: Vitals: 06/08/24 1110 Temp: 97.1 F Visit Vitals BP 108/64 Pulse 70 Temp 97.1 F Ht 5' 4.5 Wt 142 lb 6.4 oz SpO2 97% BMI 24.07 kg/m OB Status Hysterectomy Smoking Status Every Day BSA 1.71 m Physical Exam Constitutional: Appearance: Normal appearance. She is normal weight. Musculoskeletal: Cervical back: Normal range of motion and neck supple. Skin: General: Skin is warm and dry. Neurological: General: No focal deficit present. Mental Status: She is alert and oriented to person, place, and time. Mental status is at baseline. Psychiatric: Mood and Affect: Mood normal. Behavior: Behavior normal. Thought Content: Thought content normal. Judgment: Judgment normal. ASSESSMENT AND PLAN: Assessment/Plan Problem List Items Addressed This Visit GERD without esophagitis Overview Egd 2018 , sx continue to worsen, not controlled with ppi Essential hypertension (CMS/HCC) Overview Stable good control History of colon polyps Other Visit Diagnoses Encounter for immunization - Primary Relevant Orders Flu vaccine, high dose seasonal, PF ([id number]) (Fluzone High Dose) (Completed) Assessment & Plan 1. Health Maintenance. She is up to date on her pneumonia vaccinations and does not require any more unless guidelines change. An influenza vaccine will be administered today. She had a colonoscopy and is scheduled for the next one in a year. Genetic testing was performed to rule out cancer due to multiple polyps, but the results are not accessible at this time. She is advised to obtain a paper copy of the genetic test results during her next visit to the testing facility. documented in this encounter [facility] 06-01-2024 Procedure note [facility] 05-17-2024 Telephone encounter Note Results left on patient voicemail. Debra Delarosa's Custom Multi-Cancer Panel and Hereditary Myelodysplastic Syndrome/Leukemia Panel with preliminary evidence genes through [facility] was negative for a pathogenic variant. Please see WorkMe[employer] message for further discussion. Russell Walker MS Licensed, Certified Genetic Counselor [facility] Work Phone: 05-17-2024 Miscellaneous Notes Results left on patient voicemail. Debra Delarosa's Custom Multi-Cancer Panel and Hereditary Myelodysplastic Syndrome/Leukemia Panel with preliminary evidence genes through [facility] was negative for a pathogenic variant. Please see [employer] message for further discussion. Russell Walker MS Licensed, Certified Genetic Counselor documented in this encounter [facility] 05-17-2024 Telephone encounter Note Received a call from PT looking for results of her genetic testing. Answered PT question that I cannot see if her results are back in the portal yet, but I will ask her GC Thania Wells to follow up as soon as she can. Explained that Thania will be out of office until later this week, so PT can expect a call later this week or early next week. PT expressed understanding and stated this is okay, she is just a bit anxious to know her results. Empathized with PT and let her know we will be in touch as soon as possible. PT had no further questions at this time. Angie Steiner Genetic Counseling Ride Attendant [facility] 05-17-2024 Miscellaneous Notes Received a call from PT looking for results of her genetic testing. Answered PT question that I cannot see if her results are back in the portal yet, but I will ask her GC Thania Wells to follow up as soon as she can. Explained that Thania will be out of office until later this week, so PT can expect a call later this week or early next week. PT expressed understanding and stated this is okay, she is just a bit anxious to know her results. Empathized with PT and let her know we will be in touch as soon as possible. PT had no further questions at this time. Angie Steiner Genetic Counseling Ride Attendant documented in this encounter [facility] 05-17-2024 Telephone encounter Note Returned call. No answer. Left voice message informing her that she should reach out to her genetic counselor with any questions regarding her genetic tests and the results. If she has any questions about her surgery, she can give our office a call back. [facility] 05-17-2024 Miscellaneous Notes Returned call. No answer. Left voice message informing her that she should reach out to her genetic counselor with any questions regarding her genetic tests and the results. If she has any questions about her surgery, she can give our office a call back. Patient calling to discuss genetic testing results. CB# [phone] documented in this encounter [facility] 05-17-2024 Telephone encounter Note Patient calling to discuss genetic testing results. CB# [phone] [facility] 05-07-2024 Note [facility] REFERRAL LAB 1 (DROP-DOWN) [facility] 04-27-2024 History of Present illness Narrative Formatting of this note is different fro m the original. Images from the original note were not included. Department of Medical Genetics Consultation Note Genetic Counselor: Thania Wells MS, [facility] Patient: Debra Delarosa Patient name and confirmed at initiation of visit Visit was done virtually via Zoom I have communicated my name and active licensure. The patient's identity and physical location were verified at the time of this visit. Either the patient or their legal pharmacy sales representative has been informed of the risks and benefits of -- and alternatives to -- treatment through a remote evaluation and consents to proceed with the evaluation remotely. HIGH LEVEL SUMMARY: The patient's personal and family history is potentially suggestive of a hereditary cancer syndrome. The patient provided informed consent for Custom Multi-Cancer Panel and Hereditary Myelodysplastic Syndrome/Leukemia Panel with preliminary evidence genes through [facility]. Results are expected in 3 weeks from the time of sample collection. IDENTIFICATION AND CHIEF COMPLAINT: Dr. Temi Fajardo requested a consultation for genetic counseling and risk assessment for Debra Delarosa, a 68 year old female, for discussion of her personal history of polyposis. She presents to clinic today to discuss the possibility of a genetic predisposition to cancer, and to further clarify her risks, as well as her family members' risks for cancer. HISTORY OF PRESENT ILLNESS: Debra Delarosa is a 68 year old female with no personal history of cancer. The patient's history is significant for adenomatous polyposis. The patient reports no extra-colonic features. PAST MEDICAL HISTORY 02/02/2024: COPD (chronic obstructive pulmonary disease) (HCC) 02/02/2024: Obstructive sleep apnea syndrome 02/02/2024: Primary hypertension 02/02/2024: Smoker PAST SURGICAL HISTORY No date: BACK SURGERY HX Comment: LUMBAR FUSION No date: COLONOSCOPY SCREENING No date: HERNIA REPAIR HX 2013: JOINT REPLACEMENT HX Comment: Knee replacement Dr. Peterson 2019: JOINT REPLACEMENT HX Comment: Rt ankle replacement No date: PAST SURGICAL HISTORY OF; Bilateral Comment: CARPAL TUNNEL RELEASE Bilateral No date: PAST SURGICAL HISTORY OF Comment: CERVICAL FUSION - uknown level No date: PAST SURGICAL HISTORY OF Comment: SECTION, LOW TRANSVERSE No date: PAST SURGICAL HISTORY OF Comment: EGD No date: PAST SURGICAL HISTORY OF Comment: open reduction internal fixation/ removal hardware; fx of right leg No date: PAST SURGICAL HISTORY OF Comment: ARTHROSCOPY KNEE W/MENISCUS RPR MEDIAL/LATERAL 2011 No date: PAST SURGICAL HISTORY OF Comment: ROTATOR CUFF REPAIR 04/2018 No date: PAST SURGICAL HISTORY OF Comment: ROTATOR CUFF REPAIR Left 07/26/2019 Ward No date: PAST SURGICAL HISTORY OF; Left Comment: TOTAL SHOULDER ARTHROPLASTY Left 02/28/2020 2014: REMOVAL GALLBLADDER No date: VAGINAL HYSTERECTOMY 05/15/2010: XCAPSL CTRC RMVL INSJ IO LENS PROSTH W/O ECP Comment: Performed by EUGENIA STANLEY at [facility] CANCER SURVEILLANCE HISTORY: Mammograms: Yes / 09/10/2023, benign Breast MRI's: No Breast Biopsies: No Colonoscopy 12/30/2023: Pathology: EGD: Yes / Patient reports normal Dermatology: No REPRODUCTIVE HISTORY AND PERSONAL RISK ASSESSMENT FACTORS: Weight: Last 1 Encounter Wt Readings: Date: Wt: 02/02/2024 66 kg (145 lb 8.1 oz) Height: Last 1 Encounter Ht Readings: Date: Ht: 02/02/2024 165.1 cm (5' 5 ) Uterus Intact: No Ovaries Intact: Yes, only 1 ovary SOCIAL HISTORY: Social History Tobacco Use Smoking status: Every Day Current packs/day: 1.00 Average packs/day: 1 pack/day for 50.0 years (50.0 ttl pk-yrs) Types: Cigarettes Vaping Use Vaping status: Never Used Substance Use Topics Alcohol use: Not Currently Drug use: Not Currently FAMILY HISTORY: We obtained a detailed, 4-generation family history. Significant diagnoses are listed below: FAMILY HISTORY Problem Relation Age of Onset Diabetes Mother Arthritis Father Melanoma Father other (Blood disorder) Father Diabetes Sister Arthritis Brother Breast Cancer Maternal Grandmother 60 - 69 Colon Cancer Maternal Uncle 60 - 69 Leukemia Nephew 16 The patient's maternal ancestors are of Ukrainian and Dominican descent and paternal ancestors are of Ukrainian and Armenian descent. There is possible maternal Ashkenazi Restoration ancestry. There is no known consanguinity. A copy of the patient's pedigree will be available under the scanned documents tab following today's visit. GENETIC COUNSELING RISK ASSESSMENT, DISCUSSION, AND SUGGESTED FOLLOW UP: We reviewed the natural history and genetic etiology of sporadic, familial and hereditary cancer syndromes. The patient's personal and family history is potentially suggestive of: a hereditary cancer syndrome The patient meets NCCN Adenomatous Polyposis testing criteria based on her personal history of >=10 cumulative adenomas. We discussed that identification of a hereditary cancer syndrome may help her care providers tailor her medical management. If a mutation is detected, the National Comprehensive Cancer Network and/or expert opinion recommendations could include increased cancer surveillance and prophylactic surgery options. If a mutation is detected, the patient will be referred back to the referring provider and to any additional appropriate care providers to discuss the relevant options. Inheritance of hereditary cancer syndromes was discussed with the patient. If a mutation is not found in the patient, this will decrease the likelihood of a hereditary cancer syndrome as the explanation for the patient's personal history of polyposis. However, it cannot completely rule out this possibility. Cancer surveillance options would be discussed for the patient according to the appropriate standard National Comprehensive Cancer Network and [place] Cancer [employer] guidelines, with consideration of their personal and family history risk factors. In this case, the patient will be referred back to their care providers for discussions of management. Based on this assessment of the patient's family and personal history, genetic testing is recommended. The patient was offered Custom Multi-Cancer Panel and Hereditary Myelodysplastic Syndrome/Leukemia Panel with preliminary evidence genes through [facility]. After considering the risks, benefits, and limitations, the patient chose to pursue and provided informed consent for the following testing: Custom Multi-Cancer Panel and Hereditary Myelodysplastic Syndrome/Leukemia Panel with preliminary evidence genes through [facility]. The Custom Multi-Cancer Panel and Hereditary Myelodysplastic Syndrome/Leukemia Panel includes AIP, ALK, ANKRD26, APC, RULA, AXIN2, BAP1, BARD1, BLM, BMPR1A, BRCA1, BRCA2, BRIP1, CBL, CDC73, CEBPA, CDH1, CDK4, CDKN1B, CDKN2A, CHEK2, CTNNA1, DDX41, DICER1, EGFR, ELANE, EPCAM, CPRE8O9, ETV6, FH, FLCN, G6PC3, GATA2, GFI1, GREM1, HAX1, HOXB13, IKZF1, KIT, KRAS, LZTR1, MAX, MBD4, MECOM, MEN1, MET, MITF, MLH1, MSH2, MSH3, MSH6, MUTYH, NBN, NF1, NF2, NTHL1, PALB2, PDGFRA, PMS2, POLD1, POLE, POT1, KKDRK3O, PTCH1, PTEN, PTPN11, RAD51C, RAD51D, RB1, RET, RTEL1, RUNX1, SAMD9, SAMD9L, SDHA, SDHAF2, SDHB, SDHC, SDHD, SMAD4, SMARCA4, SMARCB1, SMARCE1, SRP72, STK11, SUFU, TERC, TERT, PWZZ106, TP53, TSC1, TSC2, and VHL. Preliminary evidence genes are KDM1A, PAX5, and TET2 The Custom Multi-Cancer panel and Hereditary Myelodysplastic syndrome/Leukemia panel looks at genes associated with cancers of the breast, gynecologic tract (ovarian, uterine/endometrial), gastrointestinal system (colorectal, gastric, pancreatic), endocrine glands (thyroid, parathyroid, pituitary, adrenal glands), genitourinary tract (renal/urinary tract, prostate), skin (melanoma, basal cell carcinoma), and brain/nervous system as well as myelodysplastic syndrome and leukemia.. We discussed that an NGS panel can rarely result in an unexpected finding which may or may not be related to the presenting phenotype. We discussed that [employer] may call the patient regarding billing. The patient should watch for this communication and respond promptly. The patient should contact [employer] directly with any billing questions (ph. [phone] or [email or web address]). Per the patient's request, we will contact her by [email or web address] or telephone to review these results. A follow up genetic counseling visit will be scheduled if requested. The patient was seen for a total of 30 minutes, greater than 50% of which was spent [id number] counseling. This plan is being carried out under the oversight of Dr. Lori Aguayo. This note will also be sent to the referring provider via the electronic medical record. Thania Wells MS, [facility] CC: Dr. Temi Aguayo documented in this encounter [facility] 04-27-2024 Note HNO ID: [id number] Author: THANIA WELLS MS Service: ? Author Type: Genetic Counselor Type: Progress Notes Filed: 06/23/2024 14:29 Note Text: Department of Medical Genetics Consultation Note Genetic Counselor: Thania Wells MS, [facility] Patient: Debra Delarosa Patient name and confirmed at initiation of visit Visit was done virtually via Zoom I have communicated my name and active licensure. The patient's identity and physical location were verified at the time of this visit. Either the patient or their legal pharmacy sales representative has been informed of the risks and benefits of -- and alternatives to -- treatment through a remote evaluation and consents to proceed with the evaluation remotely. HIGH LEVEL SUMMARY: The patient's personal and family history is potentially suggestive of a hereditary cancer syndrome. The patient provided informed consent for Custom Multi-Cancer Panel and Hereditary Myelodysplastic Syndrome/Leukemia Panel with preliminary evidence genes through [facility]. Results are expected in 3 weeks from the time of sample collection. IDENTIFICATION AND CHIEF COMPLAINT: Dr. Temi Fajardo requested a consultation for genetic counseling and risk assessment for Debra Delarosa, a 68 year old female, for discussion of her personal history of polyposis. She presents to clinic today to discuss the possibility of a genetic predisposition to cancer, and to further clarify her risks, as well as her family members' risks for cancer. HISTORY OF PRESENT ILLNESS: Debra Delarosa is a 68 year old female with no personal history of cancer. The patient's history is significant for adenomatous polyposis. The patient reports no extra-colonic features. PAST MEDICAL HISTORY 02/02/2024: COPD (chronic obstructive pulmonary disease) (HCC) 02/02/2024: Obstructive sleep apnea syndrome 02/02/2024: Primary hypertension 02/02/2024: Smoker PAST SURGICAL HISTORY No date: BACK SURGERY HX Comment: LUMBAR FUSION No date: COLONOSCOPY SCREENING No date: HERNIA REPAIR HX 2013: JOINT REPLACEMENT HX Comment: Knee replacement Dr. Peterson 2019: JOINT REPLACEMENT HX Comment: Rt ankle replacement No date: PAST SURGICAL HISTORY OF; Bilateral Comment: CARPAL TUNNEL RELEASE Bilateral No date: PAST SURGICAL HISTORY OF Comment: CERVICAL FUSION - uknown level No date: PAST SURGICAL HISTORY OF Comment: SECTION, LOW TRANSVERSE No date: PAST SURGICAL HISTORY OF Comment: EGD No date: PAST SURGICAL HISTORY OF Comment: open reduction internal fixation/ removal hardware; fx of right leg No date: PAST SURGICAL HISTORY OF Comment: ARTHROSCOPY KNEE W/MENISCUS RPR MEDIAL/LATERAL 2011 No date: PAST SURGICAL HISTORY OF Comment: ROTATOR CUFF REPAIR 04/2018 No date: PAST SURGICAL HISTORY OF Comment: ROTATOR CUFF REPAIR Left 07/26/2019 Ward No date: PAST SURGICAL HISTORY OF; Left Comment: TOTAL SHOULDER ARTHROPLASTY Left 02/28/2020 2014: REMOVAL GALLBLADDER No date: VAGINAL HYSTERECTOMY 05/15/2010: XCAPSL CTRC RMVL INSJ IO LENS PROSTH W/O ECP Comment: Performed by EUGENIA STANLEY at [facility] CANCER SURVEILLANCE HISTORY: Mammograms: Yes / 09/10/2023, benign Breast MRI's: No Breast Biopsies: No Colonoscopy 12/30/2023: Pathology: EGD: Yes / Patient reports normal Dermatology: No REPRODUCTIVE HISTORY AND PERSONAL RISK ASSESSMENT FACTORS: Weight: Last 1 Encounter Wt Readings: Date: Wt: 02/02/2024 66 kg (145 lb 8.1 oz) Height: Last 1 Encounter Ht Readings: Date: Ht: 02/02/2024 165.1 cm (5' 5 ) Uterus Intact: No Ovaries Intact: Yes, only 1 ovary SOCIAL HISTORY: Social History Tobacco Use Smoking status: Every Day Current packs/day: 1.00 Average packs/day: 1 pack/day for 50.0 years (50.0 ttl pk-yrs) Types: Cigarettes Vaping Use Vaping status: Never Used Substance Use Topics Alcohol use: Not Currently Drug use: Not Currently FAMILY HISTORY: We obtained a detailed, 4-generation family history. Significant diagnoses are listed below: FAMILY HISTORY Problem Relation Age of Onset Diabetes Mother Arthritis Father Melanoma Father other (Blood disorder) Father Diabetes Sister Arthritis Brother Breast Cancer Maternal Grandmother 60 - 69 Colon Cancer Maternal Uncle 60 - 69 Leukemia Nephew 16 The patient's maternal ancestors are of Ukrainian and Dominican descent and paternal ancestors are of Ukrainian and Armenian descent. There is possible maternal Ashkenazi Restoration ancestry. There is no known consanguinity. A copy of the patient's pedigree will be available under the scanned documents tab following today's visit. GENETIC COUNSELING RISK ASSESSMENT, DISCUSSION, AND SUGGESTED FOLLOW UP: We reviewed the natural history and genetic etiology of sporadic, familial and hereditary cancer syndromes. The patient's personal and family history is potentially suggestive of: a hereditary cancer syndrome The pat (more content not included)... [facility] 02-02-2024 Instructions Augustina Mcgarry APRN.DIGITAL ACCOUNT MANAGER - 02/02/2024 3:43 PM EDT PATIENT PREOPERATIVE INSTRUCTIONS Tracie Johnson MD has scheduled you for your procedure at this surgery center: [facility]: [phone] --[address], [place] [address]. Please read below carefully for your personalized instructions. Dietary Restrictions: Dietary and Bowel Prep Instructions per Surgeon - No solid food after midnight. - You may have 12 ounces of clear liquids (water, clear juices such as apple juice or gatorade, carbonated beverages, clear tea, black coffee) until 2 hours before scheduled arrival at facility. Medications: Unless instructed differently below, stay on all of your prescription medications until your surgery. Approved medications to take the morning of surgery with a sip of water: DULoxetine (CYMBALTA) , omeprazole (PRILOSEC), ALL INHALERS If you start any new medications after today's visit, please contact the surgeon's office. Blood Thinning Medications: - Stop NSAIDS (Ibuprofen, Advil, Aleve, Motrin, Celebrex, Mobic, etc.) 7 days before surgery, as directed by your surgeon. - Stop Aspirin 7 days before surgery, as directed by your surgeon. - Do NOT stop aspirin or other anticoagulants without consulting with your hotel attendant or prescribing physician. - Stop Vitamin E, ALL multi-vitamins, herbals and dietary supplements 7 days before surgery. - You may take Tylenol (Acetaminophen) or any of your pain medications that do not contain aspirin or NSAIDS as needed. Important Reminders: - If you are prescribed inhalers for breathing, continue using them. - Candy, mints, and tobacco products are NOT permitted the morning of surgery. - Hearing aids, dentures and glasses may be worn the morning of surgery. - NO jewelry, body piercings, makeup, hairpins or contacts are to be worn the day of surgery. If you develop symptoms such as a fever, cold, or flu, or have other changes to your health within TWO DAYS of scheduled surgery or the morning of surgery, please contact the surgery center above. Personal Belongings: -Please have photo ID and insurance cards. -If you do not have a copy of advance directives on file with us, please bring a copy with you on the day of surgery. - Leave ALL valuables and money at home or with family members. For Outpatient Procedures: - YOU MUST HAVE A RESPONSIBLE CNC SPECIALIST TAKE YOU HOME. A BLOOD BANK COORDINATOR OR EMBEDDED FIRMWARE DEVELOPER CANNOT BE MADE A RESPONSIBLE CNC SPECIALIST. - We recommend that a responsible person stays with you overnight to take care of you. - You cannot stay in a hotel alone after outpatient surgery. You will not be permitted to have your surgery, if you do not have someone to take care of you. Arrival Time for Surgery: - The Surgery Center or hospital where you are having surgery will call the afternoon before surgery (or Friday for Friday surgery) with a scheduled arrival time. - If you have not heard by 4 pm, please contact the surgery center above. Please be aware that emergency situations arise, which may delay or change your surgical time. If this happens, we will notify you as soon as possible and regret any inconvenience. If you already have an Advance Directive, please fax a copy to [phone] or email to for it to be added to your chart. If you do not have an Advance Directive, you can find the appropriate form and more information at [email or web address]. We recommend that you complete the Advance Directive form found on the website and bring it with you the day of your surgery. It can be witnessed and scanned into your chart that day. documented in this encounter [facility] 02-02-2024 History and physical note Formatting of this note is different fro m the original. HISTORY AND PHYSICAL EXAMINATION SERVICE DATE: 02/02/2024 SERVICE TIME: 3:31 PM PRIMARY CARE PHYSICIAN: Raji Haile MD REASON FOR VISIT: Debra Delarosa is a 68 year old female who is scheduled for Procedure(s) (LRB): EXAM UNDER ANESTHESIA RECTAL (N/A) SURGICAL EXCISION LESION ANAL (N/A) at the request of Dr. Tracie Johnson for consultation. My final recommendation will be communicated back to the requesting physician by way of shared medical record or letter. Subjective CHIEF COMPLAINT: surgery HPI: Patient is a 68 year old female with Anal lesion identified on colonoscopy that is recommended for surgery. She currently denies any pain or bleeding. PAST MEDICAL HISTORY Diagnosis Date COPD (chronic obstructive pulmonary disease) (HCC) 02/02/2024 Obstructive sleep apnea syndrome 02/02/2024 Primary hypertension 02/02/2024 Smoker 02/02/2024 PAST SURGICAL HISTORY Procedure Laterality Date BACK SURGERY HX LUMBAR FUSION 2015.2021 COLONOSCOPY SCREENING HERNIA REPAIR HX JOINT REPLACEMENT HX [address] Peterson JOINT REPLACEMENT HX 2018 Rt ankle replacement PAST SURGICAL HISTORY OF Bilateral CARPAL TUNNEL RELEASE Bilateral PAST SURGICAL HISTORY OF CERVICAL FUSION - uknown level PAST SURGICAL HISTORY OF SECTION, LOW TRANSVERSE PAST SURGICAL HISTORY OF EGD PAST SURGICAL HISTORY OF open reduction internal fixation/ removal hardware; fx of right leg PAST SURGICAL HISTORY OF ARTHROSCOPY KNEE W/MENISCUS RPR MEDIAL/LATERAL 2011 PAST SURGICAL HISTORY OF ROTATOR CUFF REPAIR 04/2018 PAST SURGICAL HISTORY OF ROTATOR CUFF REPAIR Left 07/26/2019 Ward PAST SURGICAL HISTORY OF Left TOTAL SHOULDER ARTHROPLASTY Left 02/28/2020 REMOVAL GALLBLADDER 2014 VAGINAL HYSTERECTOMY XCAPSL CTRC RMVL INSJ IO LENS PROSTH W/O ECP 05/15/2010 Performed by EUGENIA STANLEY at [facility] FAMILY HISTORY Problem Relation Age of Onset Diabetes Mother Arthritis Father Cancer Father Diabetes Sister Arthritis Brother SOCIAL HISTORY: Social History Tobacco Use Smoking status: Every Day Packs/day: 1.00 Years: 50.00 Additional pack years: 0.00 Total pack years: 50.00 Types: Cigarettes Vaping Use Vaping Use: Never used Substance Use Topics Alcohol use: Not Currently Drug use: Not Currently Prior to Admission medications as of 02/02/24 1541 Medication Sig Last Dose Taking lipase/protease/amylase (ZENPEP ORAL) Take by mouth. 40,000 international unit(s) 2 capsules with meals daily and 1 capsule with snacks. Taking Yes linaCLOtide (LINZESS) 290 mcg capsule Take by mouth daily at 6 am. Taking Yes hydroCHLOROthiazide 25 mg tablet Take 25 mg by mouth once daily. Taking Yes DULoxetine (CYMBALTA) 60 mg capsule Take 60 mg by mouth once daily. Taking Yes Lactobacillus acidophilus (PROBIOTIC ACIDOPHILUS ORAL) Take by mouth once daily. Taking Yes gzmkljpgzvu-fprvloljz-shxtioas (TRELEGY ELLIPTA) 200-62.5-25 mcg inhalation powder Inhale 1 Puff as instructed once daily. Taking Yes omeprazole (PRILOSEC) 40 mg capsule Take 40 mg by mouth once daily. Taking Yes Cholecalciferol, Vitamin D3, (VITAMIN D-3) 50 mcg (2,000 unit) cap Take by mouth once daily. omega-3 DHA-EPA (FISH OIL) 1,200 (144-216) mg capsule Take 1 capsule by mouth daily with breakfast. calcium carbonate (CALCIUM 300 ORAL) Take by mouth once daily. No medication comments found. ALLERGIES Allergen Reactions Morphine COVID VACCINATION STATUS: Fully vaccinated REVIEW OF SYSTEMS: PAIN ASSESSMENT: General: No weight loss, malaise or fevers. Neuro: No history of TIA's, stroke, ELECT[employer]ICAL [employer]S DESIGNER tumor, impaired sensorium, hemiplegia, paraplegia or quadraplegia. No neurological symptoms or problems. Respiratory: No history of current cough or dyspnea, or pneumonia in the past 6 weeks. (+) COPD, smoker, TEENA does not use CPAP Cardiovascular: Positive for: Hypertension, Negative for CAD, Chest Pain, CHF, PVD, Valvular Heart Disease, DVT/PE GI: Positive for GERD, Negative for Nausea, Vomiting, Abdominal pain, Difficulty swallowing, Liver disease, Pancreatitis : No history of dysuria, frequency or incontinence,, stones or chronic kidney disease CERTIFIED BREASTFEEDING EDUCATOR: Negative for abnormal vaginal bleeding, abnormal vaginal discharge. : Denies, No LMP recorded. Patient has had a hysterectomy. Endocrine: No history of diabetes. Has not taken steroids within the past 30 days. No history of endocrinological symptoms or problems. Hematology: No history of bleeding or clotting disorder. Pt is not taking anti-coagulation or platelet medications. No history of hematological symptoms or problems. Oncology: No history of CA metastasis, chemo within 30 days, or radiotherapy within 90 days. Has not lost 10% of body wt in 6 months. No history of oncological symptoms or problems. Psych: Depression Musculoskeletal: Back pain and Joint pain Skin: Negative for lesions, rash and itching. Objective PHYSICAL EXAM: VITALS: BP 135/73 Pulse 69 Temp (Src) 97.8 (Temporal) Resp 16 Ht 5' 5 (1.65m) Wt 145 lb 8.1 oz (66.0kg) SpO2 96% BMI 24.21 kg/(m^2). General: Alert and oriented x 3, In no apparent distress. Skin: Normal color, no rash, no lesions. HEENT: EOM, pupils equal, round and reactive. Oropharynx clear. Neck Supple Cardiovascular: Normal S1 & S2, no rubs, murmurs or gallops. No JVD. Pulse regular. Lungs: Normal breath sounds, no wheezes or crackles. Abdomen: Soft, non-tender, no rigidity. BS present. Extremities: No deformity, no edema or tenderness, no joint swelling or clubbing. Neurological: Normal cognition and motor skills. HERRERA 5/5, Normal gait Pulses: Carotid and radial pulses normal +2. Diagnostic tests reviewed for today's visit: Lab Value Units Date High Low HB No results within date range. HCT No results within date range. WBC No results within date range. PLT No results within date range. NA No results within date range. K No results within date range. GLUC No results within date range. BUN No results within date range. CREAT No results within date range. PTSEC No results within date range. INR No results within date range. APTT No results within date range. ALT No results within date range. AST No results within date range. TBILI No results within date range. TSH No results within date range. Lab Value Units Date High Low HCGQT No results within date range. UHCG No results within date range. HCG, BODY* No results within date range. Lab Value Units Date High Low ABORHD No results within date range. ABSCREEN No results within date range. No results found for: HBA1C Assessment/Plan Smoker Assessment: 50 pack year cigarette smoker Cessation with strategies encouraged. COPD (chronic obstructive pulmonary disease) ([facility]) Assessment: COPD Managed with Trelegy and Albuterol Inhalers Evaluated by Yolanda Daniels DO (Pulmonary 07/02/2023) Denies recent exacerbation RA 02/02/24 1448 SpO2: 96% GERD (gastroesophageal reflux disease) Assessment: Pt. reports symptoms controlled with medication Primary hypertension Assessment: Managed with med, stable. Date: BP: 02/02/2024 135/73 01/27/2024 139/79 Follows with PCP Obstructive sleep apnea syndrome Assessment: Does not use CPAP METS: Climb a flight of stairs or walk up a hill (5.50 METs) Patient denies any chest pain or undue shortness of breath with the above physical activity. Lives on 2nd floor of building, climbs 21 steps daily ANESTHESIA FINDINGS: Intubation History: No history of difficult intubation Significant Anesthesia Considerations: None Airway Exam: General: Normal appearance Mallampati Score is CLASS II ULBT: Unable to perform Neck: Normal appearance , Neck ROM: decreased neck extension and slightly limited bilateral rotation, (+) flexion. Distance from hyoid to mentum during neck extension is at least 3 finger breaths Mouth: Normal tongue size and Mouth opening greater than 2 finger breaths Dentition: Upper denture Airway History: History of head/neck surgery that distorted airway, including mouth, neck, or their mobility s/p cervical fusion, level unknown Neck ROM: decreased neck extension and slightly limited bilateral rotation, (+) flexion. 01/30/2024 Sleep Apnea Probability Snores loudly: Yes Tired, fatigued or sleepy in daytime: Yes Stops breathing or choking/gasping during sleep: No High blood pressure: Yes Sleep Apnea Probability Score: 37 (Sleep study not recommended) (+) TEENA does not use CPAP PLAN This patient is optimally prepared for surgery pending results CONSULTS: Patient does not require consults for optimization at this time. The Following Tests/Procedures Have Been Initiated: lab per Surgeon Orders Placed This Encounter BMP Standing Status: Future Number of Occurrences: 1 Standing Expiration Date: 05/03/2024 Complete Blood Count Standing Status: Future Number of Occurrences: 1 Standing Expiration Date: 05/03/2024 , EKG not indicated per [facility] protocol Planned Anesthetic: Per anesthesia choice Instructions Given to Patient: Instructions located in the after visit summary. Patient given verbal and written preop instructions and voices comprehension and compliance. SIGNATURE: Augustina Mcgarry APRN.CNP PATIENT NAME: Debra Delarosa DATE: February 02, 2024 TIME: 3:32 PM [facility] 02-02-2024 History and physical note Formatting of this note is different fro m the original. HISTORY AND PHYSICAL EXAMINATION SERVICE DATE: 02/02/2024 SERVICE TIME: 3:31 PM PRIMARY CARE PHYSICIAN: Raji Haile MD REASON FOR VISIT: Debra Delarosa is a 68 year old female who is scheduled for Procedure(s) (LRB): EXAM UNDER ANESTHESIA RECTAL (N/A) SURGICAL EXCISION LESION ANAL (N/A) at the request of Dr. Tracie Johnson for consultation. My final recommendation will be communicated back to the requesting physician by way of shared medical record or letter. Subjective CHIEF COMPLAINT: surgery HPI: Patient is a 68 year old female with Anal lesion identified on colonoscopy that is recommended for surgery. She currently denies any pain or bleeding. PAST MEDICAL HISTORY Diagnosis Date COPD (chronic obstructive pulmonary disease) ([facility]) 02/02/2024 Obstructive sleep apnea syndrome 02/02/2024 Primary hypertension 02/02/2024 Smoker 02/02/2024 PAST SURGICAL HISTORY Procedure Laterality Date BACK SURGERY HX LUMBAR FUSION 2015.2021 COLONOSCOPY SCREENING HERNIA REPAIR HX JOINT REPLACEMENT HX [address] Peterson JOINT REPLACEMENT HX 2019 Rt ankle replacement PAST SURGICAL HISTORY OF Bilateral CARPAL TUNNEL RELEASE Bilateral PAST SURGICAL HISTORY OF CERVICAL FUSION - uknown level PAST SURGICAL HISTORY OF SECTION, LOW TRANSVERSE PAST SURGICAL HISTORY OF EGD PAST SURGICAL HISTORY OF open reduction internal fixation/ removal hardware; fx of right leg PAST SURGICAL HISTORY OF ARTHROSCOPY KNEE W/MENISCUS RPR MEDIAL/LATERAL 2011 PAST SURGICAL HISTORY OF ROTATOR CUFF REPAIR 04/2018 PAST SURGICAL HISTORY OF ROTATOR CUFF REPAIR Left 07/26/2019 Jonn PAST SURGICAL HISTORY OF Left TOTAL SHOULDER ARTHROPLASTY Left 02/28/2020 REMOVAL GALLBLADDER 2014 VAGINAL HYSTERECTOMY XCAPSL CTRC RMVL INSJ IO LENS PROSTH W/O ECP 05/15/2010 Performed by EUGENIA STANLEY at [facility] FAMILY HISTORY Problem Relation Age of Onset Diabetes Mother Arthritis Father Cancer Father Diabetes Sister Arthritis Brother SOCIAL HISTORY: Social History Tobacco Use Smoking status: Every Day Packs/day: 1.00 Years: 50.00 Additional pack years: 0.00 Total pack years: 50.00 Types: Cigarettes Vaping Use Vaping Use: Never used Substance Use Topics Alcohol use: Not Currently Drug use: Not Currently Prior to Admission medications as of 02/02/24 1541 Medication Sig Last Dose Taking lipase/protease/amylase (ZENPEP ORAL) Take by mouth. 40,000 international unit(s) 2 capsules with meals daily and 1 capsule with snacks. Taking Yes linaCLOtide (LINZESS) 290 mcg capsule Take by mouth daily at 6 am. Taking Yes hydroCHLOROthiazide 25 mg tablet Take 25 mg by mouth once daily. Taking Yes DULoxetine (CYMBALTA) 60 mg capsule Take 60 mg by mouth once daily. Taking Yes Lactobacillus acidophilus (PROBIOTIC ACIDOPHILUS ORAL) Take by mouth once daily. Taking Yes rbndxqvogke-nmtmmtbwb-tedfwybn (TRELEGY ELLIPTA) 200-62.5-25 mcg inhalation powder Inhale 1 Puff as instructed once daily. Taking Yes omeprazole (PRILOSEC) 40 mg capsule Take 40 mg by mouth once daily. Taking Yes Cholecalciferol, Vitamin D3, (VITAMIN D-3) 50 mcg (2,000 unit) cap Take by mouth once daily. omega-3 DHA-EPA (FISH OIL) 1,200 (144-216) mg capsule Take 1 capsule by mouth daily with breakfast. calcium carbonate (CALCIUM 300 ORAL) Take by mouth once daily. No medication comments found. ALLERGIES Allergen Reactions Morphine COVID VACCINATION STATUS: Fully vaccinated REVIEW OF SYSTEMS: PAIN ASSESSMENT: General: No weight loss, malaise or fevers. Neuro: No history of TIA's, stroke, ELECTRICAL CONTROLS DESIGNER tumor, impaired sensorium, hemiplegia, paraplegia or quadraplegia. No neurological symptoms or problems. Respiratory: No history of current cough or dyspnea, or pneumonia in the past 6 weeks. (+) COPD, smoker, TEENA does not use CPAP Cardiovascular: Positive for: Hypertension, Negative for CAD, Chest Pain, CHF, PVD, Valvular Heart Disease, DVT/PE GI: Positive for GERD, Negative for Nausea, Vomiting, Abdominal pain, Difficulty swallowing, Liver disease, Pancreatitis : No history of dysuria, frequency or incontinence,, stones or chronic kidney disease CERTIFIED BREASTFEEDING EDUCATOR: Negative for abnormal vaginal bleeding, abnormal vaginal discharge. : Denies, No LMP recorded. Patient has had a hysterectomy. Endocrine: No history of diabetes. Has not taken steroids within the past 30 days. No history of endocrinological symptoms or problems. Hematology: No history of bleeding or clotting disorder. Pt is not taking anti-coagulation or platelet medications. No history of hematological symptoms or problems. Oncology: No history of CA metastasis, chemo within 30 days, or radiotherapy within 90 days. Has not lost 10% of body wt in 6 months. No history of oncological symptoms or problems. Psych: Depression Musculoskeletal: Back pain and Joint pain Skin: Negative for lesions, rash and itching. Objective PHYSICAL EXAM: VITALS: BP 135/73 Pulse 69 Temp (Src) 97.8 (Temporal) Resp 16 Ht 5' 5 (1.65m) Wt 145 lb 8.1 oz (66.0kg) SpO2 96% BMI 24.21 kg/(m^2). General: Alert and oriented x 3, In no apparent distress. Skin: Normal color, no rash, no lesions. HEENT: EOM, pupils equal, round and reactive. Oropharynx clear. Neck Supple Cardiovascular: Normal S1 & S2, no rubs, murmurs or gallops. No JVD. Pulse regular. Lungs: Normal breath sounds, no wheezes or crackles. Abdomen: Soft, non-tender, no rigidity. BS present. Extremities: No deformity, no edema or tenderness, no joint swelling or clubbing. Neurological: Normal cognition and motor skills. HERRERA 5/5, Normal gait Pulses: Carotid and radial pulses normal +2. Diagnostic tests reviewed for today's visit: Lab Value Units Date High Low HB No results within date range. HCT No results within date range. WBC No results within date range. PLT No results within date range. NA No results within date range. K No results within date range. GLUC No results within date range. BUN No results within date range. CREAT No results within date range. PTSEC No results within date range. INR No results within date range. APTT No results within date range. ALT No results within date range. AST No results within date range. TBILI No results within date range. TSH No results within date range. Lab Value Units Date High Low HCGQT No results within date range. UHCG No results within date range. HCG, BODY* No results within date range. Lab Value Units Date High Low ABORHD No results within date range. ABSCREEN No results within date range. No results found for: HBA1C Assessment/Plan Smoker Assessment: 50 pack year cigarette smoker Cessation with strategies encouraged. COPD (chronic obstructive pulmonary disease) ([facility]) Assessment: COPD Managed with Trelegy and Albuterol Inhalers Evaluated by Yolanda Daniels DO (Pulmonary 07/02/2023) Denies recent exacerbation RA 02/02/24 1448 SpO2: 96% GERD (gastroesophageal reflux disease) Assessment: Pt. reports symptoms controlled with medication Primary hypertension Assessment: Managed with med, stable. Date: BP: 02/02/2024 135/73 01/27/2024 139/79 Follows with PCP Obstructive sleep apnea syndrome Assessment: Does not use CPAP METS: Climb a flight of stairs or walk up a hill (5.50 METs) Patient denies any chest pain or undue shortness of breath with the above physical activity. Lives on 2nd floor of building, climbs 21 steps daily ANESTHESIA FINDINGS: Intubation History: No history of difficult intubation Significant Anesthesia Considerations: None Airway Exam: General: Normal appearance Mallampati Score is CLASS II ULBT: Unable to perform Neck: Normal appearance , Neck ROM: decreased neck extension and slightly limited bilateral rotation, (+) flexion. Distance from hyoid to mentum during neck extension is at least 3 finger breaths Mouth: Normal tongue size and Mouth opening greater than 2 finger breaths Dentition: Upper denture Airway History: History of head/neck surgery that distorted airway, including mouth, neck, or their mobility s/p cervical fusion, level unknown Neck ROM: decreased neck extension and slightly limited bilateral rotation, (+) flexion. 01/30/2024 Sleep Apnea Probability Snores loudly: Yes Tired, fatigued or sleepy in daytime: Yes Stops breathing or choking/gasping during sleep: No High blood pressure: Yes Sleep Apnea Probability Score: 37 (Sleep study not recommended) (+) TEENA does not use CPAP PLAN This patient is optimally prepared for surgery pending results CONSULTS: Patient does not require consults for optimization at this time. The Following Tests/Procedures Have Been Initiated: lab per Surgeon Orders Placed This Encounter BMP Standing Status: Future Number of Occurrences: 1 Standing Expiration Date: 05/03/2024 Complete Blood Count Standing Status: Future Number of Occurrences: 1 Standing Expiration Date: 05/03/2024 , EKG not indicated per [facility] protocol Planned Anesthetic: Per anesthesia choice Instructions Given to Patient: Instructions located in the after visit summary. Patient given verbal and written preop instructions and voices comprehension and compliance. SIGNATURE: Augustina Mcgarry APRN.CNP PATIENT NAME: Debra Delarosa DATE: February 02, 2024 TIME: 3:32 PM documented in this encounter [facility] 01-30-2024 Telephone encounter Note Formatting of this note might be differe nt from the original. Patient was scheduled for virtual [facility] appt at 0730 today. Patient did not check in for visit. Called patient at 0735 to see if they needed any assistance logging in went straight to voicemail. This message routed to [facility] schedulers to contact patient to reschedule [facility] appt. Edgar Boston APRN.CNP [facility] Work Phone: 01-30-2024 Miscellaneous Notes Formatting of this note might be differe nt from the original. Patient was scheduled for virtual [facility] appt at 0730 today. Patient did not check in for visit. Called patient at 0735 to see if they needed any assistance logging in went straight to voicemail. This message routed to [facility] schedulers to contact patient to reschedule [facility] appt. Edgar Boston APRN.CNP documented in this encounter [facility] 01-27-2024 Nurse Note Education packet given for EUA/fulguration of anal lesion on February 12. Discussed pre op instructions in detail. She will complete the ordered blood work before surgery. She has no questions or concerns at this time. [facility] 01-27-2024 Nurse Note Education packet given for EUA/fulguration of anal lesion on February 12. Discussed pre op instructions in detail. She will complete the ordered blood work before surgery. She has no questions or concerns at this time. documented in this encounter [facility] 01-27-2024 History of Present illness Narrative Formatting of this note is different fro m the original. COLORECTAL SURGERY January 27, 2024 Debra Delarosa This consult was requested by Dr. Temi Fajardo and my final recommendations will be communicated to the requesting health care provider by way of the shared medical record for internal providers or letter via the [employer] for external providers. 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 Anorectal lesions: None Anorectal symptoms: Last September had thick yellow liquid per rectum 2-3 times but none since. No itching, pain, bulges, lesions, bleeding, or urge to defecate Prior abnormal Pap or known HPV exposure: 2 abnormal PAP smears - at least 10 years ago with no issues on follow up Immunosuppressed? No history of cancer, chemotherapy use, or radiation use Patient states she is tolerating her diet, no recent weight changes, or excessive fatigue. She typically has a bowel movement daily but can go up to a week without one. Her stools can be hard or soft depending on the day but never hematochezia. She has tried stool softeners and hydration with no previous improvement in constipation. Most recently hasn't had a bowel movement in 4 days. 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 COPD HLD HTN PAST SURGICAL HISTORY Procedure Laterality Date XCAPSL CTRC RMVL INSJ IO LENS PROSTH W/O ECP 05/15/10 Performed by EUGENIA STANLEY at [facility] Cholecystectomy (years ago) Hysterectomy () Tubal ligation () Left inguinal hernia repair with mesh () Current Outpatient Medications Medication Sig Dispense Refill lipase/protease/amylase (ZENPEP ORAL) Take by mouth. 40,000 international unit(s) 2 capsules with meals daily and 1 capsule with snacks. linaCLOtide (LINZESS) 290 mcg capsule Take by mouth daily at 6 am. hydroCHLOROthiazide 25 mg tablet Take 25 mg by mouth once daily. DULoxetine (CYMBALTA) 60 mg capsule Take 60 mg by mouth once daily. Lactobacillus acidophilus (PROBIOTIC ACIDOPHILUS ORAL) Take by mouth once daily. nznxgttxzsy-imppgxybu-yfyrsyho (TRELEGY ELLIPTA) 200-62.5-25 mcg inhalation powder Inhale 1 Puff as instructed once daily. Cholecalciferol, Vitamin D3, (VITAMIN D-3) 50 mcg (2,000 unit) cap Take by mouth once daily. omega-3 DHA-EPA (FISH OIL) 1,200 (144-216) mg capsule Take 1 capsule by mouth daily with breakfast. calcium carbonate (CALCIUM 300 ORAL) Take by mouth once daily. omeprazole (PRILOSEC) 40 mg capsule Take 40 mg by mouth once daily. SIMVASTATIN 40 MG TAB 0 NIACIN 500 MG TAB 0 TRAZODONE 50 MG TAB 0 CETIRIZINE 10 MG CAP 0 rabeprazole sodium(ACIPHEX 20 MG TAB) 0 MELOXICAM 15 MG TAB 0 CYCLOBENZAPRINE 10 MG TAB 0 No current facility-administered medications for this visit. ALLERGIES Allergen Reactions Morphine No family history on file. Social History Tobacco Use Smoking status: Every Day Packs/day: 0.50 Years: 40.00 Additional pack years: 0.00 Total pack years: 20.00 Types: Cigarettes Substance Use Topics Alcohol use: Not Currently Drug use: Not Currently Physical Exam: BP 139/79 (BP Site: Right Arm, BP Position: Sitting) Pulse 65 Ht 165.1 cm (5' 5 ) Wt 65.3 kg (144 lb) SpO2 94% BMI 23.96 kg/m General Appearance: Well appearing, alert, in no acute distress, well-hydrated, well nourished. Abdomen: soft, nontender, nondistended Anorectal: External exam reveals normal anoderm and external hemorrhoids. Digital rectal exam reveals right lateral anal canal lesion palpable, soft 5 mm Tire Spotter present: Yes Nena Anoscopy: The patient was placed in left lateral position. After digital exam with a lubricated finger, the scope was not easily inserted. Anoscopy aborted due to patient discomfort. Assessment Assessment and Plan: Debra Delarosa is a 68 year old female presents to the office for evaluation of an anal condyloma which was found on colonoscopy. Did not tolerate office exam. HIV Rectal EUA, biopsy and fulguration of anorectal lesion, likely right lateral location Medical Decision Making: Data Reviewed: Tests & Documents Reviewed/ordered: Review of Pathology Review of Procedures / Tests: Colonoscopy Additional testing or imaging to be ordered: exam under anesthesia I have discussed Debra Delarosa's treatment plan and/or results with the patient. I spent a total of 40 minutes on the date of the service which included preparing to see the patient, [id number] patient care, completing clinical documentation, obtaining and/or reviewing separately obtained history, performing a medically appropriate examination, counseling and educating the patient/family/caregiver, ordering medications, tests, or procedures, independently interpreting results (not separately reported), communicating results to the patient/family/caregiver, and care coordination (not separately reported). Tracie Johnson MD Colorectal Surgery documented in this encounter [facility] 01-27-2024 Note HNO ID: [id number] Author: TRACIE JOHNSON MD Service: ? Author Type: Physician Type: Progress Notes Filed: 01/27/2024 09:19 Note Text: COLORECTAL SURGERY January 27, 2024 Debra Delarosa This consult was requested by Dr. Temi Fajardo and my final recommendations will be communicated to the requesting health care provider by way of the shared medical record for internal providers or letter via the [employer] for external providers. 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 Anorectal lesions: None Anorectal symptoms: Last September had thick yellow liquid per rectum 2-3 times but none since. No itching, pain, bulges, lesions, bleeding, or urge to defecate Prior abnormal Pap or known HPV exposure: 2 abnormal PAP smears - at least 10 years ago with no issues on follow up Immunosuppressed? No history of cancer, chemotherapy use, or radiation use Patient states she is tolerating her diet, no recent weight changes, or excessive fatigue. She typically has a bowel movement daily but can go up to a week without one. Her stools can be hard or soft depending on the day but never hematochezia. She has tried stool softeners and hydration with no previous improvement in constipation. Most recently hasn't had a bowel movement in 4 days. 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 COPD HLD HTN PAST SURGICAL HISTORY Procedure Laterality Date XCAPSL CTRC RMVL INSJ IO LENS PROSTH W/O ECP 05/15/10 Performed by EUGENIA STANLEY at [facility] Cholecystectomy (years ago) Hysterectomy () Tubal ligation () Left inguinal hernia repair with mesh () Current Outpatient Medications Medication Sig Dispense Refill lipase/protease/amylase (ZENPEP ORAL) Take by mouth. 40,000 international unit(s) 2 capsules with meals daily and 1 capsule with snacks. linaCLOtide (LINZESS) 290 mcg capsule Take by mouth daily at 6 am. hydroCHLOROthiazide 25 mg tablet Take 25 mg by mouth once daily. DULoxetine (CYMBALTA) 60 mg capsule Take 60 mg by mouth once daily. Lactobacillus acidophilus (PROBIOTIC ACIDOPHILUS ORAL) Take by mouth once daily. zflfthlcxxg-otrciziiv-wnstjndn (TRELEGY ELLIPTA) 200-62.5-25 mcg inhalation powder Inhale 1 Puff as instructed once daily. Cholecalciferol, Vitamin D3, (VITAMIN D-3) 50 mcg (2,000 unit) cap Take by mouth once daily. omega-3 DHA-EPA (FISH OIL) 1,200 (144-216) mg capsule Take 1 capsule by mouth daily with breakfast. calcium carbonate (CALCIUM 300 ORAL) Take by mouth once daily. omeprazole (PRILOSEC) 40 mg capsule Take 40 mg by mouth once daily. SIMVASTATIN 40 MG TAB 0 NIACIN 500 MG TAB 0 TRAZODONE 50 MG TAB 0 CETIRIZINE 10 MG CAP 0 rabeprazole sodium(ACIPHEX 20 MG TAB) 0 MELOXICAM 15 MG TAB 0 CYCLOBENZAPRINE 10 MG TAB 0 No current facility-administered medications for this visit. ALLERGIES Allergen Reactions Morphine No family history on file. Social History Tobacco Use Smoking status: Every Day Packs/day: 0.50 Years: 40.00 Additional pack years: 0.00 Total pack years: 20.00 Types: Cigarettes Substance Use Topics Alcohol use: Not Currently Drug use: Not Currently Physical Exam: BP 139/79 (BP Site: Right Arm, BP Position: Sitting) Pulse 65 Ht 165.1 cm (5' 5 ) Wt 65.3 kg (144 lb) SpO2 94% BMI 23.96 kg/m? General Appearance: Well appearing, alert, in no acute distress, well-hydrated, well nourished. Abdomen: soft, nontender, nondistended Anorectal: External exam reveals normal anoderm and external hemorrhoids. Digital rectal exam reveals right lateral anal canal lesion palpable, soft 5 mm [employer] present: Yes Nena Anoscopy: The patient was placed in left lateral position. After digital exam with a lubricated finger, the scope was not easily inserted. Anoscopy aborted due to patient discomfort. Assessment Assessment and Plan: Debra Delarosa is a 68 year old female presents to the office for evaluation of an anal condyloma which was found on colonoscopy. Did not tolerate office exam. HIV Rectal EUA, biopsy and fulguration of anorectal lesion, likely right lateral location Medical Decision Making: Data Reviewed: Tests AN (more content not included)... [facility] 01-06-2024 Telephone encounter Note Formatting of this note might be differe nt from the original. Received referral for pt to see Dr. Johnson, from Dr. Temi Fajardo. Called and patient call in unavailable. They do not have MyChart either. [facility] 01-06-2024 Miscellaneous Notes Formatting of this note might be differe nt from the original. Received referral for pt to see Dr. Johnson, from Dr. Temi Fajardo. Called and patient call in unavailable. They do not have MyChart either. documented in this encounter [facility] 01-06-2024 Telephone encounter Note Formatting of this note might be differe nt from the original. This encounter opened in Error. [facility] 01-06-2024 Miscellaneous Notes Formatting of this note might be differe nt from the original. This encounter opened in Error. documented in this encounter [facility] 12-30-2023 Procedure note [facility] 12-30-2023 History and physical note Note Date/Time December 30, 2023 8:55am [facility] [address] [place], [place] [id number] Gastroenterology H&P Signed Patient: Debra Delarosa MR#: [id number] : 1955 Acct:[id number] Age/Sex: 68 / F Adm Date: 4 Loc: Room: Type: [facility] Attending Dr: Temi Fajardo DO Copies to: DO Raji Whitfield MD~ Date of Service: 12/30/2023 HISTORY & PHYSICAL: Patient's history with special attention to the cardiovascular, pulmonary systems and the current problem was reviewed with the patient immediately prior to the procedure. Present medications and doses reviewed in the EMR. Allergies and pertinent laboratory tests were also reviewedat this time in the EMR. The physical examination, as below, was then performed. Indication, assessment and HPI: 68-year-old female who presents for colonoscopy for history of colon polyps. Colonoscopy attempted earlier this month but was aborted due to poor prep. Her last colonoscopy was 10 years ago Family history of GI malignancy? No PHYSICAL EXAMINATION General appearance: cooperative, NAD Skin: No jaundice, no rash or lesions Head: NCAT Eyes: Anicteric Neck: Supple Lungs: Normal respiratory effort, no use of accessory muscles Abdomen: Soft, nondistended Neuro: No focal deficits, Ox3. REVIEW OF SYSTEMS Constitutional: Denies malaise, fevers Cardiovascular: Denies chest pain, palpitations Respiratory: Denies shortness of breath, wheezing Gastrointestinal: As per HPI Genitourinary: Denies dysuria, polyuria Musculoskeletal: Denies joint swelling, joint stiffness Neurological: Denies confusion, numbness, tingling Endocrine: Denies fatigue Written informed consent obtained from the patient. Risks (including but not limited to perforation, infection, bloating, bleeding, need for emergent surgeryand loss of life), benefits and alternatives explained and questions answered. The patient verbalized understanding. Based on history patient is an appropriate candidate for the procedure. Temi Fajardo DO Documented By: Temi Fajardo DO 12/30/23 0854 Signed By: <Electronically signed by Temi Fajardo DO> 12/30/23 1048 [facility] Work Phone: 1(433) 316-882204-16-2024 History and physical note Author Temi Fajardo [facility] December 16, 2023 11:05am Note Date/Time December 16, 2023 10: 38am [facility] [address] [place] [address] Gastroenterology H&P Signed Patient: Debra Delarosa MR#: [id number] : 1955 Acct:[id number] Age/Sex: 68 / F Adm Date: 4 Loc: Room: Type: [facility] Attending Dr: Temi Fajardo DO Copies to: DO Raji Whitfield MD~ Date of Service: 12/16/2023 HISTORY & PHYSICAL: Patient's history with special attention to the cardiovascular, pulmonary systems and the current problem was reviewed with the patient immediately prior to the procedure. Present medications and doses reviewed in the EMR. Allergies and pertinent laboratory tests were also reviewedat this time in the EMR. The physical examination, as below, was then performed. Indication, assessment and HPI: 68-year-old female who presents for surveillancecolonoscopy for history of colon polyp. Last colonoscopy about 10 years ago Family history of GI malignancy? No family history of GI malignancy. + family history of colon polyp PHYSICAL EXAMINATION General appearance: cooperative, NAD Skin: No jaundice, no rash or lesions Head: NCAT Eyes: Anicteric Neck: Supple Lungs: Normal respiratory effort, no use of accessory muscles Abdomen: Soft, nondistended Neuro: No focal deficits, Ox3. REVIEW OF SYSTEMS Constitutional: Denies malaise, fevers Cardiovascular: Denies chest pain, palpitations Respiratory: Denies shortness of breath, wheezing Gastrointestinal: As per HPI Genitourinary: Denies dysuria, polyuria Musculoskeletal: Denies joint swelling, joint stiffness Neurological: Denies confusion, numbness, tingling Endocrine: Denies fatigue Written informed consent obtained from the patient. Risks (including but not limited to perforation, infection, bloating, bleeding, need for emergent surgeryand loss of life), benefits and alternatives explained and questions answered. The patient verbalized understanding. Based on history patient is an appropriate candidate for the procedure. Temi Fajardo DO Documented By: Temi Fajardo DO 12/16/23 1037 Signed By: <Electronically signed by Temi Fajardo DO> 12/16/23 1105 [facility] Work Phone: [phone] 478-208604-16-2024 [facility] History of Present illness Narrative* Afsaneh Castro MA - 10/16/2023 2:40 PM EST Debra Delarosa is a 67 y.o. female presents with chief complaint of Cough HPI: HPI Patient presents today with a cough that has been going on for a week, she states this morning she coughed up thick green phlegm SUBJECTIVE: MEDICATIONS: Current Outpatient Medications Medication Instructions albuterol HFA 90 mcg/act inhaler 2 puffs, Inhalation, Every 6 hours PRN calcium carbonate (OS-REJI) 500 mg, Oral, Daily RT DULoxetine (Cymbalta) [address] capsule TAKE 1 CAPSULE(60 MG) BY MOUTH IN THE MORNING Slvkvxkuime-Enrtuaiwn-Tfsogv (Trelegy Ellipta) 200-62.5-25 MCG/ACT aerosol powder Inhalation hydroCHLOROthiazide (HYDRODIURIL) 25 mg, Oral, Daily HYDROcodone-acetaminophen ([place]) 5-325 MG tablet linaCLOtide (LINZESS) 145 mcg, Oral, Daily before breakfast metoprolol tartrate (Lopressor) 25 MG tablet Every 12 hours mirtazapine (REMERON) 30 mg, Oral, Nightly omega-3 (Fish Oil) 1000 MG capsule 1 capsule, Every 24 hours omeprazole (PriLOSEC) [address] capsule TAKE 1 CAPSULE BY MOUTH EVERY DAY 30 MINUTES BEFORE BREAKFAST Probiotic Product (DAILY PROBIOTIC PO) Oral Zenpep 74868-704442 units capsule delayed-release particles capsule TAKE 2 CAPSULES BY MOUTH THREE TIMES DAILY WITH MEALS AND 1 CAPSULE TWICE DAILY WITH SNACKS REVIEW OF SYMPTOMS: Review of Systems OBJECTIVE: Visit Vitals BP 128/60 Pulse 68 Temp 98.8 F Ht 5' 4.5 Wt 145 lb 3.2 oz SpO2 97% BMI 24.54 kg/m OB Status Hysterectomy Smoking Status Every Day BSA 1.73 m Physical Exam ASSESSMENT AND PLAN: Assessment/Plan * Raji Haile MD - 10/16/2023 2:40 PM EST Debra Delarosa is a 67 y.o. female presents with chief complaint of cough Started yesterday Lots of head congestion Using albuterol more often past 2 weeks HPI: Cough Ready to quit smoking, Also mood is doing well, she wants to wean off cymbalta and start wellbutrin to assist with tobaccocessation SUBJECTIVE: MEDICATIONS: Current Outpatient Medications Medication Instructions albuterol HFA 90 mcg/act inhaler 2 puffs, Inhalation, Every 6 hours PRN calcium carbonate (OS-REJI) 500 mg, Oral, Daily RT DULoxetine (Cymbalta) [address] capsule TAKE 1 CAPSULE(60 MG) BY MOUTH IN THE MORNING Jczntuaqnbi-Eqnjkkdmw-Kxrgly (Trelegy Ellipta) 200-62.5-25 MCG/ACT aerosol powder Inhalation hydroCHLOROthiazide (HYDRODIURIL) 25 mg, Oral, Daily HYDROcodone-acetaminophen ([place]) 5-325 MG tablet linaCLOtide (LINZESS) 145 mcg, Oral, Daily before breakfast metoprolol tartrate (Lopressor) 25 MG tablet Every 12 hours mirtazapine (REMERON) 30 mg, Oral, Nightly omega-3 (Fish Oil) 1000 MG capsule 1 capsule, Every 24 hours omeprazole (PriLOSEC) [address] capsule TAKE 1 CAPSULE BY MOUTH EVERY DAY 30 MINUTES BEFORE BREAKFAST Probiotic Product (DAILY PROBIOTIC PO) Oral Zenpep 39230-170385 units capsule delayed-release particles capsule TAKE 2 CAPSULES BY MOUTH THREE TIMES DAILY WITH MEALS AND 1 CAPSULE TWICE DAILY WITH SNACKS REVIEW OF SYMPTOMS: Review of Systems Constitutional: Negative. Respiratory: Positive for cough. Cardiovascular: Negative. Gastrointestinal: Negative. Musculoskeletal: Negative. Neurological: Negative. Psychiatric/Behavioral: Negative. OBJECTIVE: Visit Vitals OB Status Hysterectomy Smoking Status Every Day Visit Vitals BP 128/60 Pulse 68 Temp 98.8 F Ht 5' 4.5 Wt 145 lb 3.2 oz SpO2 97% BMI 24.54 kg/m OB Status Hysterectomy Smoking Status Every Day BSA 1.73 m Physical Exam Constitutional: Appearance: Normal appearance. She is normal weight. HENT: Head: Normocephalic and atraumatic. Right Ear: Tympanic membrane and ear canal normal. Left Ear: Tympanic membrane and ear canal normal. Nose: Congestion and rhinorrhea present. Mouth/Throat: Mouth: Mucous membranes are moist. Pharynx: Oropharyngeal exudate present. Eyes: Pupils: Pupils are equal, round, and reactive to light. Cardiovascular: Rate and Rhythm: Normal rate and regular rhythm. Heart sounds: No murmur heard. Pulmonary: Effort: Pulmonary effort is normal. Breath sounds: Normal breath sounds. No wheezing or rhonchi. Musculoskeletal: General: No swelling. Cervical back: Normal range of motion and neck supple. Right lower leg: No edema. Left lower leg: No edema. Lymphadenopathy: Cervical: No cervical adenopathy. Skin: General: Skin is warm and dry. Findings: No rash. Neurological: Mental Status: She is oriented to person, place, and time. Sensory: No sensory deficit. Gait: Gait normal. Psychiatric: Mood and Affect: Mood normal. Thought Content: Thought content normal. Judgment: Judgment normal. ASSESSMENT AND PLAN: Assessment/Plan Problem List Items Addressed This Visit None Visit Diagnoses COPD exacerbation (CMS/[facility]) - Primary Relevant Medications predniSONE (Deltasone) 10 MG tablet doxycycline (Vibra-Tabs) 100 MG tablet Major depressive disorder, recurrent, moderate (F33.1) Relevant Medications DULoxetine (Cymbalta) [address] capsule buPROPion XL (Wellbutrin XL) 150 MG 24 hr tablet buPROPion XL (Wellbutrin XL) 300 MG 24 hr tablet Tobacco abuse Set quit date 2 weeks after starting wellbutrin Consider adding nicotine patches to assist with nicotine withdrawal she is a aguilar of her options documented in this [facility]02-09-2024 Telephone encounter Note* Telephone Encounter - Humera Espinal - 10/10/2023 11:39 AM EST Pt updated address and will keep pharmacy [facility] [id number] Miscellaneous Notes* Telephone Encounter - Humera Espinal - 10/10/2023 11:39 AM EST Pt updated address and will keep pharmacy documented in this [facility]12-06-2023 Evaluation note* Encounter Date Diagnosis Assessment Notes Treatment Notes Treatment Clinical Notes Aug, Spondylolisthesis, lumbar region (ICD-10 - M43.16) Reviewed the x-ray of the lumbar spine 6 view 06/20/2023 and which shows there is moderate disc height loss at L2-3 with anterolisthesis of L2 on L3 similar to prior exam. There is no pathological movement on flexion-extension there is posterior intervertebral fusion of L3-S1 vertebral body heights are preserved and sacrum and sacroiliac joints are normal. Degenerative changes are noted in the hips left greater than right. Discussion of conservative therapy as patient is not wanting any surgical/procedural intervention at this time. Will refer to aqua therapy at [facility]. Discussion of arthritic changes in which will order lab work rheumatoid factor, LEXI, sed rate, uric acid. Will follow-up in 12 weeks. Aug, Sacroiliac inflammation (ICD-10 - M46.1) Aug, Arthritis (ICD-10 - M19.90) [employer] Other 10-20-2023 Evaluation note* Encounter Date Diagnosis Assessment Notes Treatment Notes Treatment Clinical Notes Jun, Sacroiliac inflammation (ICD-10 - M46.1) Reviewed notes from ER, CT Reviewed. Mechanical fall no LOC. Disucssion of inflammation and use of antiinflammatories. WIll order Medrol dose pack and lidocaine patches. Will order xray of lumbar and cervical spine. Follow up in 6 weeks. Jun, History of lumbar fusion (ICD-10 - Z98.1) Jun, History of fusion of cervical spine (ICD-10 - Z98.1) Jun, Arthritis (ICD-10 - M19.90) Jun, Fall, initial encounter (ICD-10 - W19.XXXA) [employer] Other 09-28-2023 Evaluation note* Encounter Date Diagnosis Assessment Notes Treatment Notes Treatment Clinical Notes May, Exocrine pancreatic insufficiency (ICD-10 - K86.81) [employer] Other 08-07-2023 Evaluation note* Encounter Date Diagnosis Assessment Notes Treatment Notes Treatment Clinical Notes Apr, Abdominal aortic aneurysm (AAA) 3.0 cm to 5.0 cm in diameter in female (ICD-10 - I71.40) [employer] Other 08-02-2023 [facility]* Encounter Date Diagnosis Assessment Notes Treatment Notes Treatment Clinical Notes Mar, GERD (gastroesophageal reflux disease) (ICD-10 - K21.9) Mar, Constipation (ICD-10 - K59.00) Mar, Abdominal pain (ICD-10 - R10.9) Mar, Weight loss (ICD-10 - R63.4) Mar, Dyspepsia (ICD-10 - K30) Stop duloxetine-1 week later start mirtazapine [employer] Other 02-15-2023 NotePROCEDURE: XR ANKLE RT MIN 3 VIEWS COMPARISON: 04/18/2022 HISTORY: Pain of right ankle joint FINDINGS: BONES:Total ankle arthroplasty in stable alignment. No acute fracture, dislocation, mechanical failure or evidence of loosening. Contour deformity and sclerosis of the distal visualized tibia, remote traumatic injury. Severe degenerative changes of the foot and ankle with joint space narrowing marginal osteophyte formation and enthesopathic spurring SOFT TISSUES:Negative. No visible soft tissue swelling. EFFUSION:None visible. OTHER: Negative. IMPRESSION: Stable tibiotalar arthroplasty Electronically authenticated by: EDI ADAMS Date: 2022-10-16 10:39[facility]11-29-2022 Evaluation note* Encounter Date Diagnosis Assessment Notes Treatment Notes Treatment Clinical Notes Jul, Spondylolisthesis , lumbar region (ICD-10 - M43.16) I independently reviewed the x-ray of the lumbar spine showing good bony alignment, hardware placement, and bone growth noted in the interbody space. Will order an x-ray and follow-up for 6 months. Jul, Arthritis of left hip (ICD-10 - M16.12) Per report noted degenerative changes of the hip. Patient complaining of left hip pain with cold weather changes that is relieved by tylenol. Patient has a mild positive Cachorro sign, Advised to follow up with PCP if hip pain worsens. Jul, History of lumbar fusion (ICD-10 - Z98.1) [employer] Other 09-29-2022 NotePROCEDURE: Without IV contrast axial helical 1.25 mm slice thickness low dose images of the chest performed for lung cancer screening. FINDINGS: No suspicious lung nodule, mass or parenchymal consolidation. Mild pleural bands both bases, right greater than left. Slight diffuse interstitial prominence not consistent with idiopathic pulmonary fibrosis. No significant mediastinal or hilar lymphadenopathy. No pleural or pericardial effusion. IMPRESSION:?? CATEGORY 1- Negative LUNG- RADS: CATEGORIES Category 0: Incomplete: Additional imaging Categories 1 &2: Negative/Benign: Continue annual screening Category 3: Probable benign; 6 months LDCT CATEGORY 3s Clinical significant or potentially clinically significant findings. Category 4A/B Suspicious: 4A: 3 month LDCT; PET/CT when >8 mm solid nodule component exists 4B: Chest CT w/wo contrast; PET/CT and/or biopsy Report reported and signed by Josue Cesar on 05/30/2022 0944[facility]08-23-2022 Evaluation note* Encounter Date Diagnosis Assessment Notes Treatment Notes Treatment Clinical Notes Apr, Spondylolisthesis, lumbar region (ICD-10 - M43.16) I independently reviewed the plain x-ray of the lumbar spine and compared to previous. There is good cage placement good hardware placement with no abnormalities. The patient has absolutely no symptoms and is happy with her result at 3 months. I will see the patient again in 3 months with another x-ray. She understands and agrees Apr, History of lumbar fusion (ICD-10 - Z98.1) Apr, Lumbar stenosis with neurogenic claudication (ICD-10 - M48.062) [employer] Other 08-19-2022 NotePROCEDURE: XR ANKLE RT MIN 3 VIEWS HISTORY: Pain of right ankle joint COMPARISON: XR ankle right 10/18/2021 FINDINGS: BONES:Prosthetic replacement of the articular surfaces of the tibial plafond and talar dome. Thin rim of lucency surrounding the lateral bone anchor of the tibial component (previously stated to be the medial bone anchor); unchanged. Stable chronic marrow changes within distal tibia. SOFT TISSUES:No visible soft tissue swelling. EFFUSION:None visible. OTHER: Negative. IMPRESSION: 1. Stable surgical changes as detailed above. 2. No acute abnormality. Electronically authenticated by: KIET PHAM Date: 2022-04-19 07:34[facility]06-30-2022 Evaluation note* Encounter Date Diagnosis Assessment Notes Treatment Notes Treatment Clinical Notes Jan, History of lumbar fusion (ICD-10 - Z98.1) Jan, Lumbar stenosis with neurogenic claudication (ICD-10 - M48.062) I have independently reviewed the plain x-ray of the lumbar spine showing hardware at L3-4 with good cage placement. The patient clinically has good relief of her symptomatology with minimal discomfort. She wants to drive which is no problem. She will see me again in 2 months with a new x-ray. She is aware of limitations. She declines physical therapy [employer] Other 05-26-2022 Progress note Author Minh Mazariegos [facility] January 24, 2022 7:50am Note Date/Time January 24, 2022 7:50a m [facility] [address] [place] [address] Neurosurgery Progress Note Signed Patient: Debra Delarosa MR#: [id number] : 1955 Acct:[id number] Age/Sex: 66 / F Adm Date: 2 Loc: Room: [address] [place] [address] Type : ADM IN Attending Dr: Minh Mazariegos MD Copies to: ~ Date of Service: 01/24/2022 Subjective Subjective HPI: Patient has tightness on top of the right thigh otherwise her legs feel good andher back pain is controllable Exam Physical Exam Vital Signs: Temp Pulse Resp BP Pulse Ox 98.1 F 51 L 12 106/53 L 93 L 01/24/22 07:43 01/24/22 07:43 01/24/22 07:43 01/24/22 07:43 01/24/22 07:43 Narrative: Lower extremity strength at baseline Slight decreased light touch over top of the right anterior thigh Wounds dry Patient sitting comfortable in bed Assessment/Plan Assessment/Plan (1) Lumbar stenosis with neurogenic claudication: Plan: Postoperative day #1 the patient looks very good we will start physical therapy with probable discharge tomorrow. Code(s): M48.062 - Spinal stenosis, lumbar region with neurogenic claudication Status: Acute Documented By: Minh Mazariegos MD 01/24/22 0749 Signed By: <Electronically signed by MD Minh Mazariegos> 01/24/22 0750 [facility] Work Phone: 1([phone]) 668-499304-19-2022 Evaluation note* Encounter Date Diagnosis Assessment Notes Treatment Notes Treatment Clinical Notes Nov, History of lumbar fusion (ICD-10 - Z98.1) Nov, Lumbar stenosis with neurogenic claudication (ICD-10 - M48.062) I have independently reviewed the MRI of the lumbar spine which shows a severe critical spinal stenosis at L3-4 with a retrolisthesis at L3-4. There is no gross movement on flexion and extension on plain x-ray. DEXA scan which was independently reviewed shows good bone quality. This patient is in need of a anterior lateral lumbar interbody fusion with posterior decompression and placement of screws at L3 and L4 with revision of old hardware. I reviewed images and DEXA face to face with patient and had an extensive discussion of the findings on this and the patient symptoms and the treatment options along with risks and benefits of surgery. She understands agrees she has been given the indication operation postop course risk benefits of surgery as well as complications to include paralysis nerve damage incomplete relief of symptoms infection and spinal fluid leak. She would like to proceed with surgical intervention. A lumbar sagital brace will be dispensed prior to surgery to reduce pain by restricting mobility of the trunk and to otherwise support weak spinal muscles and/or a deformed spine Nov, Other intervertebral disc degeneration, lumbar region (ICD-10 - M51.36) Nov, Spondylolisthesis, lumbar region (ICD-10 - M43.16) [employer] Other 03-29-2022 Evaluation note* Encounter Date Diagnosis Assessment Notes Treatment Notes Treatment Clinical Notes Oct, Lumbar stenosis with neurogenic claudication (ICD-10 - M48.062) Patient has multiple problems. The patient has significant lumbar neurogenic claudication; her last x-ray is several years old showing hardware L4-S1. She has an MRI also which was independently reviewed that shows severe spinal stenosis at L3-4. The patient is in her mid 60s and postmenopausal. For further evaluation this patient will need a dynamic back x-ray and I will reevaluate the patient at that point for surgical intervention. Oct, Cervical myelopathy (ICD-10 - G95.9) She has an existing cervical myelopathy that has not been evaluated for several years. She will need a plain x-ray of the cervical spine with flexion and extension views. Oct, History of lumbar fusion (ICD-10 - Z98.1) [employer] Other 03-11-2022 NoteHISTORY: Low back pain, left leg radiation, numbness PROCEDURE: Multiplanar, multisequence imaging including T1, T2 without contrast. FINDINGS: Correlation made with recent plain film exam of July 18, 2021. L4-S1 pedicle screw fusion hardware. laminectomy. Similar alignment to the prior plain film study, 5 mm anterolisthesis above the level of fusion, L3 upon L4, 2 mm anterolisthesis L2 upon L3. No bone marrow edema or fracture. Normal conus medullaris and filum terminale. T11/12 - T12/L1: Normal disc volume. Mild disc bulging, small central disc herniations. No spinal canal or neuroforaminal stenosis. L1/2: Normal disc volume. Mild central disc bulging, facet arthropathy. No spinal canal or neuroforaminal stenosis. L2/3: Mild disc space loss. Minimal anterolisthesis contributes to uncovering of bulging disc material. Bilateral facet arthropathy and ligamentum flavum hypertrophy. No spinal canal or neuroforaminal stenosis. Probable chronic spondylolysis, no acute process or acute inflammatory changes. L3/4: Mild to moderate disc space loss. 5 mm anterolisthesis contributes to uncovering of central disc material. Prominent granulation tissue associated with ligamentum flavum hypertrophy (left hemileminectomy defect) contributes to severe stenosis of the thecal sac (1-2 mm AP diameter). No neuroforaminal stenosis. L4/5 - L5/S1: Fused segments, normal alignment. No spinal canal or neuroforaminal stenosis. IMPRESSION: Severe spinal canal stenosis above the level of fusion, L3/4 due to granulation tissue compromising the posterior spinal canal, and mild disc bulging with anterolisthesis compromising the anterior portion of the canal. Report reported and signed by Josue Cesar on 11/09/2021 1020[facility] [place] [facility] SpecialistDischarge summary Author Mnih Mazariegos [facility] January 25, 2022 10:23am Note Date/Time January 25, 2022 10:23 am [facility] [address] [place] [address] Discharge Summary Signed Patient: Debra Delarosa MR#: [id number] : 1955 Acct:[id number] Age/Sex: 66 / F Adm Date: 2 Loc: 4N Room: 8B9747-[address]: Minh Mazariegos MD Copies to: MD Raji Thrasher MD~ Providers Date of Discharge: 01/25/22 Discharging Provider: Minh Mazariegos Primary Care Provider: Raji Hiale Consults: 01/23/22 14:09 Consult to Occupational Therapy Routine Consult to Physical Therapy Routine Discharge Diagnosis (1) Lumbar stenosis with neurogenic claudication: Final Diagnosis Final Discharge Diagnosis: Lumbar stenosis with neurogenic claudication L3-4 Summary Hospital Course Hospital course: Patient was admitted to the hospital preoperatively. Underwent general anesthesia. Patient was positioned lateral right side up. Anterior lateral interbody fusion performed at L3-4. Patient was positioned prone. Bilateral pedicle screws were placed at L3, her previous hardware was revised and new screws were placed bilaterally at L4. Patient tolerated procedure well. Postoperatively patient's recovery was unremarkable. Condition Condition at Discharge: Stable Status at Discharge Functional status at discharge: uses cane/walker Overall status at discharge: patient is progressing back to baseline Time Spent with Patient Time spent providing/coordinating discharge services (# min): 30 Surgeries and Procedures Operation Date: 01/23/22 10:30 Actual Procedures p OR PARTIAL REMOVAL EXISTING LUMBAR IMPLANTS; XLIF L3-4(Not Applicable) - Bladimir Mazariegos MD Exam Physical Exam Vital Signs: Temp Pulse Resp BP Pulse Ox 97.7 F 56 L 18 128/54 L 95 01/25/22 04:00 01/25/22 04:00 01/25/22 04:00 01/25/22 04:00 01/25/22 04:00 Discharge Plan Discharge Plan Patient Disposition: Home Activity: Ambulate as Tolerated Diet: Regular Additional Instructions: DISCHARGE INSTRUCTIONS FOR POSTERIOR LUMBAR INTERBODY FUSION OR POSTERIOR LUMBARFUSION DIET-regular home diet ACTIVITY - Wear brace when sitting and standing and out of bed - Activity as tolerated; No lifting over 15 pounds - Stairs as tolerated - Walk as much as possible - No driving until seen by physician; may ride in car -May shower tomorrow. When taking first shower leave dressing on complete shower remove dressing dry the wound if any drainage is present place a dressingif no drainage is present may leave open to air - Keep incision clean and dry OTHER - Call your provider's office for any fever, chills, nausea, vomiting, headache,numbness, or tingling. - Call your providers office and make an appointment to see your provider in 2 weeks. Use ice as needed for back spasm 20 minutes every 1-2 hours Use the prednisone provided if the leg pain returns to a significant degree after surgery. If it does not do not use the prednisone Prescriptions: New cyclobenzaprine 10 mg tablet 10 mg PO TID PRN (Reason: back spasms) Qty: 40 RF: 0 cephalexin 500 mg capsule 500 mg PO TID Qty: 15 RF: 0 oxycodone 5 mg Tablet 5 - 10 mg PO Q6H PRN (Reason: Pain) 8 Days Qty: 20 RF: 0 prednisone 10 mg tablets,dose pack 1 dose pk PO PER PKG DIR Qty: 30 RF: 0 Continued budesonide-formoterol [Symbicort] 160-4.5 mcg/actuation HFA aerosol inhaler 2 puff INHALATION BID RF: 0 omeprazole 40 mg capsule,delayed release(DR/EC) 40 mg PO DAILY RF: 0 etodolac 500 mg tablet extended release 24 hr 500 mg PO BID RF: 0 duloxetine 60 mg capsule,delayed release(DR/EC) 60 mg PO DAILY RF: 0 Linzess 145 mcg capsule 145 mcg PO DAILY RF: 0 calcium carbonate [Calcium 600] 600 mg calcium (1,500 mg) Tablet 1,200 mg PO DAILY RF: 0 cholecalciferol (vitamin D3) [Vitamin D3] 125 mcg (5,000 unit) Tablet 5,000 unit PO DAILY RF: 0 omega 0-mru-byo-fish oil [Fish Oil] 1,200 (144-216) mg Capsule 1 cap PO DAILY RF: 0 Follow Up: Minh Mazariegos MD [Active Staff] - (Office is currently closed, please call office on Friday to schedule follow up appointment.) Documented By: Minh Mazariegos MD 01/25/22 0801 Signed By: <Electronically signed by MD Minh Mazariegos> 01/25/22 102 [facility] Work Phone: Evaluation noteNo assessment information available [facility] Diagnosis Onset Date Resolution Status Lumbar stenosis with neurogenic claudication acute [facility] Work Phone: Evaluation noteNo [employer] Other evaluation note* Diagnosis COPD exacerbation (CMS/HCC)- Primary Obstructive chronic bronchitis with exacerbation Major depressive disorder, recurrent, moderate (F33.1) Major depressive disorder, recurrent episode, moderate Tobacco abuse Tobacco use disorder [facility] Diagnosis Onset Date Resolution Status Colon cancer screening acute Epigastric pain acute Exocrine pancreatic insufficiency acute [facility] Work Phone: Evaluation note* Diagnosis Onset Date Resolution Status Colon cancer screening acute Epigastric pain acute Exocrine pancreatic insufficiency acute Cervical myelopathy acute History of lumbar fusion acu te [facility] Work Phone: Evaluation note* Diagnosis Anal condyloma- Primary Condyloma acuminatum Encounter for screening for HIV Anal lesion Other specified disorder of rectum and anus [facility] Preop examination- Primary Preoperative examination, unspecified Smoker Tobacco use disorder Chronic obstructive pulmonary disease, unspecified COPD type (HCC) Gastroesophageal reflux disease without esophagitis Esophageal reflux Primary hypertension Unspecified essential hypertension Obstructive sleep apnea syndrome Obstructive sleep apnea (adult) (pediatric) Anal lesion Other specified disorder of rectum and anus * Assessment & Plan Note - Augustina Mcgarry APRN.CNP - 02/02/2024 3:37 PM EDT Associated Problem(s): Obstructive sleep apnea syndrome Assessment: Does not use CPAP * Assessment & Plan Note - Augustina Mcgarry APRN.CNP - 02/02/2024 3:37 PM EDT Associated Problem(s): Primary hypertension Assessment: Managed with med, stable. Date: BP: 02/02/2024 135/73 01/27/2024 139/79 Follows with PCP * Assessment & Plan Note - Augustina Mcgarry APRN.CNP - 02/02/2024 3:36 PM EDT Associated Problem(s): GERD (gastroesophageal reflux disease) Assessment: Pt. reports symptoms controlled with medication * Assessment & Plan Note - Augustina Mcgarry APRN.CNP - 02/02/2024 3:36 PM EDT Associated Problem(s): COPD (chronic obstructive pulmonary disease) (HCC) Assessment: COPD Managed with Trelegy and Albuterol Inhalers Evaluated by Yolanda Daniels DO (Pulmonary 07/02/2023) Denies recent exacerbation RA 02/02/24 1448 SpO2: 96% * Assessment & Plan Note - Augustina Mcgarry APRN.CNP - 02/02/2024 3:35 PM EDT Associated Problem(s): Smoker Assessment: 50 pack year cigarette smoker Cessation with strategies encouraged. [facility] Diagnosis Onset Date Resolution Status Cervical myelopathy acute History of lumbar fusion [facility] Work Phone: Evaluation note* Diagnosis Onset Date Resolution Status Cervical myelopathy acute History of lumbar fusion u Cervical myelopathy acute History of lumbar fusion [facility] Work Phone: Evaluation note* Diagnosis Preop examination- Primary Preoperative examination, unspecified Smoker Tobacco use disorder Chronic obstructive pulmonary disease, unspecified COPD type (HCC) Gastroesophageal reflux disease without esophagitis Esophageal reflux Primary hypertension Unspecified essential hypertension Obstructive sleep apnea syndrome Obstructive sleep apnea (adult) (pediatric) Adenomatous polyposis- Primary Benign neoplasm of unspecified site Family history of leukemia Family history of breast cancer Family history of malignant neoplasm of breast Family history of colon cancer Family history of malignant neoplasm of gastrointestinal tract [facility] Diagnosis Onset Date Resolution Status Cervical myelopathy acute History of lumbar fusion acu te Cervical myelopathy acute History of fusion of cervical spine acute History of lumbar fusion acu te Occipital neuralgia of right side acute [facility] Work Phone: Evaluation note* Diagnosis Onset Date Resolution Status Cervical myelopathy acute History of fusion of cervical spine acute History of lumbar fusion acu te Occipital neuralgia of right side acute Chronic constipation acute GERD (gastroesophageal reflux disease) acute History of colon polyps acut e [facility] Work Phone: Evaluation note* Diagnosis Encounter for immunization- Primary History of colon polyps GERD without esophagitis Esophageal reflux Essential hypertension (CMS/HCC) Unspecified essential hypertension documented in this encounter [facility]* Diagnosis GERD without esophagitis- Primary Esophageal reflux Constipation, unspecified constipation type Chronic obstructive pulmonary disease, unspecified COPD type (CMS/HCC) Abnormal chest x-ray Nonspecific (abnormal) findings on radiological and other examination of lung field Arthritis, lumbar spine Primary insomnia Persistent disorder of initiating or maintaining sleep Essential hypertension (CMS/HCC) Unspecified essential hypertension Moderate episode of recurrent major depressive disorder (CMS/HCC) COPD exacerbation (CMS/HCC)- Primary Obstructive chronic bronchitis with exacerbation Chest wall pain Painful respiration Chest wall pain Painful respiration documented in this encounter [facility] HealthcareEvaluation note* Diagnosis GERD without esophagitis- Primary Esophageal reflux Constipation, unspecified constipation type Chronic obstructive pulmonary disease, unspecified COPD type (CMS/HCC) Abnormal chest x-ray Nonspecific (abnormal) findings on radiological and other examination of lung field Arthritis, lumbar spine Primary insomnia Persistent disorder of initiating or maintaining sleep Essential hypertension (CMS/HCC) Unspecified essential hypertension Moderate episode of recurrent major depressive disorder (CMS/HCC) Abnormal chest x-ray- Primary Nonspecific (abnormal) findings on radiological and other examination of lung field documented in this encounter [facility] HealthcareEvaluation note* Diagnosis GERD without esophagitis- Primary Esophageal reflux Constipation, unspecified constipation type Chronic obstructive pulmonary disease, unspecified COPD type (CMS/HCC) Abnormal chest x-ray Nonspecific (abnormal) findings on radiological and other examination of lung field Arthritis, lumbar spine Primary insomnia Persistent disorder of initiating or maintaining sleep Essential hypertension (CMS/HCC) Unspecified essential hypertension Moderate episode of recurrent major depressive disorder (CMS/HCC) Chronic obstructive pulmonary disease with acute exacerbation (CMS/HCC)- Primary Chronic obstructive pulmonary disease with acute exacerbation (CMS/HCC) documented in this encounter [facility]* Diagnosis GERD without esophagitis- Primary Esophageal reflux Constipation, unspecified constipation type Chronic obstructive pulmonary disease, unspecified COPD type (CMS/HCC) Abnormal chest x-ray Nonspecific (abnormal) findings on radiological and other examination of lung field Arthritis, lumbar spine Primary insomnia Persistent disorder of initiating or maintaining sleep Essential hypertension (CMS/HCC) Unspecified essential hypertension Moderate episode of recurrent major depressive disorder (CMS/HCC) Gastroesophageal reflux disease without esophagitis Esophageal reflux documented in this encounter [facility] HealthcareEvaluation note* Diagnosis GERD without esophagitis- Primary Esophageal reflux Constipation, unspecified constipation type Chronic obstructive pulmonary disease, unspecified COPD type (CMS/HCC) Abnormal chest x-ray Nonspecific (abnormal) findings on radiological and other examination of lung field Arthritis, lumbar spine Primary insomnia Persistent disorder of initiating or maintaining sleep Essential hypertension (CMS/HCC) Unspecified essential hypertension Moderate episode of recurrent major depressive disorder (CMS/HCC) Gastroenteritis- Primary Other and unspecified noninfectious gastroenteritis and colitis Encounter for screening mammogram for malignant neoplasm of breast documented in this encounter [facility] HealthcareHistory and physical note Author Temi Fajardo [facility] June 01, 2024 12:32pm Note Date/Time June 01, 2024 12 :32pm [facility] [address] [place] [address] Gastroenterology H&P Signed Patient: Debra Delarosa MR#: [id number] : 1955 Acct:[id number] Age/Sex: 68 / F Adm Date: 4 Loc: Room: Type: [facility] Attending Dr: Temi Fajardo DO Copies to: DO Raji Whitfield MD~ Date of Service: 06/01/2024 HISTORY & PHYSICAL: Patient's history with special attention to the cardiovascular, pulmonary systems and the current problem was reviewed with the patient immediately prior to the procedure. Present medications and doses reviewed in the EMR. Allergies and pertinent laboratory tests were also reviewedat this time in the EMR. The physical examination, as below, was then performed. Indication, assessment and HPI: 68-year-old female who presents for colonoscopy for personal history of colon polyps. Last colonoscopy in December 2023 with many polyps removed. Family history of GI malignancy? No PHYSICAL EXAMINATION General appearance: cooperative, NAD Skin: No jaundice, no rash or lesions Head: NCAT Eyes: Anicteric Neck: Supple Lungs: Normal respiratory effort, no use of accessory muscles Abdomen: Soft, nondistended Neuro: No focal deficits, Ox3. REVIEW OF SYSTEMS Constitutional: Denies malaise, fevers Cardiovascular: Denies chest pain, palpitations Respiratory: Denies shortness of breath, wheezing Gastrointestinal: As per HPI Genitourinary: Denies dysuria, polyuria Musculoskeletal: Denies joint swelling, joint stiffness Neurological: Denies confusion, numbness, tingling Endocrine: Denies fatigue Written informed consent obtained from the patient. Risks (including but not limited to perforation, infection, bloating, bleeding, need for emergent surgeryand loss of life), benefits and alternatives explained and questions answered. The patient verbalized understanding. Based on history patient is an appropriate candidate for the procedure. Temi Fajardo DO Present medication and doses reviewed in the EMR Documented By: Temi Fajardo DO 06/01/24 1231 Signed By: <Electronically signed by Temi Fajardo DO> 06/01/24 1232 [facility] Work Phone: [place] general Narrative - Reported* Type Description Date Medical History Cholesterol Surgical History Neck Surgery Surgical History back surgery Surgical History knee replacement-right Surgical History gallbladder Surgical History C section Surgical History carpal tunnel release-bilat Hospitalization History see above [employer] Other History general Narrative - Reported* Type Description Date Medical History Cholesterol Medical History COPD Surgical History Neck Surgery Surgical History back surgery Surgical History knee replacement-right Surgical History cholecystectomy Surgical History C section Surgical History carpal tunnel release-bilat Surgical History ankle surgery replacement-right Surgical History shoulder replacement-left Hospitalization History see above Hospitalization History COPD and septic 10/2022 [employer] Other Hospital Discharge instructions Additional Instructions DISCHARGE INSTRUCTIONS FOR ENDOSCOPY FOR COLONOSCOPY: -Expect a gassy or full feeling after a colonoscopy. Report any NEW abdominal pain or vomiting. -Watch for rectal bleeding if you have a polyp removed. You may have oozing, but notify the doctor if you pass clots. -Avoid aspirin for 2 days IF a polyp is removed. -It is important to keep your appointments for follow up examinations because polyps can grow back. FOR JONES/EGD/ERCP/PEG: -Your throat may feel sore today from the scope that the doctor passed through your throat to visualize your stomach. Take a throat lozenge or suck on ice to ease the discomfort. -Do NOT smoke. -You may notice some streaks of blood in your sputum if the doctor has taken a biopsy. Notify the doctor if you cough up large amounts of blood. -Expect a gassy or full feeling after esophagoscopy. Report any persistent pain or vomiting. -Take it easy today. You need not stay in bed, but avoid strenuous activities such as jogging. FOR SEDATION FOR 24 HOURS: -NO driving -Do NOT operate machinery such as power tools, lawn mowers, snow blowers, sewing machines, etc. -Avoid alcoholic beverages and drugs for allergies, nerves, or sleep. -Do NOT stay alone. Do NOT leave your child unattended. -Do NOT make important personal or business decisions or sign any legal documents. -Eat solid foods and drink liquids in smaller amounts than usual until normal appetite returns. If you should experience an upset stomach, liquids high in sugar content (soda, Leon-aid, non-acid juices) are recommended. -You can resume normal activities tomorrow. FOLLOW UP Please call the office and make a follow up appointment to see me in 6-8 weeks. Low FODMAP diet Certess 1 p.o. twice daily -Notify the doctor if you have any problems. -[facility] number [phone] Work Phone: Hospital Discharge instructionsAmbulatory Orders* Referral to Speech/PT/OT (PT/OT/SP) Location: None [facility] Work Phone: Reason for visit NarrativeReferral Dr. Raji Haile [facility] [employer] Other Chief Complaint and Reason for Visit Chief Complaint covid positive Chief Complaint m48.062 Chief Complaint m48.062 Stenosis Chief Complaint m48.062 Stenosis Stenosis Chief Complaint m48.062 Stenosis Stenosis Stenosis Reason for Visit Lumbar stenosis with neurogenic claudication Chief Complaint m48.062 Stenosis Stenosis Stenosis M43.16 Reason for Visit Lumbar stenosis with neurogenic claudication Chief Complaint M43.16 M43.16 Chief Complaint m43.16 Chief Complaint m43.16 R10.9 R63.4 Chief Complaint m43.16 R10.9 R63.4 Gerd, Abdominal Pain, Weight Loss, Dyspepsia Chief Complaint m43.16 R10.9 R63.4 Gerd, Abdominal Pain, Weight Loss, Dyspepsia R10.9 Chief Complaint R10.9 R63.4 Gerd, Abdominal Pain, Weight Loss, Dyspepsia R10.9 Z98.1 Chief Complaint Z98.1 I71.40 M43.16 Chief Complaint 6 MONTH F/U EPI/EPIG ASTRIC PAIN Reason for Visit Colon cancer screeni ng Epigastric pain Exocrine pancreatic insufficiency Chief Complaint 6 MONTH F/U EPI/EPIG ASTRIC PAIN Screening Screening Reason for Visit Colon cancer screeni ng Epigastric pain Exocrine pancreatic insufficiency Chief Complaint 6 MONTH F/U EPI/EPIG ASTRIC PAIN Screening Screening Screening Screening Reason for Visit Colon cancer screeni ng Epigastric pain Exocrine pancreatic insufficiency Chief Complaint 6 MONTH F/U EPI/EPIG ASTRIC PAIN Screening Screening Screening Screening Amb Documentation M54.50 yearly f/u XLIF w/xray Reason for Visit Colon cancer screeni ng Epigastric pain Exocrine pancreatic insufficiency Chief Complaint 6 MONTH F/U EPI/EPIG ASTRIC PAIN Screening Screening Screening Screening Amb Documentation M54.50 yearly f/u XLIF w/xray Reason for Visit Colon cancer screeni ng Epigastric pain Exocrine pancreatic insufficiency Cervical myelopathy History of lumbar fusion Chief Complaint Screening Screening Screening Screening Amb Documentation M54.50 yearly f/u XLIF w/xray f/u after PT for neck pain Reason for Visit Cervical myelopathy History of lumbar fusion Chief Complaint Screening Screening Amb Documentation M54.50 yearly f/u XLIF w/xray f/u after PT for neck pain G95.9 Reason for Visit Cervical myelopathy History of lumbar fusion Cervical myelopathy History of lumbar fusion Chief Complaint f/u after PT for nec k pain G95.9 mri results Reason for Visit Cervical myelopathy History of lumbar fusion Chief Complaint f/u after PT for nec k pain G95.9 mri results 6 month follow up Reason for Visit Cervical myelopathy History of lumbar fusion Cervical myelopathy History of fusion of cervical spine History of lumbar fusion Occipital neuralgia of right side Chief Complaint G95.9 mri results 6 month follow up hx of colon polyps hx of colon polyps Reason for Visit Cervical myelopathy History of fusion of cervical spine History of lumbar fusion Occipital neuralgia of right side Chronic constipation GERD (gastroesophageal reflux disease) History of colon polyps Chief Complaint G95.9 mri results 6 month follow up hx of colon polyps hx of colon polyps I71.40 Reason for Visit Cervical myelopathy History of fusion of cervical spine History of lumbar fusion Occipital neuralgia of right side Chronic constipation GERD (gastroesophageal reflux disease) History of colon polyps Advance Directives No Advanced Directives Records Found Advance Directive Response Recorded Date/ Time Advance Directives No June 17, 2017 12:29pm Advance Directive Response Recorded Date/ Time Advance Directives No June 17, 2017 1:29pm Family History No Family History Records Found Relationship Condition Age at Onset Recorded Date/T pippa Not Specified Hypertension Unknown sister Diabetes mellitus Unknown Not Specified Diabetes mellitus Unknown Coronary artery disease Unknown brother Rheumatoid arthritis Unknown father Rheumatoid arthritis Unknown Relationship Condition Age at Onset Recorded Date/T pippa Not Specified Hypertension Unknown sister Diabetes mellitus Unknown Not Specified Diabetes mellitus Unknown Coronary artery disease Unknown brother Rheumatoid arthritis Unknown father Rheumatoid arthritis Unknown father Unknown family member Unknown Unknown natural son Unknown Relationship Condition Age at Onset Recorded Date/T pippa sister Diabetes mellitus Unknown Not Specified Diabetes mellitus Unknown Coronary artery disease Unknown brother Rheumatoid arthritis Unknown Hypertension Unknown father Rheumatoid arthritis Unknown Relationship Condition Age at Onset Recorded Date/T pippa sister Diabetes mellitus Unknown mother Diabetes mellitus Unknown Coronary artery disease Unknown brother Rheumatoid arthritis Unknown Hypertension Unknown father Rheumatoid arthritis Unknown Summary Purpose Reason for Referral Reason Aqua therapy - evalu ate and treat Diagnosis 1 Spondylolisthesis, l umbar region (M43.16) Referral Organization [facility] Ne urosurgery Referring Provider First Name Sanjuana Referring Provider Last Name Serge Referring Provider Specialty Nurse Pract itioner Referred Organization [facility] Referred Address [address], [place],[address] Referred Provider Specialty Physical The rapist Referral Priority Routine Additional Source Comments Goals (unrecognized section and content) Goals may be documented in a n alternate sectionGoals may be documented in an alternate sectionGoals may be documented in an alternate sectionGoals may be documented in an alternate sectionNo InformationNo InformationNo InformationNo InformationNo InformationGoals may be documented in an alternate sectionNo InformationGoals may be documented in an alternate sectionNo InformationGoals may be documented in an alternate sectionNo InformationNo InformationNo InformationNo InformationGoals may be documented in an alternate sectionNo InformationGoals may be documented in an alternate sectionGoals may be documented in an alternate sectionGoals may be documented in an alternate sectionGoals may be documented in an alternate section Care Teams (unrecognized sec tion and content) Team Status: Inactive Member Role Status Rasheed Haile MD Primary Care Provider Active Minh Mazariegos MD Attending Provider Active Team Status: Active Member Role Status Rasheed Haile MD Primary Care Provider Active Team Status: Inactive Member Role Status Rasheed Haile MD Primary Care Provider Active Minh Mazariegos MD Admit Provider, Attending Provider A ctive Team Status: Inactive Member Role Status Rasheed Haile MD Primary Care Provider Active Bharat Valdivia MD Attending Provider Active Team Status: Inactive Member Role Status Rasheed Haile MD Primary Care Provider Active Sanujana Valentine [employer]-C Attending Provider Active Benefits Clerk Relationship Specialty Start Date End Date Raji Haile MD [address] [place] [address] PCP - General Family Medicine 01/28/23 Benefits Clerk Relationship Specialty Start Date End Date Raji Haile MD [address] [facility] [place] [address] PCP - General Family Medicine 01/28/23 Team Status: Inactive Member Role Status Rasheed Haile MD Primary Care Provider Active Sta rt: November 27, 2023 End: November 27, 2023 Bharat Valdivia MD Attending Provider Active Start: November 27, 2023 End: November 27, 2023 Team Status: Inactive Member Role Status Rasheed Haile MD Primary Care Provider Active Sta rt: December 16, 2023 End: December 16, 2023 Temi Fajardo DO Attending Provider Active St art: December 16, 2023 End: December 16, 2023 Team Status: Active Member Role Status Rasheed Haile MD Primary Care Provider Active Sta rt: December 16, 2023 Temi Fajardo DO Attending Provider, Other Provider Active Start: December 16, 2023 Team Status: Inactive Member Role Status Rasheed Haile MD Primary Care Provider Active Sta rt: December 30, 2023 End: December 30, 2023 Temi Fajardo DO Attending Provider Active St art: December 30, 2023 End: December 30, 2023 Team Status: Active Member Role Status Rasheed Haile MD Primary Care Provider Active Sta rt: December 30, 2023 Temi Fajardo DO Attending Provider, Other Provider Active Start: December 30, 2023 Team Status: Active Member Role Status Rasheed Haile MD Primary Care Provider Active Sta rt: January 02, 2024 Krystle Burdick CMA Attending Provider Active St art: January 02, 2024 Team Status: Active Member Role Status Rasheed Haile MD Primary Care Provider Active Sta rt: January 20, 2024 Minh Mazariegos MD Attending Provider Active Star t: January 20, 2024 Team Status: Inactive Member Role Status Rasheed Haile MD Primary Care Provider Active Sta rt: January 20, 2024 End: January 20, 2024 Minh Mazariegos MD Attending Provider Active Star t: January 20, 2024 End: January 20, 2024 Benefits Clerk Relationship Specialty Start Date End Date Raji Haile MD [address] [place] [address] PCP - General Family Medicine 02/02/24 Yolanda Daniels DO [address] [facility] [place] [address] Internal Medicine 02/02/24 Team Status: Inactive Member Role Status Rasheed Haile MD Primary Care Provider Active Sta rt: March 02, 2024 End: March 02, 2024 Anisa Horowitz APRN Attending Provider Active Start: March 02, 2024 End: March 02, 2024 Team Status: Inactive Member Role Status Rasheed Haile MD Primary Care Provider Active Sta rt: March 25, 2024 End: March 25, 2024 Anisa Horowitz APRN Attending Provider Active Start: March 25, 2024 End: March 25, 2024 Team Status: Inactive Member Role Status Rasheed Haile MD Primary Care Provider Active Sta rt: April 22, 2024 End: April 22, 2024 Minh Mazariegso MD Attending Provider Active Star t: April 22, 2024 End: April 22, 2024 Benefits Clerk Relationship Specialty Start Date End Date Raji Haile MD [address] [facility] [place] [address] PCP - General Family Medicine 02/02/24 Yolanda Daniels DO [address] [facility] [place] [address] Internal Medicine 02/02/24 Team Status: Inactive Member Role Status Dates Raji Haile MD Primary Care Provider Active Sta rt: May 12, 2024 End: May 12, 2024 Temi Fajardo DO Attending Provider Active St art: May 12, 2024 End: May 12, 2024 Benefits Clerk Relationship Specialty Start Date End Date Raji Haile MD [address] [facility] [place] [address] PCP - General Family Medicine 02/02/24 Yolanda Daniels DO [address] [facility] [place] [address] Internal Medicine 02/02/24 Benefits Clerk Relationship Specialty Start Date End Date Raji Haile MD [address] [facility] [place] [address] PCP - General Family Medicine 02/02/24 Yolanda Daniels DO [address] [place] [address] Internal Medicine 02/02/24 Team Status: Inactive Member Role Status Dates Raji Haile MD Primary Care Provider Active Sta rt: June 01, 2024 End: June 01, 2024 Temi Fajardo DO Attending Provider Active St art: June 01, 2024 End: June 01, 2024 Team Status: Active Member Role Status Dates Raji Haile MD Primary Care Provider Active Sta rt: June 01, 2024 Temi Fajardo DO Attending Provider, Other Provider Active Start: June 01, 2024 Team Status: Inactive Member Role Status Dates Raji Haile MD Primary Care Provider Active Sta rt: June 07, 2024 End: June 07, 2024 Bharat Valdivia MD Attending Provider Active Start: June 07, 2024 End: June 07, 2024 Benefits Clerk Relationship Specialty Start Date End Date Raji Haile MD [address] [place] [address] PCP - General Family Medicine 01/28/23 Benefits Clerk Relationship Specialty Start Date End Date Raji Haile MD [address] [place] [address] PCP - General Family Medicine 01/28/23 Benefits Clerk Relationship Specialty Start Date End Date Raji Haile MD [address] [place] [address] PCP - General Family Medicine 01/28/23 Benefits Clerk Relationship Specialty Start Date End Date Raji Haile MD [address] [facility] [place] [address] PCP - General Family Medicine 01/28/23 Benefits Clerk Relationship Specialty Start Date End Date Raji Haile MD [address] [place] [address] PCP - General Family Medicine 01/28/23 Benefits Clerk Relationship Specialty Start Date End Date Raji Haile MD [address] [place] [address] PCP - General Family Medicine 01/28/23 Benefits Clerk Relationship Specialty Start Date End Date Raji Haile MD [address] [place] [address] PCP - General Family Medicine 01/28/23 Benefits Clerk Relationship Specialty Start Date End Date Raji Haile MD [address] [place] [address] PCP - General Family Medicine 01/28/23 REASON FOR VISIT (unrecogniz ed section and content) Reason Comments Cough Reason Comments Appointment Orders Reason Comments New Patient anal condyloma Reason Comments Appointment Reason Comments Colon Polyps Reason Comments Results Reason Comments Patient Question Results Reason Comments Results Negative genetic mariia t results Reason Comments Establish Care Reason Comments Chest Pain Patient presents tod ay for right sided chest pain with breathing, coughing, and specific movements. Patient states that this started last night. Patient also has cough with production of yellowish green sputum. Reason Comments Hypertension Reason Comments Abdominal Cramping Diarrhea INFORMATION SOURCE (unrecogn ized section and content) DATE CREATED AUTHOR 06/03/2022 [facility] DATE CREATED AUTHOR AUTHOR'S ORGANIZ ATION 10/20/2022 [facility] DATE CREATED AUTHOR AUTHOR'S ORGANIZ ATION 02/20/2024 [facility] DATE CREATED AUTHOR AUTHOR'S ORGANIZ ATION 02/25/2024 [facility] DATE CREATED AUTHOR AUTHOR'S ORGANIZ ATION 06/25/2024 [facility] DATE CREATED AUTHOR AUTHOR'S ORGANIZ ATION 08/23/2024 [facility] DATE CREATED AUTHOR AUTHOR'S ORGANIZ ATION 10/04/2024 [facility] Specialists EPIC Source Comments (unrecognize d section and content) In the event this informatio n is protected by the Federal Confidentiality of Alcohol and Drug Abuse Patient Records regulations: The Federal rules restrict any use of the information to criminally investigate or prosecute any alcohol or drug abuse patient.[facility] the event this information is protected by the Federal Confidentiality of Alcohol and Drug Abuse Patient Records regulations: The Federal rules restrict any use of the information to criminally investigate or prosecute any alcohol or drug abuse patient.[facility] the event this information is protected by the Federal Confidentiality of Alcohol and Drug Abuse Patient Records regulations: The Federal rules restrict any use of the information to criminally investigate or prosecute any alcohol or drug abuse patient.[facility] the event this information is protected by the Federal Confidentiality of Alcohol and Drug Abuse Patient Records regulations: The Federal rules restrict any use of the information to criminally investigate or prosecute any alcohol or drug abuse patient.[facility] the event this information is protected by the Federal Confidentiality of Alcohol and Drug Abuse Patient Records regulations: The Federal rules restrict any use of the information to criminally investigate or prosecute any alcohol or drug abuse patient.[facility] the event this information is protected by the Federal Confidentiality of Alcohol and Drug Abuse Patient Records regulations: The Federal rules restrict any use of the information to criminally investigate or prosecute any alcohol or drug abuse patient.[facility] Center[facility] the event this information is protected by the Federal Confidentiality of Alcohol and Drug Abuse Patient Records regulations: The Federal rules restrict any use of the information to criminally investigate or prosecute any alcohol or drug abuse patient.[facility] the event this information is protected by the Federal Confidentiality of Alcohol and Drug Abuse Patient Records regulations: The Federal rules restrict any use of the information to criminally investigate or prosecute any alcohol or drug abuse patient.[facility] Center[facility] the event this information is protected by the Federal Confidentiality of Alcohol and Drug Abuse Patient Records regulations: The Federal rules restrict any use of the information to criminally investigate or prosecute any alcohol or drug abuse patient.[facility] FOR RECORDS PERTAINING TO PATIENTS WHO ARE OR HAVE BEEN ENROLLED IN A CHEMICAL DEPENDENCY/SUBSTANCEABUSE PROGRAM, SOME INFORMATION MAY BE OMITTED. This clinical summary was aggregated from multiple sources. Caution should be exercised in using it in the provision of clinical care. This summary normalizes information from multiple sources, and as a consequence, information in this document may materially change the coding, format and clinical context of patient data. In addition, data may be omitted in some cases. CLINICAL DECISIONS SHOULD BE BASED ON THE PRIMARY CLINICAL RECORDS. [facility] provides no warranty or guarantee of the accuracy or completeness of information in this document.
== END 2024-10-06 07:10 | disposition home or self-care (01) ==
LOC: RAD 07:09
PROVIDERS: Visit Provider Podiatrist Foot & Ankle Surgery
DX: M25.571 Pain in right ankle and joints of right foot (principal); Z96.661 Presence of right artificial ankle joint
CPT/HCPCS: 73610